=== PATIENT | male | born 1965 | race Caucasian/White ===

== ENCOUNTER 2017-01-08 16:06 | Inpatient (IN) ==
--- NOTE | 2017-01-08 16:51 | Emergency Department Note ---
Disposition Clinical Impression: Community acquired pneumonia Sepsis Qualifiers: Sepsis type: sepsis due to unspecified organism Qualified Code(s): A41.9 - Sepsis, unspecified organism Disposition: Admitted As Inpatient Condition: Good SOB HPI - General Chief Complaint: ED Shortness of Breath/Dyspnea Stated Complaint: MIGUEL Time Seen by Provider: 01/08/17 16:35 Source: patient, family Mode of arrival: private vehicle Limitations: no limitations Nursing Notes Reviewed: Yes Vital Signs Reviewed: Yes - History of Present Illness 51-year-old male history of 40 pack year smoking who presents to the ER with family with a chief complaint of shortness of breath, cough and fever. Patient reports he has not been feeling well since . He felt weak at work but throughout the weekend he has developed a productive cough with yellow sputum. 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 He does not usually require oxygen supplementation or any medications for his smoking. He reports a significant amount of drainage from his sinuses each night but that seems to be more chronic. He denies any recent illnesses or hospitalizations. No history of diabetes, hypertension, UT, CAD or stents. No other complaints. Pt Subjective Complaint: shortness of breath, cough Onset (ago): day(s) (3) Severity: severe Consistency/Duration: constant Improves with: nothing Worsens with: nothing Known history of: other (Smoking) Associated symptoms: Reports: chest pain (With coughing), fever, cough, sputum production Treatment prior to arrival: none Cough present: Yes Cough Description: Involuntary Cough Frequency: Intermittent Sputum production: Yes Sputum Amount: Small Sputum Color: Yellow - Related Data Home oxygen amount: none Home Medications Medication Instructions Recorded Confirmed Flexeril 01/08/17 Motrin 01/08/17 Neurontin 01/08/17 Prozac 01/08/17 Vicodin 01/08/17 Allergies Allergy/AdvReac Type Severity Reaction Status Date / Time No Known Allergies Allergy Verified 01/08/17 15:20 All systems ED: reviewed and negative except as stated. Constitutional: Reports: fever, chills, weakness Cardiovascular: Reports: chest pain (With cough) Respiratory: Reports: cough, dyspnea, sputum production Gastrointestinal: Denies: abdominal pain, nausea, vomiting Past Medical History - Past Medical History Attestation: Yes The following information was validated with the patient. Source: patient Medical history: Reports: no medical history Surgical history: Reports: non-contributory Psychiatric history: Reports: anxiety, depression - Social History Smoking Status: Current every day smoker Smokeless Tobacco Status: No Alcohol use: Reports: none Drug use: Reports: none Physical Exam - General Limitations: no limitations General appearance: alert, in distress - Head Head exam: atraumatic, normocephalic, normal inspection - Eye Eye exam: Present: normal appearance, EOMI - ENT ENT exam: normal exam - Neck Neck exam: Present: normal inspection - Chest Chest inspection: Present: normal inspection, symmetric chest wall rise - Respiratory Respiratory exam: Present: respiratory distress (The patient is tachypneic breathing in the 20s. He has bilateral wheezing with prolonged expiratory phase with diminished breath sounds in the left.), wheezes, accessory muscle use - Cardiovascular Cardiovascular exam: Present: regular rate, normal rhythm, irregular rhythm - Abdominal Exam Abdominal exam: Present: soft, Non-Tender. Absent: tenderness - Extremities Exam Extremities exam: Present: normal inspection, full ROM - Expanded Upper Extremity Exam Shoulder exam: Present: normal inspection, full ROM Arm exam: Present: normal inspection, full ROM Elbow exam: Present: normal inspection, full ROM Forearm/Wrist exam: Present: normal inspection, full ROM Hand exam: Present: normal inspection, full ROM - Expanded Lower Extremity Exam Hip/Pelvis exam: Present: normal inspection, full ROM Upper leg exam: Present: normal inspection, full ROM Knee exam: Present: normal inspection, full ROM Lower leg exam: Present: normal inspection, full ROM Ankle exam: Present: normal inspection, full ROM Foot/toe exam: Present: normal inspection, full ROM - Neurological Exam Neurological exam: Present: alert - Psychiatric Psychiatric exam: Present: normal affect, normal mood - Skin Skin exam: Present: warm, dry, intact, normal color Course Course Narrative: Patient seen and examined. Vital signs reviewed. Febrile here to 102. He is to Make as well and 92% on room air. Supplemental oxygen has been applied respiratory therapy has been paged for DuoNeb treatments. He meets Sirs criteria so we will obtain lactate as well as blood cultures as well as obtain EKG and chest x-ray. Patient will likely require admission given his oxygen requirement and suspected pneumonia. - Reevaluation(s) Reevaluation #1: I discussed results of the x-ray with the patient and family. Reevaluation #2: CT chest showing lower lobe pneumonia. I discussed with the patient and that he will be admitted to the hospital. Patient and family in agreement. Vital Signs Temperature 102.2 F H 01/08/17 16:07 Pulse Rate 91 01/08/17 16:07 Respiratory Rate 22 01/08/17 16:07 Blood Pressure 179/82 01/08/17 16:07 O2 Sat by Pulse Oximetry 92 01/08/17 16:07 Temperature 102.2 F H 01/08/17 16:07 Pulse Rate 91 01/08/17 16:07 Respiratory Rate 22 01/08/17 17:14 Blood Pressure 179/82 01/08/17 16:07 O2 Sat by Pulse Oximetry 96 01/08/17 17:14 Oxygen Delivery Oxygen Delivery Room Air Shortness of Breath/Dyspnea - MDM Narrative Medical decision making narrative: 51-year-old male presents to the ER after feeling unwell for the last 3 days. He has had fevers at home as well as a productive cough with yellow sputum. He does smoke but is not on oxygen. He was 92% on room air here. Febrile at 102. X-ray showing primary congestion. However CT scan of the chest shows lower lobe infiltrates. His white count is normal. Other labs are within normal limits. He was treated with 2 L of normal saline as he is currently hemodynamically stable instead of the typical 30 mL/kg with a normal lactate. Blood cultures have been obtained and we did treat him with Vanc, Zosyn and Levaquin. Patient admitted to the hospitalist service for further management. - Lab Data Lab results reviewed: Yes I reviewed the patient's lab results. Result diagrams: 01/08/17 16:50 01/08/17 16:50 Lab Results 01/08/17 01/08/17 01/08/17 Range/Units 16:50 16:50 16:50 WBC 9.4 (4.3-11.1) K/mcL RBC 6.06 H (4.19-5.50) M/mcL Hgb 17.1 H (12.9-16.9) g/dL Hct 54.2 H (37.5-50.1) % MCV 89.4 (83.0-100.0) fL MCH 28.2 (28.0-33.3) pg MCHC 31.5 L (31.6-35.5) g/dL RDW 14.4 (11.5-14.5) % Plt Count 179 (140-400) K/mcL MPV 10.1 (9.4-12.4) fL Immature Gran % 0.5 (0-4) % Seg Neutrophils % 68.8 % Lymphocytes % 13.5 % Monocytes % 16.3 % Eosinophils % 0.5 % Basophils % 0.4 % Neutrophils # 6.4 (1.6-8.9) K/mcL Lymphocytes # 1.3 (0.6-4.6) K/mcL Monocytes # 1.5 H (0.0-1.3) K/mcL Eosinophils # 0.1 (0.0-0.6) K/mcL Basophils # 0.0 (0.0-0.2) K/mcL Immature Plt Fraction 5.8 (1.1-6.1) % Sodium 139 (136-145) mEq/L Potassium 4.3 (3.5-4.5) mEq/L Chloride 99 (98-109) mEq/L Carbon Dioxide 32 H (19-29) mEq/L BUN 9 (8-26) mg/dL Creatinine 0.88 (0.72-1.25) mg/dL Est GFR ( Amer) > 60 (> 60) Est GFR (Non-Af Amer) > 60 (> 60) BUN/Creatinine Ratio 10 (6-26) Glucose 100 H (70-99) mg/dL Calculated Osmolality 287 (280-300) Lactic Acid (0.5-2.2) mmol/L Calcium 9.0 (8.6-10.8) mg/dL Troponin I 0.02 (0-0.03) ng/mL B-Natriuretic Peptide (0-100) pg/mL 01/08/17 01/08/17 Range/Units 16:50 16:50 WBC (4.3-11.1) K/mcL RBC (4.19-5.50) M/mcL Hgb (12.9-16.9) g/dL Hct (37.5-50.1) % MCV (83.0-100.0) fL MCH (28.0-33.3) pg MCHC (31.6-35.5) g/dL RDW (11.5-14.5) % Plt Count (140-400) K/mcL MPV (9.4-12.4) fL Immature Gran % (0-4) % Seg Neutrophils % % Lymphocytes % % Monocytes % % Eosinophils % % Basophils % % Neutrophils # (1.6-8.9) K/mcL Lymphocytes # (0.6-4.6) K/mcL Monocytes # (0.0-1.3) K/mcL Eosinophils # (0.0-0.6) K/mcL Basophils # (0.0-0.2) K/mcL Immature Plt Fraction (1.1-6.1) % Sodium (136-145) mEq/L Potassium (3.5-4.5) mEq/L Chloride (98-109) mEq/L Carbon Dioxide (19-29) mEq/L BUN (8-26) mg/dL Creatinine (0.72-1.25) mg/dL Est GFR ( Amer) (> 60) Est GFR (Non-Af Amer) (> 60) BUN/Creatinine Ratio (6-26) Glucose (70-99) mg/dL Calculated Osmolality (280-300) Lactic Acid 1.2 (0.5-2.2) mmol/L Calcium (8.6-10.8) mg/dL Troponin I (0-0.03) ng/mL B-Natriuretic Peptide 26 (0-100) pg/mL - Radiology Data Radiology results reviewed: Yes I reviewed the patient's radiology results. Chest X-Ray 01/08/17 16:11 IMPRESSION: 1. Mild pulmonary vascular congestion, increased. D/ / Mark Layne MD / Mark Layne MD Interpreting Provider: Mark Layne MD Chest CT 01/08/17 17:38 IMPRESSION: 1. Lower lobe patchy consolidation with bronchial wall thickening. Given the clinical context, findings compatible with bronchopneumonia. 2. Centrilobular nodules in the left lower lobe, likely bronchiolitis. D/ / 01/08/2017 18:39:56 Spike Sierra MD / elenita Interpreting Provider: Spike Sierra MD - EKG Data EKG attestation: Yes I reviewed and interpreted this EKG. EKG results narrative: EKG demonstrates normal sinus rhythm with a rate of 86 bpm. Normal axis. Normal intervals. No ST elevations or depressions. No acute ischemic findings. S.B.Eliud - Meggan Situation: Demographics, MOA Background: Presenting Complaint, Relevant PMH, Meds, & Allergies Assessment: Vital Signs, Course and respsone to treatment, Exam Concerns, Patient/Family Expectation, Pertinant Lab Results, Outstanding Labs Recommendation: Barrier(s) to disposition, Recommendation based on pending studies, treatments, or consults S.B.A.Krista Report Given to: Dr. Sarthak Broderick Repor Time: 19:30 (attending spoke with hospitalist)
[2017-01-08 17:00] LABS: Basophils % 0.4 %; Eosinophils # 0.1 K/mcL (0.0-0.6); Eosinophils % 0.5 %; Hematocrit 54.2 % (37.5-50.1); Hemoglobin 17.1 g/dL (12.9-16.9); Immature Granulocytes % 0.5 % (0-4); Immature Platelets 5.8 % (1.1-6.1); Lymphocytes # 1.3 K/mcL (0.6-4.6); Lymphocytes % 13.5 %; Mean Corpuscular HGB Conc 31.5 g/dL (31.6-35.5); Mean Corpuscular Hemoglobin 28.2 pg (28.0-33.3); Mean Corpuscular Volume 89.4 fL (83.0-100.0); Mean Platelet Volume 10.1 fL (9.4-12.4); Monocytes # 1.5 K/mcL (0.0-1.3); Monocytes % 16.3 %; Neutrophils # 6.4 K/mcL (1.6-8.9); Platelet Count 179 K/mcL (140-400); Red Blood Count 6.06 M/mcL (4.19-5.50); Red Cell Distribution Width 14.4 % (11.5-14.5); Segmented Neutrophils % 68.8 %
[2017-01-08] MEDS ORDERED: Ipratropium/Albuterol Neb 3 ML IH ONE (17:08)
[2017-01-08] MEDS ORDERED: Ipratropium/Albuterol Neb 3 ML ONE (17:10)
[2017-01-08 17:14] LABS: BUN/Creatinine Ratio 10 (6-26); Blood Urea Nitrogen 9 mg/dL (8-26); Carbon Dioxide 32 mEq/L (19-29); Chloride 99 mEq/L (98-109); Glucose 100 mg/dL (70-99); Osmolality,Calculated 287 (280-300); Potassium 4.3 mEq/L (3.5-4.5); Sodium 139 mEq/L (136-145); eGFR For African Americans > 60 (> 60); eGFR For Non-African Americans > 60 (> 60)
[2017-01-08] MEDS ORDERED: Levofloxacin 750 MG/150 ML 750 MG/150 ML BAG IVPB ONE (17:28)
[2017-01-08] MEDS ORDERED: Piperacillin/Tazobactam 3.375 GM in D5% in Water (Mini-Bag+) 100 ML IVPB ONE (17:28)
[2017-01-08] MEDS ORDERED: Vancomycin 2,000 MG in D5% in Water 250 ML IVPB ONE (17:28)
--- NOTE | 2017-01-08 17:39 | Emergency Department Note ---
Disposition Clinical Impression: Community acquired pneumonia, Sepsis Disposition: Admitted As Inpatient Condition: Good General Adult HPI - General Chief complaint: ED Shortness of Breath/Dyspnea Stated complaint: MIGUEL Time Seen by Provider: 01/08/17 16:35 Source: patient, family Mode of arrival: private vehicle Limitations: no limitations - History of Present Illness Pain Scale: 8 - Related Data Home Medications Medication Instructions Recorded Confirmed Flexeril 01/08/17 Motrin 01/08/17 Neurontin 01/08/17 Prozac 01/08/17 Vicodin 01/08/17 Allergies Allergy/AdvReac Type Severity Reaction Status Date / Time No Known Allergies Allergy Verified 01/08/17 15:20 Constitutional: Reports: fever, chills, weakness Cardiovascular: Reports: chest pain (With cough) Respiratory: Reports: cough, dyspnea, sputum production Gastrointestinal: Denies: abdominal pain, nausea, vomiting Past Medical History - Past Medical History Medical history: Reports: no medical history Surgical history: Reports: non-contributory Psychiatric history: Reports: anxiety, depression - Social History Smoking Status: Current every day smoker Smokeless Tobacco Status: No Alcohol use: Reports: none Drug use: Reports: none Physical Exam - General Limitations: no limitations General appearance: alert, in distress Course - Reevaluation(s) Reevaluation #1: I saw the patient with the resident, Dr. Lee. Patient presents with fever, cough, shortness of breath. He started getting sick on . Cough is productive of thick white sputum. He reports significant shortness of breath that is limiting his activity level at home. On examination he has a temperature greater than 102 despite having taken 800 mg of Motrin an hour prior to arrival. He is tachypneic, O2 sat is low on room air, he has diffuse intense wheezing in all lung campbell. Currently receiving a breathing treatment. Initial chest x-ray was a poor inspiratory effort. Were going to go ahead and proceed with CT of the chest to evaluate the chest better. I think this is a respiratory infection associated with fever. He has multiple surgical criteria with a source of infection in the lungs and therefore will be treated as sepsis although his blood pressure is good and his labs look good. We initiated the initial sepsis antibiotics. Were awaiting the CT scan of the chest. In the end the patient's going need to be admitted for pulmonary infection, bronchospasm and oxygen requirement. Vital Signs Temperature 102.2 F H 01/08/17 16:07 Pulse Rate 91 01/08/17 16:07 Respiratory Rate 22 01/08/17 16:07 Blood Pressure 179/82 01/08/17 16:07 O2 Sat by Pulse Oximetry 92 01/08/17 16:07 Temperature 99.0 F 01/08/17 21:34 Pulse Rate 89 01/08/17 21:34 Respiratory Rate 21 01/08/17 21:34 Blood Pressure 146/79 01/08/17 21:34 O2 Sat by Pulse Oximetry 93 01/08/17 21:34 Oxygen Delivery Oxygen Delivery Room Air Medical Decision Making - Lab Data Result diagrams: 01/08/17 16:50 01/08/17 16:50 Lab Results 01/08/17 01/08/17 01/08/17 Range/Units 16:50 16:50 16:50 WBC 9.4 (4.3-11.1) K/mcL RBC 6.06 H (4.19-5.50) M/mcL Hgb 17.1 H (12.9-16.9) g/dL Hct 54.2 H (37.5-50.1) % MCV 89.4 (83.0-100.0) fL MCH 28.2 (28.0-33.3) pg MCHC 31.5 L (31.6-35.5) g/dL RDW 14.4 (11.5-14.5) % Plt Count 179 (140-400) K/mcL MPV 10.1 (9.4-12.4) fL Immature Gran % 0.5 (0-4) % Seg Neutrophils % 68.8 % Lymphocytes % 13.5 % Monocytes % 16.3 % Eosinophils % 0.5 % Basophils % 0.4 % Neutrophils # 6.4 (1.6-8.9) K/mcL Lymphocytes # 1.3 (0.6-4.6) K/mcL Monocytes # 1.5 H (0.0-1.3) K/mcL Eosinophils # 0.1 (0.0-0.6) K/mcL Basophils # 0.0 (0.0-0.2) K/mcL Immature Plt Fraction 5.8 (1.1-6.1) % Sodium 139 (136-145) mEq/L Potassium 4.3 (3.5-4.5) mEq/L Chloride 99 (98-109) mEq/L Carbon Dioxide 32 H (19-29) mEq/L BUN 9 (8-26) mg/dL Creatinine 0.88 (0.72-1.25) mg/dL Est GFR ( Amer) > 60 (> 60) Est GFR (Non-Af Amer) > 60 (> 60) BUN/Creatinine Ratio 10 (6-26) Glucose 100 H (70-99) mg/dL Calculated Osmolality 287 (280-300) Lactic Acid (0.5-2.2) mmol/L Calcium 9.0 (8.6-10.8) mg/dL Troponin I 0.02 (0-0.03) ng/mL B-Natriuretic Peptide (0-100) pg/mL 01/08/17 01/08/17 Range/Units 16:50 16:50 WBC (4.3-11.1) K/mcL RBC (4.19-5.50) M/mcL Hgb (12.9-16.9) g/dL Hct (37.5-50.1) % MCV (83.0-100.0) fL MCH (28.0-33.3) pg MCHC (31.6-35.5) g/dL RDW (11.5-14.5) % Plt Count (140-400) K/mcL MPV (9.4-12.4) fL Immature Gran % (0-4) % Seg Neutrophils % % Lymphocytes % % Monocytes % % Eosinophils % % Basophils % % Neutrophils # (1.6-8.9) K/mcL Lymphocytes # (0.6-4.6) K/mcL Monocytes # (0.0-1.3) K/mcL Eosinophils # (0.0-0.6) K/mcL Basophils # (0.0-0.2) K/mcL Immature Plt Fraction (1.1-6.1) % Sodium (136-145) mEq/L Potassium (3.5-4.5) mEq/L Chloride (98-109) mEq/L Carbon Dioxide (19-29) mEq/L BUN (8-26) mg/dL Creatinine (0.72-1.25) mg/dL Est GFR ( Amer) (> 60) Est GFR (Non-Af Amer) (> 60) BUN/Creatinine Ratio (6-26) Glucose (70-99) mg/dL Calculated Osmolality (280-300) Lactic Acid 1.2 (0.5-2.2) mmol/L Calcium (8.6-10.8) mg/dL Troponin I (0-0.03) ng/mL B-Natriuretic Peptide 26 (0-100) pg/mL Attestation Statement - Attestation Attestation: I, Dr. Fabian, examined this patient [id number] and my medical decision- making was reviewed with Dr. Lee, Resident Physician. I agree with the documented findings, disposition and treatment plan as described except to the extent set forth below. Please see my progress notes for details.
[2017-01-08] MEDS: 0.9 % Sodium Chloride 1,000 ML IVC SCH ×2 (17:57→18:03)
[2017-01-08] MEDS ORDERED: *HR* OxyCODONE/APAP 5/325 TABLET PO ONE (19:28)
[2017-01-08 19:53] LABS: Bilirubin,Urine Negative (Negative); Blood,Urine Negative (Negative); Clarity,Urine Clear (Clear); Color,Urine Yellow (Yellow); Glucose,Urine (UA) Normal (Normal); Ketones,Urine Negative (Negative); Leukocyte Esterase,Urine Negative (Negative); Nitrite,Urine Negative (Negative); PH,Urine 5.5 pH Units (5.0-8.0); Protein,Urine Negative (Neg-Trace); Specific Gravity,Urine 1.026 (1.010-1.025); Urobilinogen,Urine Normal (Normal)
[2017-01-08] MEDS ORDERED: Naloxone 0.4 MG/ML INJ IVP PRN (21:52)
[2017-01-08] MEDS ORDERED: methylPREDNISolone 125 MG/2 ML VIAL IVP ONE (21:54)
[2017-01-08] MEDS ORDERED: Ipratropium/Albuterol Neb 3 ML IH PRN (21:54)
--- NOTE | 2017-01-08 21:58 | Internal Med History&Physical ---
Date of Encounter: 01/08/17 Time of Encounter: 21:57 Assessment and Plan (1) Pneumonia Current visit: Yes Status: Acute CT scan of the chest reports lower lobe pneumonia. Will treat with levofloxacin. sputum cultures Qualifiers: Pneumonia type: due to unspecified organism Laterality: right Lung location: lower lobe of lung Qualified Code(s): J18.1 - Lobar pneumonia, unspecified organism (2) Bronchiectasis Current visit: Yes Status: Suspected On my personal review of the CT scan, there is evidence of bronchiectasis in the right lower lobe. Emperically treat with levofloxacin. Sputum cultures. Pulmonology consult. Qualifiers: Bronchiectasis type: with acute exacerbation Qualified Code(s): J47.1 - Bronchiectasis with (acute) exacerbation (3) COPD with acute exacerbation Current visit: Yes Status: Suspected Possible undiagnosed COPD with acute exacerbation. Treat with systemic steroids , bronchodilators, levofloxacin. (4) Acute respiratory failure Current visit: Yes Status: Acute Possibly due to to combination of pneumonia, COPD exacerbation and bronchiectasis. supplemental oxygen. Qualifiers: Respiratory failure complication: hypoxia Qualified Code(s): J96.01 - Acute respiratory failure with hypoxia (5) Sepsis Current visit: Yes Status: Acute Likely due to pneumonia> Lactate level is not elevated. Treat with IV antibiotics and IV fluids. Qualifiers: Sepsis type: sepsis due to unspecified organism Qualified Code(s): A41.9 - Sepsis, unspecified organism (6) Morbid obesity with BMI of 50.0-59.9, adult Current visit: Yes Status: Chronic Supportive care (7) DVT prophylaxis Current visit: Yes Status: Acute enoxaparin (8) Nicotine dependence Current visit: Yes Status: Chronic Counseled for smoking cessation Qualifiers: Nicotine product type: cigarettes Substance use status: unspecified nicotine-induced disorder Qualified Code(s): F17.219 - Nicotine dependence, cigarettes, with unspecified nicotine-induced disorders Internal Medicine - H&P: HPI Chief complaint: shortness of breath Admitted From: Emergency Dept Plans for Post Hospital Care: Home History of present illness: Mr. Castellon is a 51 year old male with history of 40 pack year smoking, presents to the ER with 4 day h/o shortness of breath on exertion, cough with white sputum. Reports some chest pain with cough. 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 He reports h/o multiple episodes of what the pt thinks as sinusitis / bronchitis and was treated with antibiotics. He reports feeling tired. He denies subjective fever, abdominal pain, nausea, vomiting, dysuria, hematuria, changes in bowel habits. He was evaluated in the emergency department and was noted to have temperature 100.2F. CT scan of the chest showed Lower lobe patchy consolidation with bronchial wall thickening, compatible with bronchopneumonia. He was given Floxin, vancomycin and Zosyn in the emergency department. He is admitted to the hospitalist service for further workup and management. Past Med Surg Social Fam HX - Past Medical History Medical history: kidney stones Psychiatric history: anxiety, depression - Past Surgical History Surgical History: non-contributory - Social History Smoking Status: Current every day smoker Packs per day: 1 Smokeless Tobacco Status: No Alcohol use: none Drug use: none - Family History Mother Hx Family Cancer: Yes Internal Medicine - H&P: Meds Flexeril 01/08/17 [History] Motrin 01/08/17 [History] Neurontin 01/08/17 [History] Prozac 01/08/17 [History] Vicodin 01/08/17 [History] Allergies No Known Allergies Allergy (Verified 01/08/17 15:20) All Systems PM: A 10-system review of systems was performed and is negative for pertinent findings except as documented above in the HPI. - Constitutional Vitals: Temp Pulse Resp BP Pulse Ox 99.0 F 89 21 146/79 93 01/08/17 21:34 01/08/17 21:34 01/08/17 21:34 01/08/17 21:34 01/08/17 21:34 Exam: General: Not in acute distress at the time of my evaluation HEENT: Oral mucosa is moist. No conjunctival palor or scleral icterus Neck: No obvious neck swellings Lungs: B/L occasional wheeze present. Right basal crackles present Cardiac: Regular rate and rhythm. No significant murmurs Abdomen: Obese, non tender. Bowel sounds present Genitourinary: No young catheter Neurological: Alert and oriented. No gross localizing deficits Psych: Not aggressive or agitated Extremities: B/L leg edema Skin: No generalized rash Internal Med - H&P Results - Labs CBC & Chem 7: 01/09/17 03:41 01/09/17 03:41 Labs: Urine 01/08/17 Range/Units 19:43 Urine Color Yellow (Yellow) Urine Clarity Clear (Clear) Urine pH 5.5 (5.0-8.0) pH Units Ur Specific Thayer 1.026 H (1.010-1.025) Urine Protein Negative (Neg-Trace) mg/dL Urine Glucose (UA) Normal (Normal) mg/dL - EKG Data -: EKG Interpreted by Myself EKG shows normal: sinus rhythm Rate: normal - Impressions ITS Impressions Chest X-Ray 01/08/17 16:11 IMPRESSION: 1. Mild pulmonary vascular congestion, increased. D/ / Mark Layne MD / Mark Layne MD Interpreting Provider: Mark Layne MD Chest CT 01/08/17 17:38 IMPRESSION: 1. Lower lobe patchy consolidation with bronchial wall thickening. Given the clinical context, findings compatible with bronchopneumonia. 2. Centrilobular nodules in the left lower lobe, likely bronchiolitis. D/ / 01/08/2017 18:39:56 Spike Sierra MD / eelnita Interpreting Provider: Spike Sierra MD
[2017-01-08] MEDS ORDERED: Acetaminophen 325 MG TABLET PO PRN (22:24)
[2017-01-08] MEDS: Ipratropium/Albuterol Neb 3 ML IH SCH ×2 (22:24→22:30)
[2017-01-08] MEDS: *HR* HYDROmorphone (PF) 1 MG/ML SYRINGE IVP PRN (22:42)
[2017-01-09] MEDS: *HR* HYDROcodone/Acet 5/325 mg TABLET PO PRN ×3 (02:39→19:00)
[2017-01-09 04:29] LABS: Basophils % 0.2 %; Hematocrit 53.8 % (37.5-50.1); Hemoglobin 16.9 g/dL (12.9-16.9); Immature Granulocytes % 0.4 % (0-4); Lymphocytes # 0.6 K/mcL (0.6-4.6); Lymphocytes % 6.6 %; Mean Corpuscular HGB Conc 31.4 g/dL (31.6-35.5); Mean Corpuscular Hemoglobin 28.2 pg (28.0-33.3); Mean Corpuscular Volume 89.8 fL (83.0-100.0); Mean Platelet Volume 10.7 fL (9.4-12.4); Monocytes # 0.3 K/mcL (0.0-1.3); Neutrophils # 8.6 K/mcL (1.6-8.9); Platelet Count 174 K/mcL (140-400); Red Blood Count 5.99 M/mcL (4.19-5.50); Red Cell Distribution Width 14.2 % (11.5-14.5); Segmented Neutrophils % 89.8 %
[2017-01-09 04:46] LABS: BUN/Creatinine Ratio 11 (6-26); Blood Urea Nitrogen 9 mg/dL (8-26); C-Reactive Protein 31 mg/L (Less than 5); Calcium 8.6 mg/dL (8.6-10.8); Carbon Dioxide 26 mEq/L (19-29); Chloride 100 mEq/L (98-109); Glucose 159 mg/dL (70-99); Magnesium 1.9 mg/dL (1.6-2.6); Osmolality,Calculated 284 (280-300); Potassium 4.5 mEq/L (3.5-4.5); Sodium 136 mEq/L (136-145); eGFR For African Americans > 60 (> 60); eGFR For Non-African Americans > 60 (> 60)
[2017-01-09] MEDS: Ipratropium/Albuterol Neb 3 ML IH SCH ×4 (04:47→23:26)
[2017-01-09] MEDS: *HR* Enoxaparin 40 MG/0.4 ML SYRINGE SQ SCH (05:42)
[2017-01-09] MEDS: methylPREDNISolone 125 MG/2 ML VIAL IVP SCH ×3 (05:42→21:06)
[2017-01-09] MEDS ORDERED: methylPREDNISolone 125 MG/2 ML VIAL IVP SCH (06:00)
--- NOTE | 2017-01-09 08:58 | Internal Med Progress Note ---
<Shlomo Smith - Last Filed: 01/09/17 09:29> Date of Encounter: 01/09/17 Time of Encounter: 08:56 - Assessment and plan (1) Acute respiratory failure Current Visit: Yes Status: Acute Assessment and plan: Likely related to pneumonia as well as underlying lung pathology has been undiagnosed this time, possibly COPD and bronchiectasis. Continue supplemental oxygen to keep saturation above 90%. Qualifiers: Respiratory failure complication: hypoxia Qualified Code(s): J96.01 - Acute respiratory failure with hypoxia (2) Sepsis Current Visit: Yes Status: Resolved Assessment and plan: Patient presented with a heart rate greater than 90 and temperature 102.2 Fahrenheit with evidence of pneumonia. Resolved at this time. Continue antibiotic treatment. Cultures are pending. Qualifiers: Sepsis type: sepsis due to unspecified organism Qualified Code(s): A41.9 - Sepsis, unspecified organism (3) Community acquired pneumonia Current Visit: Yes Status: Acute Assessment and plan: Respiratory status appears improved. Continue Levaquin. (4) Bronchiectasis Current Visit: Yes Status: Suspected Assessment and plan: With evidence on CT scan of the chest. No underlying diagnosed lung history. Pulmonary consult pending. Continue breathing treatments, steroids. Qualifiers: Bronchiectasis type: with acute exacerbation Qualified Code(s): J47.1 - Bronchiectasis with (acute) exacerbation (5) COPD with acute exacerbation Current Visit: Yes Status: Suspected Assessment and plan: Patient has not been formally diagnosed but given his smoking history patient likely has underlying COPD and is in acute exacerbation with shortness of breath , cough, increased sputum production. Continue with antibiotics as discussed above, bronchodilators, IV steroids. Patient should have formal PFTs as an outpatient. (6) Nicotine dependence Current Visit: Yes Status: Chronic Assessment and plan: Patient has [id number] history. Discussed smoking cessation with the patient , he does not appear interested at this time. We will continue to discuss. Qualifiers: Nicotine product type: cigarettes Substance use status: unspecified nicotine-induced disorder Qualified Code(s): F17.219 - Nicotine dependence, cigarettes, with unspecified nicotine-induced disorders (7) DVT prophylaxis Current Visit: Yes Status: Acute Assessment and plan: Lovenox 40 mg subcutaneous daily. - Subjective Interval history: Patient seen and examined at bedside. Patient states he feels mildly better than yesterday. He states he is still coughing but it is minimally productive. He reports pain in his chest and abdomen when coughing. - Constitutional Vitals: Temp Pulse Resp BP Pulse Ox 98.4 F 83 16 166/100 98 01/09/17 06:44 01/09/17 06:44 01/09/17 06:44 01/09/17 06:44 01/09/17 07:54 General appearance: Present: A&O X 3, obese - Respiratory Respiratory exam: Present: rhonchi (L upper and lower lobes), wheezes ( throughout). Absent: respiratory distress, tachypnea - Cardiovascular Cardiovascular exam: Present: RRR. Absent: gallop, rubs, systolic murmur - GI/Abdominal GI/Abdominal exam: Present: normal bowel sounds, soft. Absent: distended, tenderness Internal Medicine: Result - Labs CBC & Chem 7: 01/09/17 03:41 01/09/17 03:41 Labs: Short CBC 01/09/17 Range/Units 03:41 WBC 9.5 (4.3-11.1) K/mcL Hgb 16.9 (12.9-16.9) g/dL Hct 53.8 H (37.5-50.1) % Plt Count 174 (140-400) K/mcL Neutrophils # 8.6 (1.6-8.9) K/mcL BMP 01/09/17 03:41 Sodium 136 Potassium 4.5 Chloride 100 Carbon Dioxide 26 BUN 9 Creatinine 0.79 Glucose 159 H Calcium 8.6 Consult Discharge Plan - Plan Referrals: Sherman Mccall Jr, MD [Primary Care Provider] - <Florinda Tolliver - Last Filed: 01/09/17 13:58> Date of Encounter: 01/09/17 - Constitutional Vitals: Temp Pulse Resp BP Pulse Ox 98.0 F 83 18 167/90 98 01/09/17 10:50 01/09/17 10:50 01/09/17 10:50 01/09/17 10:50 01/09/17 10:50 Internal Medicine: Result - Labs CBC & Chem 7: 01/09/17 03:41 01/09/17 03:41 Labs: Short CBC 01/09/17 Range/Units 03:41 WBC 9.5 (4.3-11.1) K/mcL Hgb 16.9 (12.9-16.9) g/dL Hct 53.8 H (37.5-50.1) % Plt Count 174 (140-400) K/mcL Neutrophils # 8.6 (1.6-8.9) K/mcL BMP 01/09/17 03:41 Sodium 136 Potassium 4.5 Chloride 100 Carbon Dioxide 26 BUN 9 Creatinine 0.79 Glucose 159 H Calcium 8.6 - Attending Attestation I saw and examined pt. I have discussed with Resident Dr Cunningham regarding pt's management plan. I agree with the documentation. Pt still has SOB and cough, improved after treatment. Treat as acute pneumonia and brochitis. Pt is a current smoker, need to r/o COPD. Will cont abx, steroid and bronchodilator and consult pulmonology.
[2017-01-09] MEDS: Lactobacillus 1 EACH CAP.SPRINK PO SCH ×2 (09:55→21:07)
[2017-01-09] MEDS: FLUoxetine 20 MG CAPSULE PO SCH (09:59)
--- NOTE | 2017-01-09 16:57 | Pulmonology Consult Note ---
Date of Encounter: 01/09/17 Time of Encounter: 16:15 Assessment and Plan (1) Dyspnea Current Visit: No Status: Acute 51-year-old male admitted for acute dyspnea with history of several years of intermittent similar symptoms. Described as upper respiratory complaints, frequent diagnoses of bronchitis. Etiology of current presentation is not clear but given his smoking history it is possible that he has undiagnosed underlying COPD. No prior diagnosis of asthma, however he does have significant wheezing on exam. Reviewed CT imaging does show a right lower lobe abnormality, however this finding in this clinical setting is not consistent with pneumonia. Patient has shown clinical response over a relatively short period to systemic corticosteroids and inhaled bronchodilators which would favor airway disease such as asthma or COPD over pneumonia. Reviewed CT images does not reveal the presence of bronchiectasis. The appearance of the distal bronchi in the lower lobe is more consistent with bronchial cuffing in the surrounding parenchymal changes highlighting the lumen of the bronchi Recommendations: 1: Continue systemic corticosteroids. Consider reducing dose to 50 mg oral prednisone daily. 2: Continue inhaled bronchodilators but would discontinue when necessary duo nebs in favor of when necessary albuterol. Continue scheduled duo nebs. 3: Low suspicion for pneumonia, discontinue Levaquin. Begin 5 day course of oral azithromycin to 500 mg on day 1 followed by 250 mg by mouth daily for 4 days. 4: Recommendation patient be referred for outpatient evaluation of allergic rhinitis as well as her pulmonary function testing and consideration of outpatient pulmonary consultation. 5: Recommend discharge with inhaled bronchodilator medications to include as needed albuterol and ICS/LABA Qualifiers: Dyspnea type: shortness of breath Qualified Code(s): R06.02 - Shortness of breath (2) Nicotine dependence Current Visit: Yes Status: Chronic Patient estimates [id number] active smoking history. Discussed benefits of tobacco cessation and the contribution of ongoing tobacco smoke exposure to his current presentation. Recommended patient seriously consider cessation of tobacco use. Qualifiers: Nicotine product type: cigarettes Substance use status: unspecified nicotine-induced disorder Qualified Code(s): F17.219 - Nicotine dependence, cigarettes, with unspecified nicotine-induced disorders History of Present Illness Consult date: 01/09/17 Reason for consult: dyspnea, cough, abnormal CXR/CT Chief complaint: Dyspnea and cough History of present illness: Consulted by internal medicine for evaluation of a 51-year-old male admitted yesterday for several days of dyspnea, cough, wheezing. Patient states the symptoms began several days prior to admission following what he believes to then heat exhaustion after extensive exertion while at work. Patient reports that since of last week, he has felt significant cramping in his abdomen and extremities. Patient also notes persistent nonproductive cough associated with resting and exertional dyspnea. Patient states that he has been having similar symptoms intermittently several times a year for the past 5- 10 years. Reports multiple diagnoses of bronchitis. States that respiratory syndromes typically begin with upper respiratory symptoms which she associates with seasonal or environmental allergies. This is typically followed by lower respiratory symptoms and often diagnoses bronchitis. Patient states his current symptoms are worse than his usual episodes. Since admission, patient been treated with inhaled bronchodilators, systemic corticosteroids, antibiotics. Patient still reports some ongoing dyspnea feels that his symptoms are improving since his admission. Past Med Surg Social Fam HX - Past Medical History Medical history: kidney stones Psychiatric history: anxiety, depression - Past Surgical History Surgical History: non-contributory - Social History Smoking Status: Current every day smoker Packs per day: 1 Smokeless Tobacco Status: No Alcohol use: none Drug use: none Occupational status: employed Recent Out of Country Travel Within the Last 8 Weeks: No Exposure or Possible Exposure to Illness During Travel: No Additional social history: Employed as a arc welder apprentice. Denies using respiratory protection at work. Lives in a mobile home built 1995. Reports presence of old carpets in poor condition. Denies mold and mildew burden. - Family History Mother Hx Family Cancer: Yes Medications and Allergies Cyclobenzaprine [Flexeril] 10 mg PO TID PRN 01/09/17 [History] FLUoxetine HCl [PROzac] 20 mg PO DAILY 01/09/17 [History] Gabapentin [Neurontin] 300 mg PO HS 01/09/17 [History] Ibuprofen [Motrin] 800 mg PO Q6-8H PRN 01/09/17 [History] Multivits,Ca,Min/Iron/FA/Lycop [Men Under 50 Multivitamin Tab] 1 tab PO DAILY [History] Allergies No Known Allergies Allergy (Verified 01/09/17 09:02) All Systems: A 10-system review of systems was performed and is negative for pertinent findings except as documented above in the HPI. - Constitutional Constitutional: chills, excessive sweating, fever(s) - EENT Eyes: no loss of peripheral vision, no loss of vision Ears: no decreased hearing, no tinnitus Nose, mouth and throat: nasal congestion, nasal discharge, nasal obstruction, post-nasal drip, sinus pain, sinus pressure, no dysphagia, no odynophagia, no sore throat, no throat swelling - Cardiovascular Cardiovascular: dyspnea, dyspnea on exertion, no chest pain with activity, no claudication, no edema, no irregular heart rhythm - Respiratory Respiratory: cough, dyspnea, dyspnea on exertion, wheezing, no hemoptysis, no pain on inspirtation, no excessive phlegm production - Gastrointestinal Gastrointestinal: cramping, no abdominal pain, no diarrhea, no heartburn, no nausea, no vomiting - Genitourinary Genitourinary: no dysuria - Musculoskeletal Musculoskeletal: other (Muscle cramping) - Integumentary Integumentary: no rash - Neurological Neurological: no numbness, no paresthesias, no sensory deficit, no syncope - Hematologic/Lymphatic Hematologic/Lymphatic: no lymphadenopathy - Allergic/Immunologic Allergic/Immunologic: wheezing, no lip swelling Physical Examination Vital Signs: Vital Signs, Last 4 Hours Temp Pulse Resp BP Pulse Ox 01/09/17 15:16 97.8 F 74 18 150/86 98 General appearance: appears uncomfortable Eyes: nonicteric ENT: oropharynx moist Neck: supple, no lymphadenopathy Effort: mildly labored Inspection: normal Auscultation: bilateral: wheezes Cardiovascular: regular rate and rhythm Gastrointestinal: normoactive bowel sounds, non-tender, non-distended Integumentary: normal Extremities: no cyanosis, no edema, no clubbing Musculoskeletal: no deformities Gait: normal gait normal mental status, non-focal exam mood appropriate Results - Laboratory Findings CBC and BMP: 01/09/17 03:41 01/09/17 03:41 Abnormal lab findings: Abnormal lab results RBC 5.99 M/mcL (4.19-5.50) H 01/09/17 03:41 Hct 53.8 % (37.5-50.1) H 01/09/17 03:41 MCHC 31.4 g/dL (31.6-35.5) L 01/09/17 03:41 Glucose 159 mg/dL (70-99) H 01/09/17 03:41 POC Glucose 98 (58-89) H 01/08/17 21:18 C-Reactive Protein 31 mg/L (Less than 5) H 01/09/17 03:41 Ur Specific [place] 1.026 (1.010-1.025) H 01/08/17 19:43 - Diagnostic Findings CT scan - chest: image reviewed - Clinical Findings Intake & Output: Intake & Output 01/09/17 01/09/17 01/09/17 07:59 15:59 23:59 Intake Total 1160 / 1160 Balance 1160 / 1160 Weight 169.814 kg Consult Discharge Plan - Plan Referrals: Sherman Mccall Jr, MD [Primary Care Provider] -
--- NOTE | 2017-01-09 17:55 | Electrocardiograph Report ---
[place] [id number] Test Date: 2017-01-08 Pat Name: Dimitris Castellon Department: 103 Room: 2NE23 Gender: M Destination Coordinator: KE : 1965 Requested By: Abbe Harvey Order Number: [id number] Reading MD: Efe Espinal MD Measurements Intervals [place] Rate: 86 P: 0 IN: 183 QRS: 42 QRSD: 92 T: 60 QT: 358 QTc: 402 Interpretive Statements SINUS RHYTHM BASELINE ARTIFACT Poor R wave progression Electronically Signed On 01-09-2017 17:53:29 EDT by Efe Espinal MD
[2017-01-09] MEDS: Benzonatate 100 MG CAPSULE PO PRN (19:00)
[2017-01-09] MEDS ORDERED: Levofloxacin 750 MG/150 ML 750 MG/150 ML BAG IVPB SCH (20:00)
[2017-01-09] MEDS: Gabapentin 300 MG CAPSULE PO SCH (21:07)
[2017-01-09] MEDS: *HR* HYDROmorphone (PF) 1 MG/ML SYRINGE IVP PRN (21:09)
[2017-01-10] MEDS: *HR* HYDROmorphone (PF) 1 MG/ML SYRINGE IVP PRN ×4 (01:10→17:16)
[2017-01-10] MEDS: Ipratropium/Albuterol Neb 3 ML IH SCH ×4 (04:26→21:18)
[2017-01-10] MEDS: Benzonatate 100 MG CAPSULE PO PRN ×3 (06:15→17:16)
[2017-01-10] MEDS: methylPREDNISolone 125 MG/2 ML VIAL IVP SCH (06:17)
[2017-01-10] MEDS: *HR* Enoxaparin 40 MG/0.4 ML SYRINGE SQ SCH (06:21)
[2017-01-10] MEDS ORDERED: predniSONE 20 MG TABLET PO ONE (08:14)
[2017-01-10] MEDS ORDERED: Azithromycin 500 MG in D5% in Water 250 ML IVPB ONE (08:15)
[2017-01-10] MEDS ORDERED: Albuterol 2.5 MG/3 ML NEBULIZER IH PRN (08:15)
[2017-01-10 08:27] LABS: Basophils % 0.2 %; Hematocrit 54.6 % (37.5-50.1); Hemoglobin 16.9 g/dL (12.9-16.9); Immature Granulocytes % 0.6 % (0-4); Lymphocytes # 0.8 K/mcL (0.6-4.6); Lymphocytes % 5.1 %; Mean Corpuscular Hemoglobin 28.5 pg (28.0-33.3); Mean Corpuscular Volume 91.9 fL (83.0-100.0); Mean Platelet Volume 10.6 fL (9.4-12.4); Monocytes # 0.9 K/mcL (0.0-1.3); Monocytes % 5.6 %; Neutrophils # 14.6 K/mcL (1.6-8.9); Platelet Count 203 K/mcL (140-400); Red Blood Count 5.94 M/mcL (4.19-5.50); Red Cell Distribution Width 13.8 % (11.5-14.5); Segmented Neutrophils % 88.5 %
[2017-01-10 08:37] LABS: BUN/Creatinine Ratio 14 (6-26); Blood Urea Nitrogen 11 mg/dL (8-26); Carbon Dioxide 32 mEq/L (19-29); Chloride 101 mEq/L (98-109); Sodium 141 mEq/L (136-145); eGFR For African Americans > 60 (> 60)
[2017-01-10 08:38] LABS: Glucose 194 mg/dL (70-99); Osmolality,Calculated 297 (280-300); eGFR For Non-African Americans > 60 (> 60)
[2017-01-10 08:40] LABS: Potassium 4.7 mEq/L (3.5-4.5)
--- NOTE | 2017-01-10 10:05 | Internal Med Progress Note ---
<HawaShlomo matos - Last Filed: 01/10/17 10:02> Date of Encounter: 01/10/17 Time of Encounter: 10:02 - Assessment and plan (1) Acute respiratory failure Current Visit: Yes Status: Acute Assessment and plan: Likely related to undiagnosed underlying COPD with acute exacerbation. Oxygenation improved from yesterday. Continue supplemental oxygen to keep saturation above 90%. Given the patient's risk factors cardiac causes and also be concerned, we will check an echocardiogram and possibly stress test. Qualifiers: Respiratory failure complication: hypoxia Qualified Code(s): J96.01 - Acute respiratory failure with hypoxia (2) Sepsis Current Visit: Yes Status: Resolved Assessment and plan: Patient presented with a heart rate greater than 90 and temperature 102.2 Fahrenheit with evidence of pneumonia. Resolved at this time. Continue antibiotic treatment. Cultures are pending. Qualifiers: Sepsis type: sepsis due to unspecified organism Qualified Code(s): A41.9 - Sepsis, unspecified organism (3) Community acquired pneumonia Current Visit: Yes Status: Acute Assessment and plan: Respiratory status appears improved. Transition from Levaquin to azithromycin. (4) Bronchiectasis Current Visit: Yes Status: Suspected Assessment and plan: Appears unlikely per CT scan reviewed with the associate engineer. Patient would likely benefit from a outpatient pulmonology follow-up as well as formal PFTs.. Qualifiers: Bronchiectasis type: with acute exacerbation Qualified Code(s): J47.1 - Bronchiectasis with (acute) exacerbation (5) COPD with acute exacerbation Current Visit: Yes Status: Suspected Assessment and plan: Patient has not been formally diagnosed but given his smoking history patient likely has underlying COPD and is in acute exacerbation with shortness of breath , cough, increased sputum production. Continue with antibiotics as discussed above, bronchodilators, transitioned to by mouth steroids. Patient should have formal PFTs as an outpatient. Appreciate pulmonology recommendations. (6) Nicotine dependence Current Visit: Yes Status: Chronic Assessment and plan: Patient has [id number] history. Discussed smoking cessation with the patient , he does not appear interested at this time. We will continue to discuss. Qualifiers: Nicotine product type: cigarettes Substance use status: unspecified nicotine-induced disorder Qualified Code(s): F17.219 - Nicotine dependence, cigarettes, with unspecified nicotine-induced disorders (7) DVT prophylaxis Current Visit: Yes Status: Acute Assessment and plan: Lovenox 40 mg subcutaneous daily. - Subjective Interval history: Patient seen and examined at bedside. Patient states he feels better than yesterday. He states he is still coughing but it is minimally productive. He reports pain in his chest and abdomen when coughing. He denies any fever, chills. - Constitutional Vitals: Temp Pulse Resp BP Pulse Ox 97.7 F 83 18 152/85 92 01/10/17 07:10 01/10/17 07:10 01/10/17 07:10 01/10/17 07:10 01/10/17 07:10 General appearance: Present: A&O X 3, no acute distress, obese - Respiratory Respiratory exam: Present: wheezes (Scattered). Absent: respiratory distress, rhonchi, tachypnea - Cardiovascular Cardiovascular exam: Present: RRR. Absent: gallop, rubs, systolic murmur - GI/Abdominal GI/Abdominal exam: Present: normal bowel sounds, soft. Absent: distended, tenderness - Extremities Exam Extremities exam: Present: pedal edema (Trace) - Neurological Exam Neurological exam: Present: alert, CN II-XII intact, oriented X3, no focal deficits Internal Medicine: Result - Labs CBC & Chem 7: 01/10/17 08:18 01/10/17 08:18 Labs: Short CBC 01/10/17 Range/Units 08:18 WBC 16.5 H D (4.3-11.1) K/mcL Hgb 16.9 (12.9-16.9) g/dL Hct 54.6 H (37.5-50.1) % Plt Count 203 (140-400) K/mcL Neutrophils # 14.6 H (1.6-8.9) K/mcL BMP 01/10/17 08:18 Sodium 141 Potassium 4.7 H Chloride 101 Carbon Dioxide 32 H BUN 11 Creatinine 0.81 Glucose 194 H Calcium 9.0 Consult Discharge Plan - Plan Referrals: Sherman Mccall Jr, MD [Primary Care Provider] - <Guille Gee - Last Filed: 01/10/17 16:36> Date of Encounter: 01/10/17 - Constitutional Vitals: Temp Pulse Resp BP Pulse Ox 98.1 F 96 18 163/90 94 01/10/17 15:37 01/10/17 15:37 01/10/17 15:37 01/10/17 15:37 01/10/17 15:37 Internal Medicine: Result - Labs CBC & Chem 7: 01/10/17 08:18 01/10/17 08:18 Labs: Short CBC 01/10/17 Range/Units 08:18 WBC 16.5 H D (4.3-11.1) K/mcL Hgb 16.9 (12.9-16.9) g/dL Hct 54.6 H (37.5-50.1) % Plt Count 203 (140-400) K/mcL Neutrophils # 14.6 H (1.6-8.9) K/mcL BMP 01/10/17 08:18 Sodium 141 Potassium 4.7 H Chloride 101 Carbon Dioxide 32 H BUN 11 Creatinine 0.81 Glucose 194 H Calcium 9.0 - Attending Attestation I examined this patient and my medical decision-making was reviewed with the [employer]ER/PA/Advanced Practice Nurse/Resident Physician. I agree with the documented findings, disposition and treatment plan as described except to the extent set forth below. ECHO and NST pulmonary input appreciated.
[2017-01-10] MEDS: FLUoxetine 20 MG CAPSULE PO SCH (10:19)
[2017-01-10] MEDS: Lactobacillus 1 EACH CAP.SPRINK PO SCH ×2 (10:19→20:50)
[2017-01-10] MEDS: Sennosides/Docusate Sodium TABLET PO SCH ×2 (12:53→20:49)
[2017-01-10] MEDS: *HR* HYDROcodone/Acet 5/325 mg TABLET PO PRN ×2 (12:57→21:09)
--- NOTE | 2017-01-10 13:49 | Pulmonology Progress Note ---
Date of Encounter: 01/10/17 Time of Encounter: 11:20 Assessment and Plan (1) Dyspnea Current Visit: No Status: Acute Etiology remains unclear. Given his history of prolonged tobacco abuse, suspect undiagnosed COPD with possible overlap syndrome. Occupational exposure is possible given his work history, but no radiographic findings to support this. Patient is showing clinical improvement with bronchodilators, systemic corticosteroids, and azithromycin. Minimal oxygen requirement while at rest. Patient will need ambulatory desaturation study prior to discharge. The patient displays any with her hypoxemia, he will require outpatient supplemental oxygen pending follow-up with pulmonary. Otherwise, no new recommendations today. Qualifiers: Dyspnea type: shortness of breath Qualified Code(s): R06.02 - Shortness of breath (2) Nicotine dependence Current Visit: Yes Status: Chronic Readdressed benefits of tobacco cessation the patient today. Continue to encourage cessation. Qualifiers: Nicotine product type: cigarettes Substance use status: unspecified nicotine-induced disorder Qualified Code(s): F17.219 - Nicotine dependence, cigarettes, with unspecified nicotine-induced disorders Subjective Principal diagnosis: Dyspnea Interval history: Consult to defer a 51-year-old male admitted for shortness of breath most likely due to undiagnosed COPD versus asthma versus occupational exposure. Initially treated with broad-spectrum antibiotics for presumed pneumonia. Antibiotics have been tailored to azithromycin monotherapy for coverage for possible COPD exacerbation. Steroids have been decreased from Solu-Medrol every 6 hours prednisone 50 mg daily. Patient is tolerated well. Today patient reports some improvement in his air movement per notes slight increase in cough and persistent audible wheezing. Patient has been able to ambulate has required continuous supplemental oxygen during ambulation. Otherwise, patient has no new complaints this morning. No acute events overnight. Objective PUL Vital signs: Last Vital Signs Temp 97.8 F 01/10/17 12:37 Pulse 96 01/10/17 12:37 Resp 18 01/10/17 12:37 BP 164/79 01/10/17 12:37 Pulse Ox 95 01/10/17 12:37 General appearance: no acute distress Eyes: nonicteric ENT: oropharynx dry Neck: supple Effort: normal Auscultation: bilateral: wheezes Cardiovascular: regular rate and rhythm Gastrointestinal: normoactive bowel sounds, non-tender, non-distended Integumentary: normal Extremities: no cyanosis, no clubbing Musculoskeletal: no deformities normal mental status mood appropriate Results - Laboratory Findings CBC and BMP: 06/20/17 08:18 01/10/17 08:18 Abnormal lab findings: Abnormal lab results WBC 16.5 K/mcL (4.3-11.1) H D 01/10/17 08:18 RBC 5.94 M/mcL (4.19-5.50) H 01/10/17 08:18 Hct 54.6 % (37.5-50.1) H 01/10/17 08:18 MCHC 31.0 g/dL (31.6-35.5) L 01/10/17 08:18 Neutrophils # 14.6 K/mcL (1.6-8.9) H 01/10/17 08:18 Potassium 4.7 mEq/L (3.5-4.5) H 01/10/17 08:18 Carbon Dioxide 32 mEq/L (19-29) H 01/10/17 08:18 Glucose 194 mg/dL (70-99) H 01/10/17 08:18 POC Glucose 98 (58-89) H 01/08/17 21:18 C-Reactive Protein 31 mg/L (Less than 5) H 01/09/17 03:41 Ur Specific [place] 1.026 (1.010-1.025) H 01/08/17 19:43 - Clinical Findings Intake & Output: Intake & Output 01/09/17 01/10/17 01/10/17 23:59 07:59 15:59 Intake Total 630 / 630 490 / 490 Balance 630 / 630 490 / 490 Weight 169.6 kg Consult Discharge Plan - Plan Referrals: Sherman Mccall Jr, MD [Primary Care Provider] -
[2017-01-10] MEDS: Gabapentin 300 MG CAPSULE PO SCH (20:50)
[2017-01-11] MEDS: Ipratropium/Albuterol Neb 3 ML IH SCH ×4 (04:04→22:56)
[2017-01-11] MEDS: *HR* Enoxaparin 40 MG/0.4 ML SYRINGE SQ SCH (04:48)
[2017-01-11] MEDS: Benzonatate 100 MG CAPSULE PO PRN (04:48)
[2017-01-11] MEDS: *HR* HYDROmorphone (PF) 1 MG/ML SYRINGE IVP PRN ×2 (04:49→11:47)
[2017-01-11] MEDS ORDERED: Regadenoson 0.4 MG/5 ML SYRINGE IVP ONE (06:27)
[2017-01-11 07:49] LABS: BUN/Creatinine Ratio 13 (6-26); Blood Urea Nitrogen 11 mg/dL (8-26); Calcium 8.9 mg/dL (8.6-10.8); Carbon Dioxide 34 mEq/L (19-29); Chloride 100 mEq/L (98-109); Glucose 96 mg/dL (70-99); Osmolality,Calculated 291 (280-300); Potassium 4.2 mEq/L (3.5-4.5); Sodium 141 mEq/L (136-145); eGFR For African Americans > 60 (> 60); eGFR For Non-African Americans > 60 (> 60)
[2017-01-11 08:19] LABS: Basophils % 0.2 %; Eosinophils % 0.1 %; Hematocrit 53.4 % (37.5-50.1); Hemoglobin 16.6 g/dL (12.9-16.9); Immature Granulocytes % 0.6 % (0-4); Lymphocytes # 1.9 K/mcL (0.6-4.6); Lymphocytes % 10.9 %; Mean Corpuscular HGB Conc 31.1 g/dL (31.6-35.5); Mean Corpuscular Hemoglobin 28.6 pg (28.0-33.3); Mean Corpuscular Volume 91.9 fL (83.0-100.0); Mean Platelet Volume 10.8 fL (9.4-12.4); Monocytes # 1.7 K/mcL (0.0-1.3); Monocytes % 9.6 %; Neutrophils # 13.8 K/mcL (1.6-8.9); Platelet Count 219 K/mcL (140-400); Red Blood Count 5.81 M/mcL (4.19-5.50); Segmented Neutrophils % 78.6 %
[2017-01-11] MEDS ORDERED: Azithromycin 250 MG in D5% in Water 250 ML IVPB SCH (09:00)
[2017-01-11] MEDS: Sennosides/Docusate Sodium TABLET PO SCH (09:26)
[2017-01-11] MEDS: Lactobacillus 1 EACH CAP.SPRINK PO SCH ×2 (09:26→22:03)
[2017-01-11] MEDS: FLUoxetine 20 MG CAPSULE PO SCH (09:26)
[2017-01-11] MEDS ORDERED: Furosemide 40 MG/4 ML VIAL IVP ONE (09:30)
[2017-01-11] MEDS ORDERED: Sennosides/Docusate Sodium TABLET PO PRN (09:30)
--- NOTE | 2017-01-11 09:50 | Internal Med Progress Note ---
<HawaShlomo matos - Last Filed: 01/11/17 09:47> Date of Encounter: 01/11/17 Time of Encounter: 09:47 - Assessment and plan (1) Acute respiratory failure Current Visit: Yes Status: Acute Assessment and plan: Likely multifactorial with undiagnosed underlying COPD with acute exacerbation as well as diastolic HF contributing. Oxygenation stable. Continue supplemental oxygen to keep saturation above 90%. Qualifiers: Respiratory failure complication: hypoxia Qualified Code(s): J96.01 - Acute respiratory failure with hypoxia (2) Sepsis Current Visit: Yes Status: Resolved Assessment and plan: Patient presented with a heart rate greater than 90 and temperature 102.2 Fahrenheit with evidence of pneumonia. Resolved at this time. Continue antibiotic treatment. Cultures are negative. Qualifiers: Sepsis type: sepsis due to unspecified organism Qualified Code(s): A41.9 - Sepsis, unspecified organism (3) (HFpEF) heart failure with preserved ejection fraction Current Visit: Yes Status: Acute Assessment and plan: Echo shows normal EF with mild diastolic dysfunction. CXR shows pulm vacsular congestion. Will try trial of diureses. Monitor kidney function and respiratory status. (4) Community acquired pneumonia Current Visit: Yes Status: Acute Assessment and plan: Respiratory status appears improved. Transition from Levaquin to azithromycin. (5) Bronchiectasis Current Visit: Yes Status: Suspected Assessment and plan: Appears unlikely per CT scan reviewed with the tissue packer. Patient would likely benefit from a outpatient pulmonology follow-up as well as formal PFTs.. Qualifiers: Bronchiectasis type: with acute exacerbation Qualified Code(s): J47.1 - Bronchiectasis with (acute) exacerbation (6) COPD with acute exacerbation Current Visit: Yes Status: Suspected Assessment and plan: Patient has not been formally diagnosed but given his smoking history patient likely has underlying COPD and is in acute exacerbation with shortness of breath , cough, increased sputum production. Continue with antibiotics as discussed above, bronchodilators, transitioned to by mouth steroids. Patient should have formal PFTs as an outpatient. Appreciate pulmonology recommendations. (7) Nicotine dependence Current Visit: Yes Status: Chronic Assessment and plan: Patient has 65-[id number]-uter history. Discussed smoking cessation with the patient , he does not appear interested at this time. We will continue to discuss. Qualifiers: Nicotine product type: cigarettes Substance use status: unspecified nicotine-induced disorder Qualified Code(s): F17.219 - Nicotine dependence, cigarettes, with unspecified nicotine-induced disorders (8) DVT prophylaxis Current Visit: Yes Status: Acute Assessment and plan: Lovenox 40 mg subcutaneous daily. - Subjective Interval history: Patient seen and examined at bedside. Patient states his breathing feels worse than yesterday. He states he is still coughing but it is minimally productive. He is unable to lie flat. He denies any fever, chills. - Constitutional Vitals: Temp Pulse Resp BP Pulse Ox 98.4 F 96 19 149/80 97 01/11/17 03:04 01/11/17 07:00 01/11/17 07:00 01/11/17 07:00 01/11/17 07:49 General appearance: Present: A&O X 3, no acute distress, obese - Respiratory Respiratory exam: Present: rales (bibasilar), wheezes (scatterred), tachypnea. Absent: rhonchi - Cardiovascular Cardiovascular exam: Present: RRR. Absent: gallop, rubs, systolic murmur - GI/Abdominal GI/Abdominal exam: Present: normal bowel sounds, soft. Absent: distended, tenderness - Extremities Exam Extremities exam: Present: warm. Absent: pedal edema, tenderness - Neurological Exam Neurological exam: Present: alert, CN II-XII intact, oriented X3, no focal deficits Internal Medicine: Result - Labs CBC & Chem 7: 01/11/17 07:13 01/11/17 07:13 Labs: Short CBC 01/11/17 Range/Units 07:13 WBC 17.5 H (4.3-11.1) K/mcL Hgb 16.6 (12.9-16.9) g/dL Hct 53.4 H (37.5-50.1) % Plt Count 219 (140-400) K/mcL Neutrophils # 13.8 H (1.6-8.9) K/mcL BMP 01/11/17 07:13 Sodium 141 Potassium 4.2 Chloride 100 Carbon Dioxide 34 H BUN 11 Creatinine 0.83 Glucose 96 Calcium 8.9 - Impressions Impressions Chest X-Ray 01/11/17 09:05 IMPRESSION: Unchanged cardiomegaly and pulmonary vascular congestion. D/ / Donnie Burris MD / Donnie Burris MD Interpreting Provider: Donnie Burris MD Consult Discharge Plan - Plan Referrals: Sherman Mccall Jr, MD [Primary Care Provider] - <MarlenGuille ferro P - Last Filed: 01/11/17 18:07> Date of Encounter: 01/11/17 - Constitutional Vitals: Temp Pulse Resp BP Pulse Ox 98.4 F 84 20 145/86 94 01/11/17 03:04 01/11/17 15:00 01/11/17 16:33 01/11/17 15:00 01/11/17 16:33 Internal Medicine: Result - Labs CBC & Chem 7: 01/11/17 07:13 01/11/17 07:13 Labs: Short CBC 01/11/17 Range/Units 07:13 WBC 17.5 H (4.3-11.1) K/mcL Hgb 16.6 (12.9-16.9) g/dL Hct 53.4 H (37.5-50.1) % Plt Count 219 (140-400) K/mcL Neutrophils # 13.8 H (1.6-8.9) K/mcL BMP 01/11/17 07:13 Sodium 141 Potassium 4.2 Chloride 100 Carbon Dioxide 34 H BUN 11 Creatinine 0.83 Glucose 96 Calcium 8.9 - Impressions Impressions Chest X-Ray 01/11/17 09:05 IMPRESSION: Unchanged cardiomegaly and pulmonary vascular congestion. D/ / Donnie Burris MD / Donnie Burris MD Interpreting Provider: Donnie Burris MD - Attending Attestation I examined this patient and my medical decision-making was reviewed with the CHIEF WELLNESS OFFICER/PA/Advanced Practice Nurse/Resident Physician. I agree with the documented findings, disposition and treatment plan as described except to the extent set forth below. pulmonary input appreciated. abx steroids Lasix and will try to get NST in couple of days
[2017-01-11] MEDS: levoFLOXacin 750 MG TABLET PO SCH (11:39)
[2017-01-11] MEDS: Budesonide/Formoterol 160/4.5 MDI IH SCH ×2 (11:39→22:56)
[2017-01-11] MEDS: predniSONE 20 MG TABLET PO SCH (11:49)
--- NOTE | 2017-01-11 13:26 | Pulmonology Progress Note ---
Date of Encounter: 01/11/17 Time of Encounter: 11:10 Assessment and Plan (1) Dyspnea Current Visit: No Status: Acute Patient's lack of clinical improvement is concerning. If his presentation would do to asthma or COPD exacerbation, with expected more improvement by this point. In light of his significant elevation leukocytosis, reasonable to consider broadening antibiotic coverage again given his initial diagnosis of pneumonia. Additionally, as he initially improved with high-dose IV corticosteroids a trial of a higher dose of prednisone, up to 1 mg/kg, for a short course could possibly help. At this point must also consider alternative diagnoses. 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 I would also be reasonable, despite current corticosteroid therapy, to obtain serologic screening markers for inflammatory diseases. Follow these are likely to be suppressed in the presence of systemic corticosteroids elevation in ESR or CRP or abnormalities in MARIA ELENA, ANCA, or rheumatoid factor could be suggestive of undiagnosed underlying disease. Qualifiers: Dyspnea type: shortness of breath Qualified Code(s): R06.02 - Shortness of breath (2) Nicotine dependence Current Visit: Yes Status: Chronic Readdressed benefits of tobacco cessation the patient today. Continue to encourage cessation. Qualifiers: Nicotine product type: cigarettes Substance use status: unspecified nicotine-induced disorder Qualified Code(s): F17.219 - Nicotine dependence, cigarettes, with unspecified nicotine-induced disorders Subjective Principal diagnosis: Dyspnea Interval history: Consult to defer a 51-year-old male admitted for shortness of breath which was suspected to be due to undiagnosed COPD versus asthma. Patient had previously been treated with antibiotics for community-acquired pneumonia. Initially showed improvement with bronchodilators, systemic steroids, and antibiotics. Corticosteroids were reduced in dose and transitioned to oral administration and antibiotics were tailored to azithromycin monotherapy to focus more on COPD exacerbation infectious pneumonia. This morning patient reports no improvement in symptoms and continued, persistent, nonproductive cough. Patient expresses some for frustration with his lack of improvement but denies progression of symptoms. Objective PUL Vital signs: Last Vital Signs Temp 98.4 F 01/11/17 03:04 Pulse 96 01/11/17 07:00 Resp 18 01/11/17 11:39 BP 149/80 01/11/17 07:00 Pulse Ox 95 01/11/17 11:39 General appearance: appears uncomfortable Eyes: nonicteric Neck: supple Auscultation: bilateral: wheezes Cardiovascular: regular rate and rhythm Gastrointestinal: normoactive bowel sounds, soft, non-tender Extremities: no cyanosis, no clubbing normal mental status mood appropriate, affect normal Results - Laboratory Findings CBC and BMP: 01/11/17 07:13 01/11/17 07:13 Abnormal lab findings: Abnormal lab results WBC 17.5 K/mcL (4.3-11.1) H 01/11/17 07:13 RBC 5.81 M/mcL (4.19-5.50) H 01/11/17 07:13 Hct 53.4 % (37.5-50.1) H 01/11/17 07:13 MCHC 31.1 g/dL (31.6-35.5) L 01/11/17 07:13 Neutrophils # 13.8 K/mcL (1.6-8.9) H 01/11/17 07:13 Monocytes # 1.7 K/mcL (0.0-1.3) H 01/11/17 07:13 Carbon Dioxide 34 mEq/L (19-29) H 01/11/17 07:13 POC Glucose 98 (58-89) H 01/08/17 21:18 C-Reactive Protein 31 mg/L (Less than 5) H 01/09/17 03:41 Ur Specific [place] 1.026 (1.010-1.025) H 01/08/17 19:43 - Clinical Findings Intake & Output: Intake & Output 01/10/17 01/11/17 01/11/17 23:59 07:59 15:59 Intake Total 1779 0 / 0 Output Total 0 / 0 450 / 450 Balance 178 / 1780 -450 / -450 Weight 167.45 kg Consult Discharge Plan - Plan Referrals: Sherman Mccall Jr, MD [Primary Care Provider] -
[2017-01-11] MEDS: *HR* HYDROcodone/Acet 5/325 mg TABLET PO PRN (13:36)
[2017-01-11] MEDS ORDERED: Furosemide 20 MG/2 ML VIAL IVP SCH (17:00)
[2017-01-11] MEDS: Gabapentin 300 MG CAPSULE PO SCH (22:03)
[2017-01-12] MEDS: Ipratropium/Albuterol Neb 3 ML IH SCH ×4 (04:21→22:56)
[2017-01-12 05:30] LABS: Basophils % 0.3 %; Eosinophils % 0.1 %; Hemoglobin 16.1 g/dL (12.9-16.9); Immature Granulocytes % 0.8 % (0-4); Lymphocytes # 1.7 K/mcL (0.6-4.6); Lymphocytes % 18.9 %; Mean Corpuscular HGB Conc 31.6 g/dL (31.6-35.5); Mean Corpuscular Hemoglobin 28.2 pg (28.0-33.3); Mean Corpuscular Volume 89.3 fL (83.0-100.0); Mean Platelet Volume 10.4 fL (9.4-12.4); Monocytes # 1.2 K/mcL (0.0-1.3); Monocytes % 13.6 %; Neutrophils # 6.1 K/mcL (1.6-8.9); Platelet Count 195 K/mcL (140-400); Red Blood Count 5.71 M/mcL (4.19-5.50); Red Cell Distribution Width 13.8 % (11.5-14.5); Segmented Neutrophils % 66.3 %
[2017-01-12 05:45] LABS: BUN/Creatinine Ratio 15 (6-26); Blood Urea Nitrogen 11 mg/dL (8-26); Carbon Dioxide 36 mEq/L (19-29); Chloride 98 mEq/L (98-109); Glucose 115 mg/dL (70-99); Magnesium 2.1 mg/dL (1.6-2.6); Osmolality,Calculated 292 (280-300); Sodium 141 mEq/L (136-145); eGFR For African Americans > 60 (> 60); eGFR For Non-African Americans > 60 (> 60)
[2017-01-12] MEDS: *HR* Enoxaparin 40 MG/0.4 ML SYRINGE SQ SCH (06:00)
[2017-01-12] MEDS ORDERED: Regadenoson 0.4 MG/5 ML SYRINGE IVP ONE (06:03)
[2017-01-12] MEDS: FLUoxetine 20 MG CAPSULE PO SCH (09:43)
[2017-01-12] MEDS: levoFLOXacin 750 MG TABLET PO SCH (09:43)
[2017-01-12] MEDS: Lactobacillus 1 EACH CAP.SPRINK PO SCH ×2 (09:43→21:06)
[2017-01-12] MEDS: predniSONE 20 MG TABLET PO SCH (09:44)
[2017-01-12] MEDS ORDERED: Furosemide 40 MG/4 ML VIAL IVP ONE (10:49)
[2017-01-12] MEDS: Budesonide/Formoterol 160/4.5 MDI IH SCH ×2 (11:18→22:57)
--- NOTE | 2017-01-12 13:55 | Internal Med Progress Note ---
<Shlomo Smith - Last Filed: 01/12/17 13:53> Date of Encounter: 01/12/17 Time of Encounter: 13:53 - Assessment and plan (1) Acute respiratory failure Current Visit: Yes Status: Acute Assessment and plan: Likely multifactorial with undiagnosed underlying COPD with acute exacerbation as well as diastolic HF contributing. Oxygenation improved. Continue supplemental oxygen to keep saturation above 90%. Qualifiers: Respiratory failure complication: hypoxia Qualified Code(s): J96.01 - Acute respiratory failure with hypoxia (2) Sepsis Current Visit: Yes Status: Resolved Assessment and plan: Patient presented with a heart rate greater than 90 and temperature 102.2 Fahrenheit with evidence of pneumonia. Resolved at this time. Continue antibiotic treatment. Cultures are negative. Qualifiers: Sepsis type: sepsis due to unspecified organism Qualified Code(s): A41.9 - Sepsis, unspecified organism (3) (HFpEF) heart failure with preserved ejection fraction Current Visit: Yes Status: Acute Assessment and plan: Echo shows normal EF with mild diastolic dysfunction. CXR shows pulm vacsular congestion. Patient appears improved with diuresis, will increase diuresis. Monitor kidney function and respiratory status. (4) Community acquired pneumonia Current Visit: Yes Status: Acute Assessment and plan: Respiratory status appears improved. Continue Levaquin. (5) COPD with acute exacerbation Current Visit: Yes Status: Suspected Assessment and plan: Patient has not been formally diagnosed but given his smoking history patient likely has underlying COPD and is in acute exacerbation with shortness of breath , cough, increased sputum production. 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 Continue with antibiotics as discussed above, bronchodilators, transitioned to by mouth steroids. Patient will likely require a taper of steroids at discharge. Patient should have formal PFTs as an outpatient. Appreciate pulmonology recommendations. (6) Nicotine dependence Current Visit: Yes Status: Chronic Assessment and plan: Patient has [id number] history. Discussed smoking cessation with the patient , he does not appear interested at this time. We will continue to discuss. Qualifiers: Nicotine product type: cigarettes Substance use status: unspecified nicotine-induced disorder Qualified Code(s): F17.219 - Nicotine dependence, cigarettes, with unspecified nicotine-induced disorders (7) DVT prophylaxis Current Visit: Yes Status: Acute Assessment and plan: Lovenox 40 mg subcutaneous daily. - Subjective Interval history: Patient seen and examined at bedside. Patient states his breathing feels slightly better than yesterday. He states he is still coughing but it is minimally productive. He is still unable to lie flat. He denies any fever, chills, chest pain. - Constitutional Vitals: Temp Pulse Resp BP Pulse Ox 97.8 F 96 18 138/81 96 01/12/17 11:19 01/12/17 11:19 01/12/17 11:19 01/12/17 11:19 01/12/17 11:19 General appearance: Present: A&O X 3, no acute distress, obese - Respiratory Respiratory exam: Present: rales (Mild bibasilar), wheezes (Scattered, improved) . Absent: respiratory distress, rhonchi, tachypnea - Cardiovascular Cardiovascular exam: Present: RRR. Absent: gallop, rubs, systolic murmur - GI/Abdominal GI/Abdominal exam: Present: normal bowel sounds, soft. Absent: distended, tenderness - Extremities Exam Extremities exam: Present: warm. Absent: pedal edema, tenderness Internal Medicine: Result - Labs CBC & Chem 7: 01/12/17 04:45 01/12/17 04:45 Labs: Short CBC 01/12/17 Range/Units 04:45 WBC 9.1 (4.3-11.1) K/mcL Hgb 16.1 (12.9-16.9) g/dL Hct 51.0 H (37.5-50.1) % Plt Count 195 (140-400) K/mcL Neutrophils # 6.1 (1.6-8.9) K/mcL BMP 01/12/17 04:45 Sodium 141 Potassium 4.0 Chloride 98 Carbon Dioxide 36 H BUN 11 Creatinine 0.73 Glucose 115 H Calcium 9.0 Consult Discharge Plan - Plan Referrals: Sherman Mccall Jr, MD [Primary Care Provider] - <Guille Gee - Last Filed: 01/12/17 14:56> Date of Encounter: 01/12/17 - Constitutional Vitals: Temp Pulse Resp BP Pulse Ox 97.8 F 96 18 138/81 96 01/12/17 11:19 01/12/17 11:19 01/12/17 11:19 01/12/17 11:19 01/12/17 11:19 Internal Medicine: Result - Labs CBC & Chem 7: 01/12/17 04:45 01/12/17 04:45 Labs: Short CBC 01/12/17 Range/Units 04:45 WBC 9.1 (4.3-11.1) K/mcL Hgb 16.1 (12.9-16.9) g/dL Hct 51.0 H (37.5-50.1) % Plt Count 195 (140-400) K/mcL Neutrophils # 6.1 (1.6-8.9) K/mcL BMP 01/12/17 04:45 Sodium 141 Potassium 4.0 Chloride 98 Carbon Dioxide 36 H BUN 11 Creatinine 0.73 Glucose 115 H Calcium 9.0 - Attending Attestation I examined this patient and my medical decision-making was reviewed with the AIRCRAFT LAYOUT WORKER/PA/Advanced Practice Nurse/Resident Physician. I agree with the documented findings, disposition and treatment plan as described except to the extent set forth below. cont diuresis NST as outpatient cardio/Pulm follow up as outpatient home soon
--- NOTE | 2017-01-12 15:08 | Pulmonology Progress Note ---
Date of Encounter: 01/12/17 Time of Encounter: 11:00 Assessment and Plan (1) Dyspnea Current Visit: No Status: Acute Patient is showing some clinical improvement since yesterday. Degree of wheezing is decreased on serial exams. Leukocytosis reduced significantly since yesterday. Seems unlikely this is due to change antibiotic regimen yesterday. Would not expect this degree of change from a bacteriostatic antibiotic less than 24 hours. It is noteworthy that patient's nonspecific inflammatory markers are elevated, particularly given his ongoing chronic steroid use. This could be related to pneumonia but at this point those be expected to be trending toward normal. Given his reported history of frequent sinusitis, would consider sinopulmonary disease which could be technical sales representative of vasculitic disease. Lack of eosinophils would argue against this but again these could be suppressed by ongoing corticosteroid use. Rheumatoid factor is negative but ANCA and MARIA ELENA screening are still pending. Recommend continued prednisone with plan for prolonged taper following discharge, completion of protocol course of empiric antibiotics, and continued inhaled bronchodilator treatments with provision of ICS/LABA and when necessary albuterol inhalers for outpatient use. Recommend consultation to pulmonary services for continued evaluation after discharge. Qualifiers: Dyspnea type: shortness of breath Qualified Code(s): R06.02 - Shortness of breath (2) Nicotine dependence Current Visit: Yes Status: Chronic Readdressed benefits of tobacco cessation the patient today. Continue to encourage cessation. Qualifiers: Nicotine product type: cigarettes Substance use status: unspecified nicotine-induced disorder Qualified Code(s): F17.219 - Nicotine dependence, cigarettes, with unspecified nicotine-induced disorders Subjective Principal diagnosis: Dyspnea Interval history: Consult to defer a 51-year-old male admitted for shortness of breath which was suspected to be due to undiagnosed COPD versus asthma. Patient had previously been treated with antibiotics for community-acquired pneumonia. Initially showed improvement with bronchodilators, systemic steroids, and antibiotics. Corticosteroids were reduced in dose and transitioned to oral administration and antibiotics were tailored to azithromycin monotherapy to focus more on COPD exacerbation infectious pneumonia. On the subsequent day, due to some worsening in patient's presentation Levaquin was reinitiated in favor of azithromycin. This morning patient sitting upright in his bed receiving nebulizer treatment. Reports modest improvement in symptoms since yesterday. Objective PUL Vital signs: Last Vital Signs Temp 97.8 F 01/12/17 11:19 Pulse 96 01/12/17 11:19 Resp 18 01/12/17 11:19 BP 138/81 01/12/17 11:19 Pulse Ox 96 01/12/17 11:19 General appearance: no acute distress Effort: mildly labored Auscultation: bilateral: wheezes Cardiovascular: regular rate and rhythm Gastrointestinal: soft, non-tender Extremities: no cyanosis, no clubbing Musculoskeletal: no deformities normal mental status, non-focal exam mood appropriate Results - Laboratory Findings CBC and BMP: 01/12/17 04:45 01/12/17 04:45 Abnormal lab findings: Abnormal lab results RBC 5.71 M/mcL (4.19-5.50) H 01/12/17 04:45 Hct 51.0 % (37.5-50.1) H 01/12/17 04:45 ESR 27 mm/hr (0-10) H 01/11/17 13:58 Carbon Dioxide 36 mEq/L (19-29) H 01/12/17 04:45 Glucose 115 mg/dL (70-99) H 01/12/17 04:45 POC Glucose 98 (58-89) H 01/08/17 21:18 C-Reactive Protein 11 mg/L (Less than 5) H 01/11/17 13:58 Ur Specific [place] 1.026 (1.010-1.025) H 01/08/17 19:43 - Clinical Findings Intake & Output: Intake & Output 01/11/17 01/12/17 01/12/17 23:59 07:59 15:59 Intake Total 200 / 200 0 / 0 480 / 480 Balance 200 / 200 0 / 0 480 / 480 Weight 166.5 kg Consult Discharge Plan - Plan Referrals: Sherman Mccall Jr, MD [Primary Care Provider] -
[2017-01-12] MEDS: Furosemide 40 MG/4 ML VIAL IVP SCH (16:23)
[2017-01-12] MEDS: Gabapentin 300 MG CAPSULE PO SCH (21:06)
[2017-01-12] MEDS: *HR* HYDROmorphone (PF) 1 MG/ML SYRINGE IVP PRN (21:06)
[2017-01-12] MEDS: *HR* HYDROcodone/Acet 5/325 mg TABLET PO PRN (22:36)
[2017-01-13] MEDS: Ipratropium/Albuterol Neb 3 ML IH SCH ×4 (04:23→22:23)
[2017-01-13 06:41] LABS: Basophils # 0.1 K/mcL (0.0-0.2); Basophils % 0.6 %; Eosinophils # 0.1 K/mcL (0.0-0.6); Eosinophils % 0.7 %; Hematocrit 54.7 % (37.5-50.1); Hemoglobin 17.3 g/dL (12.9-16.9); Immature Granulocytes % 1.3 % (0-4); Lymphocytes # 2.3 K/mcL (0.6-4.6); Lymphocytes % 22.4 %; Mean Corpuscular HGB Conc 31.6 g/dL (31.6-35.5); Mean Corpuscular Hemoglobin 28.2 pg (28.0-33.3); Mean Corpuscular Volume 89.1 fL (83.0-100.0); Mean Platelet Volume 10.2 fL (9.4-12.4); Monocytes # 1.4 K/mcL (0.0-1.3); Monocytes % 14.1 %; Neutrophils # 6.2 K/mcL (1.6-8.9); Platelet Count 225 K/mcL (140-400); Red Blood Count 6.14 M/mcL (4.19-5.50); Red Cell Distribution Width 13.8 % (11.5-14.5); Segmented Neutrophils % 60.9 %
[2017-01-13 06:56] LABS: BUN/Creatinine Ratio 18 (6-26); Blood Urea Nitrogen 15 mg/dL (8-26); Calcium 9.4 mg/dL (8.6-10.8); Carbon Dioxide 34 mEq/L (19-29); Chloride 95 mEq/L (98-109); Glucose 114 mg/dL (70-99); Osmolality,Calculated 292 (280-300); Sodium 140 mEq/L (136-145); eGFR For African Americans > 60 (> 60); eGFR For Non-African Americans > 60 (> 60)
[2017-01-13 07:04] LABS: Platelet Estimate Normal (Normal); Reactive Lymphocytes Present (Not Present)
[2017-01-13] MEDS: *HR* Enoxaparin 40 MG/0.4 ML SYRINGE SQ SCH (08:45)
[2017-01-13] MEDS: Furosemide 40 MG/4 ML VIAL IVP SCH ×2 (08:45→15:57)
[2017-01-13] MEDS: levoFLOXacin 750 MG TABLET PO SCH (08:46)
[2017-01-13] MEDS: Lactobacillus 1 EACH CAP.SPRINK PO SCH ×2 (08:46→22:08)
[2017-01-13] MEDS: FLUoxetine 20 MG CAPSULE PO SCH (08:46)
[2017-01-13] MEDS: predniSONE 20 MG TABLET PO SCH (08:46)
--- NOTE | 2017-01-13 11:06 | Internal Med Progress Note ---
Addendum entered and electronically signed by Shlomo Smith, 01/13/17 11:13: Of note, given the patient's most recent symptoms are likely benefit from a nebulizer at home. Original Note: <Shlmoo Smith - Last Filed: 01/13/17 11:04> Date of Encounter: 01/13/17 Time of Encounter: 11:04 - Assessment and plan (1) Acute respiratory failure Current Visit: Yes Status: Acute Assessment and plan: Likely multifactorial with undiagnosed underlying COPD with acute exacerbation as well as diastolic HF contributing. Oxygenation improved, no longer requiring supplemental oxygen. We will performed 6 minute walk test prior to discharge to evaluate for home O2. Qualifiers: Respiratory failure complication: hypoxia Qualified Code(s): J96.01 - Acute respiratory failure with hypoxia (2) Sepsis Current Visit: Yes Status: Resolved Assessment and plan: Patient presented with a heart rate greater than 90 and temperature 102.2 Fahrenheit with evidence of pneumonia. Resolved at this time. Continue antibiotic treatment. Cultures are negative. Qualifiers: Sepsis type: sepsis due to unspecified organism Qualified Code(s): A41.9 - Sepsis, unspecified organism (3) (HFpEF) heart failure with preserved ejection fraction Current Visit: Yes Status: Acute Assessment and plan: Echo shows normal EF with mild diastolic dysfunction. CXR shows pulm vacsular congestion. Patient appears improved with diuresis, will increase diuresis. Monitor kidney function and respiratory status. (4) Community acquired pneumonia Current Visit: Yes Status: Acute Assessment and plan: Respiratory status appears improved. Continue Levaquin, day 5 of 10. (5) COPD with acute exacerbation Current Visit: Yes Status: Suspected Assessment and plan: Patient has not been formally diagnosed but given his smoking history patient likely has underlying COPD and is in acute exacerbation with shortness of breath , cough, increased sputum production. 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 Continue with antibiotics as discussed above, bronchodilators, transitioned to by mouth steroids. Patient will require a taper of steroids at discharge. Patient should have formal PFTs as an outpatient and will have the patient follow up with pulmonology as an outpatient. Appreciate pulmonology recommendations. (6) Nicotine dependence Current Visit: Yes Status: Chronic Assessment and plan: Patient has [id number] history. Discussed smoking cessation with the patient , he does not appear interested at this time. We will continue to discuss. Qualifiers: Nicotine product type: cigarettes Substance use status: unspecified nicotine-induced disorder Qualified Code(s): F17.219 - Nicotine dependence, cigarettes, with unspecified nicotine-induced disorders (7) DVT prophylaxis Current Visit: Yes Status: Acute Assessment and plan: Lovenox 40 mg subcutaneous daily. - Subjective Interval history: Patient seen and examined at bedside. Patient states his breathing feels slightly better than yesterday. He states he is still coughing but it is minimally productive. He denies any fever, chills, chest pain. - Constitutional Vitals: Temp Pulse Resp BP Pulse Ox 97.6 F 75 20 131/91 92 01/13/17 05:14 01/13/17 05:14 01/13/17 05:14 01/13/17 05:14 01/13/17 05:14 General appearance: Present: A&O X 3, no acute distress, obese - Respiratory Respiratory exam: Present: rales (Mild, bibasilar, improved from yesterday). Absent: respiratory distress, rhonchi, wheezes, tachypnea - Cardiovascular Cardiovascular exam: Present: RRR. Absent: gallop, rubs, systolic murmur - GI/Abdominal GI/Abdominal exam: Present: normal bowel sounds, soft. Absent: distended, tenderness - Extremities Exam Extremities exam: Present: warm. Absent: pedal edema, tenderness - Neurological Exam Neurological exam: Present: alert, CN II-XII intact, oriented X3, no focal deficits Internal Medicine: Result - Labs CBC & Chem 7: 01/13/17 04:58 01/13/17 04:58 Labs: Short CBC 01/13/17 Range/Units 04:58 WBC 10.1 (4.3-11.1) K/mcL Hgb 17.3 H (12.9-16.9) g/dL Hct 54.7 H (37.5-50.1) % Plt Count 225 (140-400) K/mcL Neutrophils # 6.2 (1.6-8.9) K/mcL BMP 01/13/17 04:58 Sodium 140 Potassium 4.0 Chloride 95 L Carbon Dioxide 34 H BUN 15 Creatinine 0.85 Glucose 114 H Calcium 9.4 Consult Discharge Plan - Plan Referrals: Sherman Mccall Jr, MD [Primary Care Provider] - 01/16/17 11:00 am Prescriptions: Albuterol Neb [Proventil Neb] 2.5 mg IH Q4HR PRN #1 b PRN Reason: difficulty breathing <Guille Gee P - Last Filed: 01/13/17 16:06> Date of Encounter: 01/13/17 - Constitutional Vitals: Temp Pulse Resp BP Pulse Ox 97.6 F 87 20 136/67 92 01/13/17 05:14 01/13/17 15:00 01/13/17 15:31 01/13/17 15:00 01/13/17 15:31 Internal Medicine: Result - Labs CBC & Chem 7: 01/13/17 04:58 01/13/17 04:58 Labs: Short CBC 01/13/17 Range/Units 04:58 WBC 10.1 (4.3-11.1) K/mcL Hgb 17.3 H (12.9-16.9) g/dL Hct 54.7 H (37.5-50.1) % Plt Count 225 (140-400) K/mcL Neutrophils # 6.2 (1.6-8.9) K/mcL BMP 01/13/17 04:58 Sodium 140 Potassium 4.0 Chloride 95 L Carbon Dioxide 34 H BUN 15 Creatinine 0.85 Glucose 114 H Calcium 9.4 - Attending Attestation I examined this patient and my medical decision-making was reviewed with the BRICK AND TILE MAKING MACHINE OPERATOR/PA/Advanced Practice Nurse/Resident Physician. I agree with the documented findings, disposition and treatment plan as described except to the extent set forth below. Likely home in 1-2 days
[2017-01-13] MEDS: Budesonide/Formoterol 160/4.5 MDI IH SCH ×2 (11:17→22:23)
--- NOTE | 2017-01-13 14:35 | Pulmonology Progress Note ---
Date of Encounter: 01/13/17 Time of Encounter: 09:50 Assessment and Plan (1) Dyspnea Current Visit: No Status: Acute Continued improvement per past 48 hours. Persistent but decreased wheezing on exam and patient is now maintaining adequate SPO2 on ambient air. Slightly elevated nonspecific inflammatory markers but no serology findings at this point indicated the presence of connective tissue or vasculitic underlying disorder. It now appears more likely the patient has undiagnosed COPD with or without asthma component initiating event was a viral infection. In either case , recommend patient be placed on prolonged steroid taper continuing for another week and 50 mg daily with weekly reduction by 10 mg daily. After 10 mg, should be reduced to 5 mg daily for 1 week before complete discontinuation. Also recommend outpatient pulmonary follow-up for completion of evaluation. While occupational exposure is unknown component in his disease, recommend he keep himself out of work for at least one more week as exposure to industrial fumes and holding things and equipment have potential to worsen his exacerbation. Qualifiers: Dyspnea type: shortness of breath Qualified Code(s): R06.02 - Shortness of breath (2) Nicotine dependence Current Visit: Yes Status: Chronic Readdressed benefits of tobacco cessation the patient today. Continue to encourage cessation. Qualifiers: Nicotine product type: cigarettes Substance use status: unspecified nicotine-induced disorder Qualified Code(s): F17.219 - Nicotine dependence, cigarettes, with unspecified nicotine-induced disorders Subjective Principal diagnosis: Dyspnea Interval history: Consult to defer a 51-year-old male admitted for shortness of breath which was suspected to be due to undiagnosed COPD versus asthma. Patient's been treated with empiric antibiotics which were tailored and then re-broadened in addition to inhaled bronchodilators and systemic corticosteroids. The past 2 days patient reporting slight improvement in his symptoms. Chief complaint today is persistent and possibly worsening cough. Has noted a slight increase in sputum production but otherwise has no new complaints today Objective PUL Vital signs: Last Vital Signs Temp 97.6 F 01/13/17 05:14 Pulse 75 01/13/17 05:14 Resp 20 01/13/17 11:19 BP 131/91 01/13/17 05:14 Pulse Ox 92 01/13/17 11:19 General appearance: no acute distress Effort: normal Auscultation: bilateral: wheezes (Decreased from prior exam) Cardiovascular: regular rate and rhythm Gastrointestinal: soft, non-tender Extremities: no cyanosis, no clubbing Musculoskeletal: no deformities normal mental status mood appropriate Results - Laboratory Findings CBC and BMP: 01/13/17 04:58 01/13/17 04:58 Abnormal lab findings: Abnormal lab results RBC 6.14 M/mcL (4.19-5.50) H 01/13/17 04:58 Hgb 17.3 g/dL (12.9-16.9) H 01/13/17 04:58 Hct 54.7 % (37.5-50.1) H 01/13/17 04:58 Monocytes # 1.4 K/mcL (0.0-1.3) H 01/13/17 04:58 Reactive Lymphocytes Present (Not Present) A 01/13/17 04:58 ESR 27 mm/hr (0-10) H 01/11/17 13:58 Chloride 95 mEq/L (98-109) L 01/13/17 04:58 Carbon Dioxide 34 mEq/L (19-29) H 01/13/17 04:58 Glucose 114 mg/dL (70-99) H 01/13/17 04:58 POC Glucose 98 (58-89) H 01/08/17 21:18 C-Reactive Protein 11 mg/L (Less than 5) H 01/11/17 13:58 Ur Specific [place] 1.026 (1.010-1.025) H 01/08/17 19:43 - Microbiology Findings Microbiology Findings: Microbiology, Last 48 Hours 01/12/17 22:50 Sputum Culture - Final Sputum - Clinical Findings Intake & Output: Intake & Output 01/12/17 01/13/17 01/13/17 23:59 07:59 15:59 Intake Total 0 / 0 480 / 480 360 / 360 Balance 0 / 0 480 / 480 360 / 360 Weight 160.5 kg Consult Discharge Plan - Plan Referrals: Sherman Mccall Jr, MD [Primary Care Provider] - 01/16/17 11:00 am
[2017-01-13] MEDS: Gabapentin 300 MG CAPSULE PO SCH (22:08)
[2017-01-13] MEDS: *HR* HYDROmorphone (PF) 1 MG/ML SYRINGE IVP PRN (22:08)
[2017-01-13] MEDS: *HR* HYDROcodone/Acet 5/325 mg TABLET PO PRN (23:20)
[2017-01-14] MEDS: Ipratropium/Albuterol Neb 3 ML IH SCH ×4 (04:24→22:48)
[2017-01-14] MEDS: *HR* Enoxaparin 40 MG/0.4 ML SYRINGE SQ SCH (05:49)
[2017-01-14 07:39] LABS: BUN/Creatinine Ratio 23 (6-26); Blood Urea Nitrogen 18 mg/dL (8-26); Calcium 9.3 mg/dL (8.6-10.8); Carbon Dioxide 35 mEq/L (19-29); Chloride 95 mEq/L (98-109); Glucose 130 mg/dL (70-99); Osmolality,Calculated 292 (280-300); Potassium 3.3 mEq/L (3.5-4.5); Sodium 139 mEq/L (136-145); eGFR For African Americans > 60 (> 60); eGFR For Non-African Americans > 60 (> 60)
[2017-01-14 08:17] LABS: Basophils # 0.1 K/mcL (0.0-0.2); Basophils % 0.6 %; Eosinophils # 0.2 K/mcL (0.0-0.6); Eosinophils % 1.7 %; Hematocrit 53.8 % (37.5-50.1); Hemoglobin 17.6 g/dL (12.9-16.9); Immature Granulocytes % 1.9 % (0-4); Lymphocytes # 2.9 K/mcL (0.6-4.6); Lymphocytes % 21.9 %; Mean Corpuscular HGB Conc 32.7 g/dL (31.6-35.5); Mean Corpuscular Hemoglobin 28.9 pg (28.0-33.3); Mean Corpuscular Volume 88.2 fL (83.0-100.0); Mean Platelet Volume 10.5 fL (9.4-12.4); Monocytes # 1.5 K/mcL (0.0-1.3); Monocytes % 11.3 %; Neutrophils # 8.2 K/mcL (1.6-8.9); Platelet Count 246 K/mcL (140-400); Segmented Neutrophils % 62.6 %
--- NOTE | 2017-01-14 08:32 | Internal Med Progress Note ---
<Shlomo Smith - Last Filed: 01/14/17 08:29> Date of Encounter: 01/14/17 Time of Encounter: 08:29 - Assessment and plan (1) Acute respiratory failure Current Visit: Yes Status: Acute Assessment and plan: Likely multifactorial with undiagnosed underlying COPD with acute exacerbation as well as diastolic HF contributing. Oxygenation improved, no longer requiring supplemental oxygen. We will performed 6 minute walk test prior to discharge to evaluate for home O2. Qualifiers: Respiratory failure complication: hypoxia Qualified Code(s): J96.01 - Acute respiratory failure with hypoxia (2) Sepsis Current Visit: Yes Status: Resolved Assessment and plan: Patient presented with a heart rate greater than 90 and temperature 102.2 Fahrenheit with evidence of pneumonia. Resolved at this time. Continue antibiotic treatment. Cultures are negative. Qualifiers: Sepsis type: sepsis due to unspecified organism Qualified Code(s): A41.9 - Sepsis, unspecified organism (3) (HFpEF) heart failure with preserved ejection fraction Current Visit: Yes Status: Acute Assessment and plan: Echo shows normal EF with mild diastolic dysfunction. CXR shows pulm vacsular congestion. Patient appears improved with diuresis, will decrease Lasix to 20 mg IV twice a day. Monitor kidney function and respiratory status. (4) Community acquired pneumonia Current Visit: Yes Status: Acute Assessment and plan: Respiratory status appears improved. Continue Levaquin, day 6 of 10. (5) COPD with acute exacerbation Current Visit: Yes Status: Suspected Assessment and plan: Patient has not been formally diagnosed but given his smoking history patient likely has underlying COPD and is in acute exacerbation with shortness of breath , cough, increased sputum production. 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 Continue with antibiotics as discussed above, bronchodilators, transitioned to by mouth steroids. Patient will require an extended taper of steroids at discharge. Patient should have formal PFTs as an outpatient and will have the patient follow up with pulmonology as an outpatient. Appreciate pulmonology recommendations. (6) Hypokalemia Current Visit: Yes Status: Acute Assessment and plan: Mild with potassium of 3.3 today. Likely due to aggressive diuresis. No changes on telemetry. Lasix has been decreased as discussed above. We will supplement. Continue to monitor. (7) Nicotine dependence Current Visit: Yes Status: Chronic Assessment and plan: Patient has [id number] history. Discussed smoking cessation with the patient , he does not appear interested at this time. We will continue to discuss. Qualifiers: Nicotine product type: cigarettes Substance use status: unspecified nicotine-induced disorder Qualified Code(s): F17.219 - Nicotine dependence, cigarettes, with unspecified nicotine-induced disorders (8) DVT prophylaxis Current Visit: Yes Status: Acute Assessment and plan: Lovenox 40 mg subcutaneous daily. - Subjective Interval history: Patient seen and examined at bedside. Patient states his breathing feels slightly better than yesterday. He states he is still coughing but it is no longer productive and the frequency has greatly decreased. He denies any fever , chills, chest pain. - Constitutional Vitals: Temp Pulse Resp BP Pulse Ox 98.0 F 76 16 121/75 91 01/14/17 07:58 01/14/17 07:58 01/14/17 07:58 01/14/17 07:58 01/14/17 07:58 General appearance: Present: A&O X 3, no acute distress, obese - Respiratory Respiratory exam: Present: decreased breath sounds. Absent: rales, rhonchi, wheezes - Cardiovascular Cardiovascular exam: Present: RRR. Absent: gallop, rubs, systolic murmur - GI/Abdominal GI/Abdominal exam: Present: normal bowel sounds, soft. Absent: distended, tenderness - Extremities Exam Extremities exam: Present: warm. Absent: pedal edema, tenderness - Neurological Exam Neurological exam: Present: alert, CN II-XII intact, oriented X3, no focal deficits Internal Medicine: Result - Labs CBC & Chem 7: 01/14/17 07:18 01/14/17 07:18 Labs: Short CBC 01/14/17 Range/Units 07:18 WBC 13.2 H (4.3-11.1) K/mcL Hgb 17.6 H (12.9-16.9) g/dL Hct 53.8 H (37.5-50.1) % Plt Count 246 (140-400) K/mcL Neutrophils # 8.2 (1.6-8.9) K/mcL BMP 01/14/17 07:18 Sodium 139 Potassium 3.3 L Chloride 95 L Carbon Dioxide 35 H BUN 18 Creatinine 0.79 Glucose 130 H Calcium 9.3 Consult Discharge Plan - Plan Referrals: Sherman Mccall Jr, MD [Primary Care Provider] - 01/16/17 11:00 am Prescriptions: Albuterol Neb [Proventil Neb] 2.5 mg IH Q4HR PRN #1 b PRN Reason: difficulty breathing <Guille Gee P - Last Filed: 01/14/17 11:24> Date of Encounter: 01/14/17 - Constitutional Vitals: Temp Pulse Resp BP Pulse Ox 98.1 F 85 16 121/78 91 01/14/17 11:11 01/14/17 11:11 01/14/17 11:11 01/14/17 11:11 01/14/17 07:58 Internal Medicine: Result - Labs CBC & Chem 7: 01/14/17 07:18 01/14/17 07:18 Labs: Short CBC 01/14/17 Range/Units 07:18 WBC 13.2 H (4.3-11.1) K/mcL Hgb 17.6 H (12.9-16.9) g/dL Hct 53.8 H (37.5-50.1) % Plt Count 246 (140-400) K/mcL Neutrophils # 8.2 (1.6-8.9) K/mcL BMP 01/14/17 07:18 Sodium 139 Potassium 3.3 L Chloride 95 L Carbon Dioxide 35 H BUN 18 Creatinine 0.79 Glucose 130 H Calcium 9.3 - Attending Attestation I examined this patient and my medical decision-making was reviewed with the REFRIGERATOR REPAIR TECHNICIAN/PA/Advanced Practice Nurse/Resident Physician. I agree with the documented findings, disposition and treatment plan as described except to the extent set forth below. Likely home tomorrow
[2017-01-14] MEDS: levoFLOXacin 750 MG TABLET PO SCH (09:18)
[2017-01-14] MEDS: Lactobacillus 1 EACH CAP.SPRINK PO SCH ×2 (09:18→19:53)
[2017-01-14] MEDS: predniSONE 20 MG TABLET PO SCH (09:19)
[2017-01-14] MEDS: FLUoxetine 20 MG CAPSULE PO SCH (09:20)
[2017-01-14] MEDS: Furosemide 40 MG/4 ML VIAL IVP SCH ×2 (09:20→18:12)
[2017-01-14] MEDS: Budesonide/Formoterol 160/4.5 MDI IH SCH ×2 (10:48→22:48)
--- NOTE | 2017-01-14 11:06 | Pulmonology Progress Note ---
Date of Encounter: 01/14/17 Time of Encounter: 09:30 Assessment and Plan (1) Dyspnea Current Visit: No Status: Acute Patient showing further improvement today with near complete resolution of wheezing on lung exam. Still suspect multifactorial etiology to include undiagnosed COPD with possible features of asthma, acute viral infection, and possible occupational exposure. Recommend prolonged steroid taper as outlined in yesterday's note. Continued inhaled bronchodilator therapy as outpatient. The patient is prescribed HFA devices, please include spacer device for use and ensure that patient is coached on technique. 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 Recommend outpatient pulmonary follow-up. Qualifiers: Dyspnea type: shortness of breath Qualified Code(s): R06.02 - Shortness of breath (2) Nicotine dependence Current Visit: Yes Status: Chronic Readdressed benefits of tobacco cessation the patient today. Continue to encourage cessation. Qualifiers: Nicotine product type: cigarettes Substance use status: unspecified nicotine-induced disorder Qualified Code(s): F17.219 - Nicotine dependence, cigarettes, with unspecified nicotine-induced disorders Subjective Principal diagnosis: Dyspnea Interval history: Consult to defer a 51-year-old male admitted for shortness of breath which was suspected to be due to undiagnosed COPD versus asthma. Patient's been treated with empiric antibiotics which were tailored and then re-broadened in addition to inhaled bronchodilators and systemic corticosteroids. Patient has shown slow progress over the past 48-72 hours. This morning reports continued improvement in breathing with no further supplemental oxygen requirement. Notes decrease in cough Objective PUL Vital signs: Last Vital Signs Temp 98.0 F 01/14/17 07:58 Pulse 76 01/14/17 07:58 Resp 16 01/14/17 07:58 BP 121/75 01/14/17 07:58 Pulse Ox 91 01/14/17 07:58 General appearance: no acute distress Eyes: nonicteric Effort: normal Auscultation: left: wheezes (Slight expiratory wheeze over the left middle and upper [place]. Otherwise clear to auscultation) Tactile fremitus: left: diminished Cardiovascular: regular rate and rhythm Gastrointestinal: soft, non-tender Extremities: no cyanosis, no clubbing Musculoskeletal: no deformities normal mental status mood appropriate Results - Laboratory Findings CBC and BMP: 01/14/17 07:18 01/14/17 07:18 Abnormal lab findings: Abnormal lab results WBC 13.2 K/mcL (4.3-11.1) H 01/14/17 07:18 RBC 6.10 M/mcL (4.19-5.50) H 01/14/17 07:18 Hgb 17.6 g/dL (12.9-16.9) H 01/14/17 07:18 Hct 53.8 % (37.5-50.1) H 01/14/17 07:18 Monocytes # 1.5 K/mcL (0.0-1.3) H 01/14/17 07:18 Reactive Lymphocytes Present (Not Present) A 01/13/17 04:58 ESR 27 mm/hr (0-10) H 01/11/17 13:58 Potassium 3.3 mEq/L (3.5-4.5) L 01/14/17 07:18 Chloride 95 mEq/L (98-109) L 01/14/17 07:18 Carbon Dioxide 35 mEq/L (19-29) H 01/14/17 07:18 Glucose 130 mg/dL (70-99) H 01/14/17 07:18 POC Glucose 98 (58-89) H 01/08/17 21:18 C-Reactive Protein 11 mg/L (Less than 5) H 01/11/17 13:58 Ur Specific [place] 1.026 (1.010-1.025) H 01/08/17 19:43 - Microbiology Findings Microbiology Findings: Microbiology, Last 48 Hours 01/12/17 22:50 Sputum Culture - Final Sputum - Clinical Findings Intake & Output: Intake & Output 01/13/17 01/14/17 01/14/17 23:59 07:59 15:59 Intake Total 0 / 0 950 / 950 Output Total 0 / 0 Balance 0 / 0 950 / 950 0 / 0 Weight 160.8 kg Consult Discharge Plan - Plan Referrals: Sherman Mccall Jr, MD [Primary Care Provider] - 01/16/17 11:00 am Prescriptions: Albuterol Neb [Proventil Neb] 2.5 mg IH Q4HR PRN #1 b PRN Reason: difficulty breathing
[2017-01-14] MEDS: Gabapentin 300 MG CAPSULE PO SCH (19:53)
[2017-01-15] MEDS: Ipratropium/Albuterol Neb 3 ML IH SCH ×2 (04:09→10:48)
[2017-01-15] MEDS: *HR* Enoxaparin 40 MG/0.4 ML SYRINGE SQ SCH (04:59)
[2017-01-15 06:16] LABS: Basophils # 0.1 K/mcL (0.0-0.2); Basophils % 0.5 %; Eosinophils # 0.2 K/mcL (0.0-0.6); Hematocrit 52.2 % (37.5-50.1); Hemoglobin 17.1 g/dL (12.9-16.9); Immature Granulocytes % 1.7 % (0-4); Lymphocytes % 18.2 %; Mean Corpuscular HGB Conc 32.8 g/dL (31.6-35.5); Mean Corpuscular Volume 88.5 fL (83.0-100.0); Mean Platelet Volume 10.1 fL (9.4-12.4); Monocytes # 1.6 K/mcL (0.0-1.3); Monocytes % 9.6 %; Neutrophils # 11.3 K/mcL (1.6-8.9); Platelet Count 266 K/mcL (140-400); Red Cell Distribution Width 13.6 % (11.5-14.5)
[2017-01-15 06:24] LABS: BUN/Creatinine Ratio 19 (6-26); Blood Urea Nitrogen 15 mg/dL (8-26); Calcium 9.1 mg/dL (8.6-10.8); Carbon Dioxide 33 mEq/L (19-29); Chloride 98 mEq/L (98-109); Glucose 118 mg/dL (70-99); Osmolality,Calculated 292 (280-300); Potassium 4.1 mEq/L (3.5-4.5); Sodium 140 mEq/L (136-145); eGFR For African Americans > 60 (> 60); eGFR For Non-African Americans > 60 (> 60)
--- NOTE | 2017-01-15 08:16 | Discharge Summary ---
<Shlomo Smith - Last Filed: 01/15/17 09:03> Date of Encounter: 01/15/17 Time of Encounter: 08:06 - Discharge Diagnosis (1) Acute respiratory failure Priority: Primary Status: Resolved Qualifiers: Respiratory failure complication: hypoxia Qualified Code(s): J96.01 - Acute respiratory failure with hypoxia (2) Sepsis Priority: Primary Status: Resolved Qualifiers: Sepsis type: sepsis due to unspecified organism Qualified Code(s): A41.9 - Sepsis, unspecified organism (3) (HFpEF) heart failure with preserved ejection fraction Priority: Primary Status: Acute (4) Community acquired pneumonia Priority: Primary Status: Acute (5) COPD with acute exacerbation Priority: Primary Status: Suspected (6) Hypokalemia Priority: Secondary Status: Acute (7) Nicotine dependence Priority: Secondary Status: Chronic Qualifiers: Nicotine product type: cigarettes Substance use status: unspecified nicotine-induced disorder Qualified Code(s): F17.219 - Nicotine dependence, cigarettes, with unspecified nicotine-induced disorders (8) DVT prophylaxis Priority: Secondary Status: Inactive - Discharge Medications Prescriptions: Albuterol Neb [Proventil Neb] 2.5 mg IH Q4HR PRN #1 b PRN Reason: difficulty breathing Albuterol Sulfate [Albuterol Inhaler] 1 puff IH Q4HR PRN #1 hfa.aer.ad PRN Reason: Shortness Of Breath/Wheezing Budesonide/Formoterol 160/4.5 [Symbicort 160/4.5] 2 puff IH BIDR #1 inhaler Furosemide [Lasix] 20 mg PO BID #60 tablet levoFLOXacin [Levaquin] 750 mg PO DAILY #3 tablet Nebulizer [Aeroeclipse] 1 each MC Q4H PRN #1 each PRN Reason: Shortness Of Breath/Wheezing Nebulizer Accessories [A.i.r.s. Nebulizer] 1 each MC Q4H PRN #1 kit PRN Reason: Shortness Of Breath/Wheezing Potassium Chloride 20 meq PO DAILY #30 tab.er.prt predniSONE [PredniSONE] See Taper PO DAILY #74 tablet Home Medications: Cyclobenzaprine [Flexeril] 10 mg PO TID PRN 01/09/17 [History] FLUoxetine HCl [Prozac] 20 mg PO DAILY 01/09/17 [History] Gabapentin [Neurontin] 300 mg PO HS 01/09/17 [History] Ibuprofen [Motrin] 800 mg PO Q6-8H PRN 01/09/17 [History] Multivits,Ca,Min/Iron/FA/Lycop [Men Under 50 Multivitamin Tab] 1 tab PO DAILY [History] Albuterol Neb [Proventil Neb] 2.5 mg IH Q4HR PRN #1 b 01/13/17 [Rx] Albuterol Sulfate [Albuterol Inhaler] 1 puff IH Q4HR PRN #1 hfa.aer.ad 01/15/17 [Rx] Budesonide/Formoterol 160/4.5 [Symbicort 160/4.5] 2 puff IH BIDR #1 inhaler [Rx] Furosemide [Lasix] 20 mg PO BID #60 tablet 01/15/17 [Rx] Nebulizer Accessories [A.i.r.s. Nebulizer] 1 each MC Q4H PRN #1 kit 01/15/17 [Rx ] Nebulizer [Aeroeclipse] 1 each MC Q4H PRN #1 each 01/15/17 [Rx] Potassium Chloride 20 meq PO DAILY #30 tab.er.prt 01/15/17 [Rx] levoFLOXacin [Levaquin] 750 mg PO DAILY #3 tablet 01/15/17 [Rx] predniSONE [PredniSONE] See Taper PO DAILY #74 tablet 01/15/17 [Rx] Allergies/Adverse Reactions: Allergies No Known Allergies Allergy (Verified 01/09/17 09:02) - Notes to Outpatient Provider We would recommend cardiac stress testing as an outpatient once the patient's respiratory status has improved to the point that he can lie flat for testing. Would also recommend PFTs as an outpatient. Date of admission: 01/08/17 21:52 Primary care physician: Sherman Mccall Jr, MD Consults: 01/09/17 15:52 Consult to Pulmonology [CONS] Routine Consulting Provider: Pulm Crit Care & Sleep Vickie Reason for Consult: Abnormal CT Call Completed: Yes 01/13/17 11:13 Consult to Cylinder Steamer [CONS] Routine Reason for SW Consult: Home nebulizer, possible home O2 Discharging clinician: Shlomo Smith Anticipated date of discharge: 01/15/17 - Patient Status Disposition: Home, Self-Care Condition: Good Overall status at discharge: patient is progressing back to baseline - Discharge Instructions Instructions: Furosemide (By mouth), Albuterol (By breathing), Albuterol (By mouth), Prednisone (By mouth), Potassium Chloride (By mouth), Levofloxacin (By mouth), Budesonide/Formoterol (By breathing), How to Use a Nebulizer (DC), Pneumonia (DC) Follow Up With: Sherman Mccall Jr, MD [Primary Care Provider] - 01/16/17 11:00 am Wayne Pham MD [Partnered Physician] - (appointment requested) Additional Instructions: Please follow up with your primary care physician as scheduled. Please follow up with the stenotype machine operator as scheduled. Please resume your home medications. Please start your new medications including Symbicort twice a day, albuterol inhaler and nebulizers as needed, first my 20 mg twice a day with potassium supplementation daily. Please complete your steroids as directed. We would strongly recommend that he discontinue smoking. Please return for any new or worsening symptoms. - Diet and Activity Activity: increase activity as tolerated Diet: low fat, low cholesterol, low salt diet Interval History: Patient seen and examined at bedside. Patient states that he feels pretty good. Feels his breathing is gradually improving. He denies cough, chest pain , fever, chills. Hospital course: Mr. Castellon is a 51 year old male with history of tobacco abuse presented with shortness of breath. Patient had a CAT scan that revealed a right lower lobe opacity concerning for pneumonia. The patient was placed on antibiotics and given his smoking history there is concern for undiagnosed COPD therefore the patient was treated as a COPD exacerbation with steroids, antibiotics, bronchodilators. Patient had an extremely slow recovery that included an initial de-escalation then re-escalation and antibiotic therapy. There is also concern that underlying diastolic heart failure could also be contributing to the patient's respiratory symptoms. An echo showed mild diastolic dysfunction and a stress test was attempted on 2 separate occasions however the patient's shortness of breath did not allow him to lie flat for the stress test so this was ultimately abandoned as an inpatient. Patient was evaluated by pulmonology who felt this could be undiagnosed COPD as well as lung disease related to occupational exposures. Patient will be discharged home on short acting beta agonist and a long-acting beta agonist/inhaled corticosteroid combination as well as an extended steroid taper. Patient will also be discharged on Lasix with potassium supplementation. The patient will be scheduled for an outpatient follow-up with pulmonology. Patient has been discharged home in stable condition. - Time Spent with Patient Total time spent providing and/or coordinating discharge services: - Constitutional Vitals: Temp Pulse Resp BP Pulse Ox 98.5 F 75 18 138/72 94 01/15/17 07:14 01/15/17 07:14 01/15/17 07:14 01/15/17 07:14 01/15/17 07:14 General appearance: Present: A&O X 3, no acute distress, obese - Respiratory Respiratory exam: Present: decreased breath sounds. Absent: rales, rhonchi, wheezes - Cardiovascular Cardiovascular exam: Present: RRR. Absent: gallop, rubs, systolic murmur - GI/Abdominal GI/Abdominal exam: Present: normal bowel sounds, soft. Absent: distended, tenderness - Extremities Exam Extremities exam: Present: warm. Absent: pedal edema, tenderness <Marlen,Guille P - Last Filed: 01/15/17 13:34> Date of Encounter: 01/15/17 Date of admission: 01/08/17 21:52 Primary care physician: Sherman Mccall Jr, MD Consults: 01/09/17 15:52 Consult to Pulmonology [CONS] Routine Consulting Provider: Pulm Crit Care & Sleep Vickie Reason for Consult: Abnormal CT Call Completed: Yes 01/13/17 11:13 Consult to Cylinder Steamer [CONS] Routine Reason for SW Consult: Home nebulizer, possible home O2 Hospital course: Mr. Castellon is a 51 year old male - Time Spent with Patient Total time spent providing and/or coordinating discharge services: - Constitutional Vitals: Temp Pulse Resp BP Pulse Ox 97.9 F 95 18 144/72 95 01/15/17 11:04 01/15/17 11:04 01/15/17 11:04 01/15/17 11:04 01/15/17 11:04 - Attending Attestation I examined this patient and my medical decision-making was reviewed with the PROJECT ADMINISTRATIVE ASSISTANT/PA/Advanced Practice Nurse/Resident Physician. I agree with the documented findings, disposition and treatment plan as described except to the extent set forth below.
[2017-01-15] MEDS: levoFLOXacin 750 MG TABLET PO SCH (08:40)
[2017-01-15] MEDS: FLUoxetine 20 MG CAPSULE PO SCH (08:40)
[2017-01-15] MEDS: Lactobacillus 1 EACH CAP.SPRINK PO SCH (08:40)
[2017-01-15] MEDS: Furosemide 40 MG/4 ML VIAL IVP SCH (08:40)
[2017-01-15] MEDS: predniSONE 20 MG TABLET PO SCH (08:41)
--- NOTE | 2017-01-15 09:03 | Physician Discharge Referral ---
<Shlomo Smith - Last Filed: 01/15/17 09:02> Home Health/Hosp Referral Info Transfer to: Home Health Attending Provider: Guille Gee Provider in Charge Post Discharge: PCP - Diagnosis (1) Acute respiratory failure Priority: Primary Status: Resolved (2) Sepsis Priority: Primary Status: Resolved (3) (HFpEF) heart failure with preserved ejection fraction Priority: Primary Status: Acute (4) Community acquired pneumonia Priority: Primary Status: Acute (5) COPD with acute exacerbation Priority: Primary Status: Suspected (6) Hypokalemia Priority: Secondary Status: Acute (7) Nicotine dependence Priority: Secondary Status: Chronic - Respiratory Orders Other (Nebulizer machine) Smoking Cessation: Smoking cessation has been advised. For more information, call the [employer] Quit Line at 7-781-PEALNOW. - Services Needed Home Care Orders: Patient does not need home health services just needs in home health for nebulizer machine. - Transfer Medications Prescriptions: Albuterol Neb [Proventil Neb] 2.5 mg IH Q4HR PRN #1 b PRN Reason: difficulty breathing Albuterol Sulfate [Albuterol Inhaler] 1 puff IH Q4HR PRN #1 hfa.aer.ad PRN Reason: Shortness Of Breath/Wheezing Budesonide/Formoterol 160/4.5 [Symbicort 160/4.5] 2 puff IH BIDR #1 inhaler Furosemide [Lasix] 20 mg PO BID #60 tablet levoFLOXacin [Levaquin] 750 mg PO DAILY #3 tablet Nebulizer [Aeroeclipse] 1 each MC Q4H PRN #1 each PRN Reason: Shortness Of Breath/Wheezing Nebulizer Accessories [A.i.r.s. Nebulizer] 1 each MC Q4H PRN #1 kit PRN Reason: Shortness Of Breath/Wheezing Potassium Chloride 20 meq PO DAILY #30 tab.er.prt predniSONE [PredniSONE] See Taper PO DAILY #74 tablet Home Medications: Cyclobenzaprine [Flexeril] 10 mg PO TID PRN 01/09/17 [History] FLUoxetine HCl [Prozac] 20 mg PO DAILY 01/09/17 [History] Gabapentin [Neurontin] 300 mg PO HS 01/09/17 [History] Ibuprofen [Motrin] 800 mg PO Q6-8H PRN 01/09/17 [History] Multivits,Ca,Min/Iron/FA/Lycop [Men Under 50 Multivitamin Tab] 1 tab PO DAILY [History] Albuterol Neb [Proventil Neb] 2.5 mg IH Q4HR PRN #1 b 01/13/17 [Rx] Albuterol Sulfate [Albuterol Inhaler] 1 puff IH Q4HR PRN #1 hfa.aer.ad 01/15/17 [Rx] Budesonide/Formoterol 160/4.5 [Symbicort 160/4.5] 2 puff IH BIDR #1 inhaler [Rx] Furosemide [Lasix] 20 mg PO BID #60 tablet 01/15/17 [Rx] Nebulizer Accessories [A.i.r.s. Nebulizer] 1 each MC Q4H PRN #1 kit 01/15/17 [Rx ] Nebulizer [Aeroeclipse] 1 each MC Q4H PRN #1 each 01/15/17 [Rx] Potassium Chloride 20 meq PO DAILY #30 tab.er.prt 01/15/17 [Rx] levoFLOXacin [Levaquin] 750 mg PO DAILY #3 tablet 01/15/17 [Rx] predniSONE [PredniSONE] See Taper PO DAILY #74 tablet 01/15/17 [Rx] Allergies/Adverse Reactions: Allergies No Known Allergies Allergy (Verified 01/09/17 09:02) Certification: Further, I certify that my clinical findings support that this patient is homebound (i.e. absences from home require considerable and taxing effort and are for medical reasons or evangelical services or infrequently or short duration when for other reasons) because: Homebound Reason: Patient requires assistance of a person or device to safely leave home (Patient needs nebulizer machine) Attestation: My signature below is to certify that this patient is under my care and that I, or nurse practitioner, or a physician's enrichment assistant working with me, has a face-to -face encounter with this patient. <Guille Gee P - Last Filed: 01/15/17 13:34> - Respiratory Orders Smoking Cessation: Smoking cessation has been advised. For more information, call the [employer] Quit Line at 8-120-MGPP-NOW. Certification: Further, I certify that my clinical findings support that this patient is homebound (i.e. absences from home require considerable and taxing effort and are for medical reasons or evangelical services or infrequently or short duration when for other reasons) because: Attestation: My signature below is to certify that this patient is under my care and that I, or nurse practitioner, or a physician's enrichment assistant working with me, has a face-to -face encounter with this patient.
[2017-01-15] MEDS: Budesonide/Formoterol 160/4.5 MDI IH SCH (10:48)
[2017-01-15 11:07] VITALS: BP 144/72
--- NOTE | 2017-01-15 14:58 | Pulmonology Progress Note ---
Date of Encounter: 01/15/17 Time of Encounter: 10:30 Assessment and Plan (1) Dyspnea Status: Resolved Patient showing further improvement today with near complete resolution of wheezing on lung exam. Still suspect multifactorial etiology to include undiagnosed COPD with possible features of asthma, acute viral infection, and possible occupational exposure. Recommend prolonged steroid taper as outlined in previous note. Continued inhaled bronchodilator therapy as outpatient. The patient is prescribed HFA devices, please include spacer device for use and ensure that patient is coached on technique. 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 Recommend outpatient pulmonary follow-up. Recommend follow-up CT chest in 6-12 weeks to confirm resolution of right lower lobe findings. Qualifiers: Dyspnea type: shortness of breath Qualified Code(s): R06.02 - Shortness of breath (2) Nicotine dependence Status: Chronic Readdressed benefits of tobacco cessation the patient today. Continue to encourage cessation. Qualifiers: Nicotine product type: cigarettes Substance use status: unspecified nicotine-induced disorder Qualified Code(s): F17.219 - Nicotine dependence, cigarettes, with unspecified nicotine-induced disorders Subjective Principal diagnosis: Dyspnea Interval history: Consult to defer a 51-year-old male admitted for shortness of breath which was suspected to be due to undiagnosed COPD versus asthma. After approximately one week of treatment with systemic steroids, inhaled bronchodilators, antibiotics, patient shows significant improvement. Patient sent for discharge today. No new complaints this morning. Objective PUL Vital signs: Last Vital Signs Temp 97.9 F 01/15/17 11:04 Pulse 95 01/15/17 11:04 Resp 18 01/15/17 11:04 BP 144/72 01/15/17 11:04 Pulse Ox 95 01/15/17 11:04 General appearance: no acute distress Auscultation: bilateral: clear, wheezes (Scant wheezing) Cardiovascular: regular rate and rhythm Gastrointestinal: soft, non-tender Integumentary: normal Extremities: no cyanosis, no clubbing Musculoskeletal: no deformities normal mental status mood appropriate Results - Laboratory Findings CBC and BMP: 01/15/17 06:01 01/15/17 06:01 Abnormal lab findings: Abnormal lab results WBC 16.3 K/mcL (4.3-11.1) H 01/15/17 06:01 RBC 5.90 M/mcL (4.19-5.50) H 01/15/17 06:01 Hgb 17.1 g/dL (12.9-16.9) H 01/15/17 06:01 Hct 52.2 % (37.5-50.1) H 01/15/17 06:01 Neutrophils # 11.3 K/mcL (1.6-8.9) H 01/15/17 06:01 Monocytes # 1.6 K/mcL (0.0-1.3) H 01/15/17 06:01 Reactive Lymphocytes Present (Not Present) A 01/13/17 04:58 ESR 27 mm/hr (0-10) H 01/11/17 13:58 Carbon Dioxide 33 mEq/L (19-29) H 01/15/17 06:01 Glucose 118 mg/dL (70-99) H 01/15/17 06:01 POC Glucose 98 (58-89) H 01/08/17 21:18 C-Reactive Protein 11 mg/L (Less than 5) H 01/11/17 13:58 Ur Specific [place] 1.026 (1.010-1.025) H 01/08/17 19:43 - Clinical Findings Intake & Output: Intake & Output 01/14/17 01/15/17 01/15/17 23:59 07:59 15:59 Intake Total 360 / 360 Balance 360 / 360 Consult Discharge Plan - Plan Instructions: Furosemide (By mouth), Albuterol (By breathing), Albuterol (By mouth), Prednisone (By mouth), Potassium Chloride (By mouth), Levofloxacin (By mouth), Budesonide/Formoterol (By breathing), How to Use a Nebulizer (DC), Pneumonia (DC) Additional Instructions: Please follow up with your primary care physician as scheduled. Please follow up with the network manager as scheduled. Please resume your home medications. Please start your new medications including Symbicort twice a day, albuterol inhaler and nebulizers as needed, first my 20 mg twice a day with potassium supplementation daily. Please complete your steroids as directed. We would strongly recommend that he discontinue smoking. Please return for any new or worsening symptoms. Referrals: Sherman Mccall Jr, MD [Primary Care Provider] - 01/16/17 11:00 am Wayne Pham MD [Partnered Physician] - (appointment requested) Prescriptions: Albuterol Neb [Proventil Neb] 2.5 mg IH Q4HR PRN #1 b PRN Reason: difficulty breathing Albuterol Sulfate [Albuterol Inhaler] 1 puff IH Q4HR PRN #1 hfa.aer.ad PRN Reason: Shortness Of Breath/Wheezing Budesonide/Formoterol 160/4.5 [Symbicort 160/4.5] 2 puff IH BIDR #1 inhaler Furosemide [Lasix] 20 mg PO BID #60 tablet levoFLOXacin [Levaquin] 750 mg PO DAILY #3 tablet Nebulizer [Aeroeclipse] 1 each MC Q4H PRN #1 each PRN Reason: Shortness Of Breath/Wheezing Nebulizer Accessories [A.i.r.s. Nebulizer] 1 each MC Q4H PRN #1 kit PRN Reason: Shortness Of Breath/Wheezing Potassium Chloride 20 meq PO DAILY #30 tab.er.prt predniSONE [PredniSONE] See Taper PO DAILY #74 tablet
[2017-01-16 07:13] LABS: Myeloperoxidase Ab 5 AU/mL (0-19); Serine Protease-3 Antibody 0 AU/mL (0-19)
== END 2017-01-15 11:53 | disposition home or self-care (01) | DRG 871 ==
LOC: EMEROO 16:06 → 2NENU 16:06 → SUATTDRO 21:52
PROVIDERS: ADMIT Hospitalist; ATTEND Internal Medicine

== ENCOUNTER 2017-02-03 19:37 | Inpatient (IN) ==
[2017-02-03] MEDS ORDERED: Ondansetron 4 MG/2 ML VIAL IVP ONE (20:19)
[2017-02-03] MEDS ORDERED: 0.9 % Sodium Chloride 1,000 ML IVC ONE (20:19)
[2017-02-03] MEDS ORDERED: methylPREDNISolone 125 MG/2 ML VIAL IVP ONE (20:20)
[2017-02-03] MEDS ORDERED: Ipratropium/Albuterol Neb 3 ML IH ONE (20:20)
[2017-02-03 20:29] LABS: Basophils # 0.1 K/mcL (0.0-0.2); Basophils % 0.7 %; Eosinophils # 0.3 K/mcL (0.0-0.6); Eosinophils % 2.5 %; Hematocrit 53.4 % (37.5-50.1); Hemoglobin 16.6 g/dL (12.9-16.9); Immature Granulocytes % 0.6 % (0-4); Lymphocytes # 2.9 K/mcL (0.6-4.6); Lymphocytes % 23.5 %; Mean Corpuscular HGB Conc 31.1 g/dL (31.6-35.5); Mean Corpuscular Hemoglobin 27.9 pg (28.0-33.3); Mean Corpuscular Volume 89.6 fL (83.0-100.0); Mean Platelet Volume 10.2 fL (9.4-12.4); Monocytes # 1.2 K/mcL (0.0-1.3); Neutrophils # 7.7 K/mcL (1.6-8.9); Platelet Count 246 K/mcL (140-400); Red Blood Count 5.96 M/mcL (4.19-5.50); Segmented Neutrophils % 62.7 %
--- NOTE | 2017-02-03 20:29 | Emergency Department Note ---
Disposition Clinical Impression: Dysarthria, Ischemic stroke, Hypoxia Disposition: Admitted As Inpatient Condition: Good Forms: ED Satisfaction Letter Time of Disposition: 22:09 Altered Mental Status HPI - General Chief Complaint: ED Altered Mental Status Stated Complaint: disoriented Time Seen by Provider: 02/03/17 19:52 Source: patient, family Mode of arrival: ambulatory Limitations: no limitations Nursing Notes Reviewed: Yes Vital Signs Reviewed: Yes - History of Present Illness HPI Narrative: Patient presents to emergency room with complaint of intermittent confusion. Patient approximately 2 PM this afternoon was told by one of his coworkers and is asking questions and answering moving strangely. He did not notice it at that time. Patient was just discharged from the hospital with pneumonia and hypoxia secondary to COPD. Patient doing well at home until today. Denied any other symptoms or complaints. 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 Timing confirmed by: spouse Pain Severity: mild Consistency of Symptoms: waxing and waning Context: COPD Associated symptoms: Reports: cough, shortness of breath - Related Data Home Medications Medication Instructions Recorded Confirmed FLUoxetine HCl [Prozac] 20 mg PO DAILY 01/09/17 01/09/17 Gabapentin [Neurontin] 300 mg PO HS 01/09/17 01/09/17 Ibuprofen [Motrin] 800 mg PO Q6-8H PRN 01/09/17 01/09/17 Albuterol Sulfate [Albuterol 2 puff IH Q4HR PRN 02/03/17 02/03/17 Inhaler] Ipratropium/Albuterol Neb [Duoneb] 3 ml IH Q6HR 02/03/17 02/03/17 Multivitamin [Multi-Day Vitamins] 1 each PO DAILY 02/03/17 02/03/17 Previous Rx's Medication Instructions Recorded Budesonide/Formoterol 160/4.5 2 puff IH BIDR #1 inhaler 01/15/17 [Symbicort 160/4.5] Furosemide [Lasix] 20 mg PO BID #60 tablet 01/15/17 Potassium Chloride 20 meq PO DAILY #30 tab.er.prt 01/15/17 predniSONE [PredniSONE] See Taper PO DAILY #74 tablet 01/15/17 Allergies Allergy/AdvReac Type Severity Reaction Status Date / Time No Known Allergies Allergy Verified 01/09/17 09:02 All systems ED: reviewed and negative except as stated. Constitutional: Denies: fever, chills, weakness ENT ED: Denies: ear pain, throat pain Cardiovascular: Reports: dyspnea on exertion, orthopnea. Denies: chest pain, palpitations Respiratory: Reports: cough, dyspnea. Denies: wheezes Gastrointestinal: Denies: abdominal pain, nausea, vomiting, diarrhea Genitourinary: Denies: dysuria, frequency Musculoskeletal: Denies: back pain, neck pain Neurological: Reports: confusion. Denies: headache, weakness, numbness Endocrine: Denies: fatigue Past Medical History - Past Medical History Attestation: Yes The following information was validated with the patient. Source: patient Medical history: Reports: COPD, kidney stones Surgical history: Reports: non-contributory Psychiatric history: Reports: anxiety, depression - Social History Smoking Status: Current every day smoker Smokeless Tobacco Status: No Alcohol use: Reports: none Drug use: Reports: none Physical Exam - General Limitations: no limitations General appearance: alert, in no apparent distress - Head Head exam: atraumatic, normocephalic, normal inspection - Eye Eye exam: Present: normal appearance, PERRL, EOMI. Absent: scleral icterus, conjunctival injection, nystagmus, miosis, mydriasis - ENT ENT exam: normal exam, normal oropharynx, mucous membranes moist - Neck Neck exam: Present: normal inspection, full ROM, trachea midline. Absent: tenderness - Chest Chest inspection: Present: normal inspection, symmetric chest wall rise - Respiratory Respiratory exam: Present: normal lung sounds bilaterally. Absent: respiratory distress, wheezes - Cardiovascular Cardiovascular exam: Present: regular rate, normal rhythm, normal heart sounds - Abdominal Exam Abdominal exam: Present: soft, Non-Tender, normal bowel sounds. Absent: tenderness, distention, guarding, rebound, rigidity, Cyr's sign, Rovsing's sign - Extremities Exam Extremities exam: Present: normal inspection, full ROM, normal capillary refill. Absent: tenderness, pedal edema - Back Exam Back exam: Present: normal inspection, full ROM, tenderness - Neurological Exam Neurological exam: Present: alert, oriented X3, CN II-XII intact, normal gait. Absent: motor sensory deficit - Psychiatric Psychiatric exam: Present: normal affect, normal mood - Skin Skin exam: Present: warm, dry, intact, normal color Course Course Narrative: Patient seen and examined at the time of arrival. 51-year-old male presents to the emergency room with intermittent dysarthria. Symptoms came on several times throughout the day. On presentation to triage process. His pulse ox was 89% on room air and patient was short of breath. He was just discharged from the hospital several days ago after being admitted for a week for pneumonia. 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 Approximately 2 PM this afternoon is when he first noticed the symptoms today. He has no history of stroke and has no other symptoms at this time. On my initial evaluation the at the bedside and we both evaluated discussed presentation with the symptoms at this time with the patient. On my initial evaluation patient is alert and oriented 3 speaking in full sentences with no slurring of speech no facial asymmetry. Cranial nerves II through XII are grossly intact pupils equal round reactive to light. Oropharynx is patent. Trachea is midline. Lungs are clear heart is regular. Patient has normal neuromotor function the upper and lower extremities. Cerebellar function is intact with normal finger-nose and heel to jain. Patient was able to the emergency room and no signs of ataxia. Otherwise a negative evaluation at this point. Initially the symptoms were concerning for strokelike issue but because of the hypoxia he did not immediately call stroke. Thinking was that the patient was hypoxic and had confusion secondary to intermittent brain ischemia. Patient is now mentating appropriately with a pulse ox of 96% on 3 L at the bedside. Patient otherwise has no other acute findings on this workup or evaluation. 15 minutes after arrival the patient was getting an EKG and asked his birthday. The patient then went on to give Social Security number and was confused as to why they were not understanding him giving this number. At that point I called the stroke alert. Immediate CT imaging was ordered as well as a full evaluation. NIH stroke scale completed. Patient has a score of 1 based on the symptoms at this time. CT imaging pending. Disposition pending this workup and treatment goals. Low clinical suspicion for massive stroke or hemorrhage at this time. Patient is not currently a TPA candidate based on symptoms and history. Disposition pending treatment course. - Reevaluation(s) Reevaluation #1: CT imaging results were called to me by a doctor Teodoro. I reviewed the results with them directly. They said that there is what appears to be a focal hypodense area in the left parietal region of the brain consistent with acute or subacute stroke. No signs of acute hemorrhage. This is consistent with patient's usual presentation. Patient otherwise has no other acute neurologic symptoms. She will consultation assisted this time [facility] neurologist Dr. Peters. We reviewed the presentation and evaluation. Clinically elicited based on timeframe as well as symptoms and progression that the patient is on TPA candidate or a needed microvascular procedure. Recommend a stroke evaluation as an inpatient at this time. Consultation is placed at this time for our hospitalist and neurologist. Detailed review the presentations and symptoms were discussed with both the hospitalist and neurologist dr. lozano.detailed review of these symptoms with the neurologist were discussed. Recommendation is for MRI and carotid evaluation with aspirin. Hospitalist and I reviewed the presentation symptoms and consultation. No other request at this time. I discussed in detail the hypoxia and presentation of mouth along with a strokelike symptoms. That happened to evaluate and continue the course of care the hospital. Labs were reviewed showing a mildly elevated episode secondary to the infection as well as a steroid use. Patient otherwise says aspirin given her the emergency room. Disposition will be admission this time. Chest x-ray reviewed showing bilateral pulmonary congestion but no signs of infiltrate or infection. Patient stable on a good medical condition the time of admission. Family was informed of the findings in the comfortable with this plan at this time Time: 22:07 Vital Signs Temperature 98.9 F 02/03/17 19:43 Pulse Rate 113 02/03/17 19:43 Respiratory Rate 18 02/03/17 19:43 Blood Pressure 175/92 02/03/17 19:43 O2 Sat by Pulse Oximetry 89 02/03/17 19:43 Temperature 98.9 F 02/03/17 19:43 Pulse Rate 113 02/03/17 19:43 Respiratory Rate 18 02/03/17 19:43 Blood Pressure 175/92 02/03/17 19:43 O2 Sat by Pulse Oximetry 96 02/03/17 19:57 Oxygen Delivery Oxygen Delivery Room Air Altered Mental Status - MDM Narrative Medical decision making narrative: Acute left parietal ischemic stroke, dysarthria, hypoxia - Medical Records Medical records reviewed: Yes I reviewed the patient's medical records. - Lab Data Lab results reviewed: Yes I reviewed the patient's lab results. - Radiology Data Radiology results reviewed: Yes I reviewed the patient's radiology results. CT imaging of the head concerning for acute on chronic ischemic stroke in the left parietal area. No signs of bleed. Chest x-ray shows bilateral mild pulmonary congestion with no signs of infiltrate - EKG Data EKG attestation: Yes I reviewed and interpreted this EKG. EKG shows normal: sinus rhythm, axis, intervals, QRS complexes, ST-T waves Rate: normal Rhythm: NSR Hiko/QRS: normal When compared to previous EKG there are: no significant changes Interpretation: no acute changes, unchanged when compared to prior tracing (date ) () TPA Checklist - Source Information Source: Patient - Eligibilty for IV tPA 1. LKW equal to or less than 4.5 hours be before treatment: No 2. Clinical diagnosis of ischemic stroke causing deficit: Yes 3. Age 18 years or older: Yes - Contraindications 4. Evidence of intracranial hemorrhage on pretreatment CT: No 5. Presentation suggests subarachnoid hem, even if CT normal: No 6. CT shows multilobar infarction: No 7. Known neoplasm, arteriovenous malformation, or aneurysm: No 8. Significant head trauma (w/ LOC) or CVA in last 3 months: No 9. BP elevated (systolic > 185 or diastolic > 110): No 10. Abnormal Blood Glucose (<50 or >400mg/dl): No 11. Active internal bleeding [PM.TPA15]: No 12. Known bleeding risk (including; not limited to 13-15): No 13. Heparin/argatroban/bivalirudin w/in 48hrs & PTT > normal: No 14. Platelet count less than 100,000/MM3: No 15. Current or recent use of anticoagualants (see protocol): No - Warnings/Precautions Considerations 16. Prior ischemic stroke within last 3 months: No 17. Recent history of intracranial hemorrhage: No 18. : No 19. Current/recent use Effient (7 days) or Brilinta (5 days): No 20. Arterial puncture at non compressible site or LP >7days: No 21. Major surgery or serious trauma in last 14 days: No 22. GI or urinary tract hemorrhage in last 21 days: No 23. PA involving left anterior myocardium in last 3 months: No 24. Suspected or known infective endocarditis/pericarditis: No - LKW: 3-4.5 hrs Add. Warnings/Precautions 25. oral anticoag other than warfarin regardles of last dose: No Patient/family understanding: The patient/family members have been counseled and understood the risk, benefit , and alternatives of treatment. Critical Care Time Critical Care Time: Yes Total Critical Care Time: 60 Attestation: Critical care performed: Time is exclusive of separately billable procedures. Time includes: direct patient care, patient reassessment, coordination of patient care, interpretation of data (laboratory data, radiology data, and respiratory data), review of patient's medical records, medical consultation and documentation of patient care. Procedures included in critical care time: Procedures excluded from critical care time:
[2017-02-03 20:34] LABS: INR 1.1; Prothrombin Time 11.5 Seconds (9.4-12.1)
[2017-02-03 20:36] LABS: Activated Partial Thrombo Time 29.2 Seconds (26.0-36.0); BUN/Creatinine Ratio 14 (6-26); Blood Urea Nitrogen 13 mg/dL (8-26); Calcium 9.4 mg/dL (8.6-10.8); Carbon Dioxide 32 mEq/L (19-29); Chloride 102 mEq/L (98-109); Glucose 120 mg/dL (70-99); Osmolality,Calculated 295 (280-300); Potassium 3.8 mEq/L (3.5-4.5); Sodium 142 mEq/L (136-145); eGFR For African Americans > 60 (> 60); eGFR For Non-African Americans > 60 (> 60)
[2017-02-03 21:01] LABS: VBG HCO3 38.4 mEq/L (21-27); VBG PH 7.4 pH Units (7.32-7.42)
[2017-02-03] MEDS ORDERED: Aspirin 81 MG TAB.CHEW PO STA (21:18)
[2017-02-04] MEDS ORDERED: Ondansetron 4 MG/2 ML VIAL IVP PRN (00:55)
[2017-02-04] MEDS ORDERED: Acetaminophen 325 MG TABLET PO PRN (00:55)
[2017-02-04] MEDS ORDERED: Naloxone 0.4 MG/ML INJ IVP PRN (00:55)
--- NOTE | 2017-02-04 01:09 | Internal Med History&Physical ---
Date of Encounter: 02/04/17 Time of Encounter: 00:40 Assessment and Plan (1) Broca's dysphasia Current visit: Yes Status: Acute 1. On exam and by history, it appears to have mostly resolved now. 2. Proceed with stroke work-up including MR brain, ECHO, Carotid Dopplers. 3. Consult Speech and Neurology. 4. Check lipid profile. 5. Start ASA, STATIN. 6. Smoking cessation well advised. Patient interested in quitting smoking. (2) COPD (chronic obstructive pulmonary disease) Current visit: Yes Status: Chronic 1. No acute process. 2. Continue maintenance inhalers. Pt completed prednisone taper. Qualifiers: COPD type: unspecified COPD Qualified Code(s): J44.9 - Chronic obstructive pulmonary disease, unspecified (3) Tobacco use Current visit: Yes Status: Chronic 1. Pt to seek smoking cessation upon discharge. (4) DVT prophylaxis Current visit: Yes Status: Acute 1. Heparin SQ. Internal Medicine - H&P: HPI Chief complaint: abnormal speech Admitted From: Emergency Dept Plans for Post Hospital Care: Home History of present illness: Mr. Castellon is a 51 year old male who presented to the ER today several hours after onset of abnormal speech while at work. He experienced some expressive aphasia/dysphasia while at work. He also had some numbness and paresthesias in the right arm at the same time, but that quickly resolved. However, the expressive aphasia persisted and he eventually came to the ER. He underwent evaluation for possible TPA candidacy, but he was deemed not a candidate for TPA by the ER. Much of his symptoms were already resolving at that time, and he was admitted to the hospitalist service for stroke workup. Upon my assessment of the patient, his speech is intelligible roughly 95-99% of the time. He still has some subtle periods of expressive aphasia/dysphasia. Otherwise, he has no other focal neurologic deficits that he notes and/or that I notice. He confirms the above history. Other than recent hospitalization for pneumonia and respiratory distress a few weeks ago, he states he has been healthy. He is obese, but he denies any other chronic medical health problems otherwise. He remains on his breathing treatments from his last discharge and he has been off of his prednisone taper for several days now. Otherwise, he takes no chronic medications. He is a smoker, and he readily admits that he needs to quit smoking and is interested in smoking cessation. He denies any other health problems. He does not know his family history as his grandparents raised him. He never met his father. Furthermore, he never saw his mother as he was raised by his grandparents from 2 days of age. Therefore, his family history is relatively unknown. Past Med Surg Social Fam HX - Past Medical History Attestation: Yes The following information was validated with the patient. Source: patient, old records reviewed Medical history: COPD, kidney stones Psychiatric history: anxiety, depression - Past Surgical History Surgical History: orthopedic, other (shoulder surgery bilaterally) - Social History Smoking Status: Current every day smoker Packs per day: 1 Smokeless Tobacco Status: No Alcohol use: none Drug use: none Occupational status: employed Current living situation: Home, With Family Activity Level: Independent ambulation Recent Out of Country Travel Within the Last 8 Weeks: No - Family History Mother History Unknown: Yes Father History Unknown: Yes Internal Medicine - H&P: Meds FLUoxetine HCl [Prozac] 20 mg PO DAILY 01/09/17 [History] Gabapentin [Neurontin] 300 mg PO HS 01/09/17 [History] Ibuprofen [Motrin] 800 mg PO Q6-8H PRN 01/09/17 [History] Budesonide/Formoterol 160/4.5 [Symbicort 160/4.5] 2 puff IH BIDR #1 inhaler [Rx] Furosemide [Lasix] 20 mg PO BID #60 tablet 01/15/17 [Rx] Potassium Chloride 20 meq PO DAILY #30 tab.er.prt 01/15/17 [Rx] predniSONE [PredniSONE] See Taper PO DAILY #74 tablet 01/15/17 [Rx] Albuterol Sulfate [Albuterol Inhaler] 2 puff IH Q4HR PRN 02/03/17 [History] Ipratropium/Albuterol Neb [Duoneb] 3 ml IH Q6HR 02/03/17 [History] Multivitamin [Multi-Day Vitamins] 1 each PO DAILY 02/03/17 [History] Allergies No Known Allergies Allergy (Verified 01/09/17 09:02) - Constitutional Constitutional: no chills, no fever(s), no night sweats - EENT Eyes: no blurry vision, no change in vision, no diplopia Ears: no ear pain, no tinnitus Nose, mouth and throat: no nasal congestion, no nasal discharge, no sinus pressure, no sore throat - Cardiovascular Cardiovascular ROS IM: no chest pain, no diaphoresis, no dyspnea, no dyspnea on exertion, no edema, no palpitations - Respiratory Respiratory: no cough, no dyspnea, no hemoptysis, no wheezing - Gastrointestinal Gastrointestinal: no abdominal pain, no diarrhea, no hematemesis, no hematochezia, no melena, no vomiting - Genitourinary Genitourinary ROS male: no dysuria, no flank pain, no hematuria - Musculoskeletal Musculoskeletal ROS IM: no arthralgias, no back pain - Integumentary Integumentary IM: no rash - Neurological Neurological ROS: abnormal speech, no dizziness, no focal weakness, no frequent falls, no headache(s) - Psychiatric Psychiatric: no anxiety, no depression - Endocrine Endocrine IM: no polydipsia, no polyuria - Hematologic/Lymphatic Hematologic/Lymphatic: no easy bruising, no lymphadenopathy - Allergic/Immunologic Allergic/Immunologic: wheezing, no GI upset with certain foods - Constitutional Vitals: Temp Pulse Resp BP Pulse Ox 98.9 F 93 20 168/94 99 02/03/17 19:43 02/03/17 21:29 02/03/17 22:22 02/03/17 22:22 02/03/17 21:29 General appearance: Present: cooperative, A&O X 3, pleasant, no acute distress, obese - Head Head exam: Present: atraumatic, normal inspection - Eye Eye exam: Present: EOMI, normal appearance, PERRL. Absent: scleral icterus Pupils: Present: normal accommodation - ENT ENT exam: Present: mucous membranes dry, normal exam - Neck Neck exam general surgery: Present: full ROM, supple. Absent: lymphadenopathy, tenderness - Expanded Neck Exam Neck exam: Absent: carotid bruit - Respiratory Respiratory exam: Present: CTAB. Absent: chest wall tenderness, rales, rhonchi , wheezes - Cardiovascular Cardiovascular exam: Present: RRR, +S1, +S2. Absent: diastolic murmur, systolic murmur - GI/Abdominal GI/Abdominal exam: Present: normal bowel sounds, soft. Absent: hepatomegaly, mass, splenomegaly, tenderness - Extremities Exam Extremities exam: Present: full ROM, warm, radial pulses palpable and symetrical. Absent: calf tenderness, joint swelling - Back Exam Back exam: Absent: CVA tenderness (L), CVA tenderness (R) - Neurological Exam Neurological exam: Present: alert, CN II-XII intact, oriented X3, no focal deficits, strengths equal and symetr throughout, speech deficit (very subtle expressive aphasia at times; 95-99% intellible speech now). Absent: pronater drift, facial droop - Psychiatric Psychiatric exam: Present: normal affect, normal mood - Skin Skin exam: Present: dry, warm. Absent: rash Internal Med - H&P Results - Labs CBC & Chem 7: 02/03/17 20:07 02/03/17 20:07 - EKG Data -: EKG Interpreted by Myself EKG shows normal: sinus rhythm - EKG Data Prior EKG available for review: no EKG comments: 02/04/17 01:29 NSR; no acute changes - Diagnostic Studies Chest x-ray Status: image reviewed by me (negative) CT scan - head Additional comments: Report reviewed: small, old hypodense are in left parietal lobe
[2017-02-04 04:52] LABS: Basophils % 0.3 %; Eosinophils % 0.1 %; Hematocrit 51.3 % (37.5-50.1); Hemoglobin 16.1 g/dL (12.9-16.9); Immature Granulocytes % 1.3 % (0-4); Lymphocytes # 0.9 K/mcL (0.6-4.6); Lymphocytes % 10.6 %; Mean Corpuscular HGB Conc 31.4 g/dL (31.6-35.5); Mean Corpuscular Hemoglobin 28.1 pg (28.0-33.3); Mean Corpuscular Volume 89.7 fL (83.0-100.0); Mean Platelet Volume 10.4 fL (9.4-12.4); Monocytes # 0.1 K/mcL (0.0-1.3); Monocytes % 1.2 %; Neutrophils # 7.5 K/mcL (1.6-8.9); Platelet Count 225 K/mcL (140-400); Red Blood Count 5.72 M/mcL (4.19-5.50); Red Cell Distribution Width 13.8 % (11.5-14.5); Segmented Neutrophils % 86.5 %
[2017-02-04 05:10] LABS: Alanine Aminotransferase 71 Units/L (0-55); Albumin 3.6 g/dL (3.5-5.0); Alkaline Phosphatase 63 Units/L (38-126); Aspartate Amino Transferase 36 Units/L (5-34); BUN/Creatinine Ratio 12 (6-26); Bilirubin,Total 0.9 mg/dL (0.2-1.2); Blood Urea Nitrogen 11 mg/dL (8-26); Calcium 9.3 mg/dL (8.6-10.8); Carbon Dioxide 28 mEq/L (19-29); Chloride 103 mEq/L (98-109); Chol/HDL Ratio 2.8 (0-4.9); Cholesterol 145 mg/dL (< 200); Globulin 3.7 g/dL (2.4-3.5); Glucose 237 mg/dL (70-99); HDL Cholesterol 51 mg/dL (40-59); LDL Cholesterol,Calculated 81 mg/dL (0-99); Magnesium 2.1 mg/dL (1.6-2.6); Osmolality,Calculated 293 (280-300); Potassium 4.7 mEq/L (3.5-4.5); Sodium 138 mEq/L (136-145); Total Protein 7.3 g/dL (6.0-8.3); Triglycerides 65 mg/dL (< 150); eGFR For African Americans > 60 (> 60); eGFR For Non-African Americans > 60 (> 60)
[2017-02-04] MEDS: *HR* Heparin 5,000 UNIT/ML VIAL SQ SCH ×2 (05:13→17:53)
[2017-02-04] MEDS: Multivit/Ca/Min/Fe/FA 1 TAB TABLET PO SCH (08:22)
[2017-02-04] MEDS: Aspirin 81 MG TAB.CHEW PO SCH (08:22)
[2017-02-04] MEDS ORDERED: predniSONE 10 MG TABLET PO SCH (09:00)
[2017-02-04] MEDS: Budesonide/Formoterol 160/4.5 MDI IH SCH ×2 (12:23→20:44)
--- NOTE | 2017-02-04 13:19 | Neurology - Consult Note ---
Date of Encounter: 02/04/17 Time of Encounter: 13:15 Assessment and Plan (1) CVA (cerebral vascular accident) Current Visit: Yes Status: Acute Acute onset of speech difficulty with rapid improvement. MRI of brain showed acute cerebral infarct involving the left frontal, parietal and medical left frontoparietal regions in the vascular distribution of the left MCA and FAUSTO territory. Could be thromboembolic or embolic in etiology. Will obtain CTA angio of neck and brain as suggested by radiologist. also would obtain carotid artery doppler study. Since this is a rather young patient and does have multiple risk for cardiovascular comorbidity i would recommend LYN via cardiology, if CTA of neck and brain showed no significant pathology to explain the source of emboli. If CTA of brain and neck returns negative then LYN will be considered and the patient should start heparin drip, stroke protocol while stroke work up is being completed. Please continue medical and supportive care Qualifiers: CVA mechanism: embolism Precerebral and cerebral artery: carotid artery Laterality of affected vessel: left Qualified Code(s): I63.132 - Cerebral infarction due to embolism of left carotid artery History of Present Illness Chief complaint: speech difficulty HPI: Mr. Castellon is a 51 year old male with PMH significant for morbid obesity, RASHAWN, HTN, COPD who developed acute onset of speech difficulty and right arm shaking. This occurred yesterday. He suddenly experienced right arm/hand involuntary shaking for few seconds and right after the hand shaking he developed difficulty speaking. No significant weakness or paresthesia just difficulty with his words. He was evaluated in the ER about 6 hours after the onset of symptoms and also his speech were improving so he was not considered tPA candidate. MR/MR head/brain wo con IMPRESSION: 1. There are acute infarcts noted in the left frontal, left parietal, and medial left frontoparietal regions in the vascular distributions of the left middle and left anterior cerebral arteries. This is concerning for a proximal embolic source, potentially in the left internal or left common carotid artery. Dedicated CTA of the head and neck may be of benefit forfurther evaluation. Patient currently denies significant discomforts. No significant focal weakness. Speech improved and language content appears intact. He mentions that he was admitted to hospital for pneumonia about two weeks ago. Was treated with antibiotics and had some breathing treatment. Does have RASHAWN but not compliant with CPAP therapy. Past Med Surg Social Fam HX - Past Medical History Medical history: COPD, kidney stones Psychiatric history: anxiety, depression - Past Surgical History Surgical History: orthopedic, other (shoulder surgery bilaterally) - Social History Smoking Status: Current every day smoker Packs per day: 1 Smokeless Tobacco Status: No Alcohol use: none Drug use: none - Family History Father History Unknown: Yes Mother History Unknown: Yes Hx Family Cancer: Yes Medications and Allergies FLUoxetine HCl [Prozac] 20 mg PO DAILY 01/09/17 [History] Gabapentin [Neurontin] 300 mg PO HS 01/09/17 [History] Ibuprofen [Motrin] 800 mg PO Q6-8H PRN 01/09/17 [History] Budesonide/Formoterol 160/4.5 [Symbicort 160/4.5] 2 puff IH BIDR #1 inhaler [Rx] Furosemide [Lasix] 20 mg PO BID #60 tablet 01/15/17 [Rx] Potassium Chloride 20 meq PO DAILY #30 tab.er.prt 01/15/17 [Rx] predniSONE [PredniSONE] See Taper PO DAILY #74 tablet 01/15/17 [Rx] Albuterol Sulfate [Albuterol Inhaler] 2 puff IH Q4HR PRN 02/03/17 [History] Ipratropium/Albuterol Neb [Duoneb] 3 ml IH Q6HR 02/03/17 [History] Multivitamin [Multi-Day Vitamins] 1 each PO DAILY 02/03/17 [History] Allergies No Known Allergies Allergy (Verified 01/09/17 09:02) All Systems: A 10-system review of systems was performed and is negative for pertinent findings except as documented above in the HPI. Physical Examination - Vital Signs Vital Signs: Initial Vital Signs Temp Pulse Resp BP Pulse Ox 98.9 F 113 18 175/92 89 02/03/17 19:43 02/03/17 19:43 02/03/17 19:43 02/03/17 19:43 02/03/17 19:43 - Constitutional General appearance: comfortable - Neurologic Sensorimotor examination: intact Detailed motor examination: grossly full strength in all extremities Motor examination - right side: 5/5: deltoids, biceps, triceps, wrist flexion, wrist extension, armhole baster jumpbasting, hip flexors, tibialis Anterior, quadriceps, toe extension (EHL), plantarflexion Motor examination - left side: 5/5: deltoids, biceps, triceps, wrist flexion, wrist extension, hip flexors, armhole baster jumpbasting, quadriceps, tibialis Anterior, toe extension (EHL), plantarflexion Detailed sensory examination: intact Reflex and gait examination: intact Reflexes: Biceps: 1+, Triceps: 1+, Brachioradialis: 1+, Patella: 1+, Achilles: 1 + Mental Status Examination: awake, alert, oriented to person, oriented to place, oriented to time, follows commands appropriately, answers questions appropriately, no agnosia, no aphasia, no aproxia Cranial nerve examination: PERRL, EOMI, visual campbell intact, corneal reflexes brisk symmetrically, sensory to face intact, mastication intact, no facial asymmetry is present, no dysarthria, hearing is intact symmetrically, soft palate elevates bilaterally upon phonation, gag reflex intact, flexes SCM and trapezius muscles symmetrically with full power, tongue protrudes midline, no atrophy or facial fasiculations present Cerebellar examination: no dysmetria Results - Laboratory Findings CBC and BMP: 02/04/17 04:17 02/04/17 04:17 Abnormal lab findings: Abnormal lab results RBC 5.72 M/mcL (4.19-5.50) H 02/04/17 04:17 Hct 51.3 % (37.5-50.1) H 02/04/17 04:17 MCHC 31.4 g/dL (31.6-35.5) L 02/04/17 04:17 VBG pCO2 62 mmHg (41-51) H 02/03/17 20:28 VBG HCO3 38.4 mEq/L (21-27) H 02/03/17 20:28 Potassium 4.7 mEq/L (3.5-4.5) H 02/04/17 04:17 Glucose 237 mg/dL (70-99) H 02/04/17 04:17 POC Glucose 122 (58-89) H 02/03/17 20:21 AST 36 Units/L (5-34) H 02/04/17 04:17 ALT 71 Units/L (0-55) H 02/04/17 04:17 Globulin 3.7 g/dL (2.4-3.5) H 02/04/17 04:17 Albumin/Globulin Ratio 1.0 (1.1-2.2) L 02/04/17 04:17 Consult Discharge Plan - Plan Referrals: NO,PCP [Non-Partnered Physician] -
--- NOTE | 2017-02-04 16:59 | Event Note ---
Date of Encounter: 02/04/17 Time of Encounter: 13:30 Patient seen and examined. On examination, patient resting supine in bed currently undergoing his echocardiogram. Patient denies chest pain or shortness of breath at this time. Patient stating he is very upset and would like to go home. He states that he is exhausted from all of the testing. He complains of his chronic back pain and chronic sciatica pain. His is at the bedside and she has multiple questions on his his results so far and on the plan of care. Chest x-ray unremarkable for acute processes. Head CT negative. MRI revealing several acute infarcts to the left frontal, left parietal, left medial frontoparietal regions with vascular distributions of left middle and left anterior cerebral arteries. Suspect embolic source that is undiscovered at this time. CTA of head and neck was obtained which was unremarkable for acute processes. Carotid ultrasound unremarkable. Echocardiogram is still pending. Per neurology recommendations, if echocardiogram is normal, we will start the patient on a heparin drip and will await for a transesophageal echocardiogram on Monday. Patient and his have been updated on the plan of care and the patient is very upset stating that he may leave AMA. Importance of finding the source and preventing further strokes stressed with the patient and his . Patient has no focal neurological weaknesses. His speech is intelligible. At times, he says incorrect words but he is aware of it and is able to correct himself when he finds the correct word. He has obstructive sleep apnea but has not been wearing his CPAP. His states that she makes him sleep on his side and states that he does relatively well. Mild leukocytosis resolved, no source of an infection, suspect stress related. Patient strongly encouraged to stay for the remainder of testing and remainder of the workup. We will continue to address his chronic pain and they continue to encourage him to stay. Awaiting echocardiogram results. ITS Impressions Chest X-Ray 02/03/17 20:19 IMPRESSION: Unchanged chest radiograph, with persistent low lung volumes, stable mild cardiomegaly and mild vascular congestion. Otherwise no acute consolidation. D/ / 02/03/2017 21:14:38 Naveed Younger MD / wade Interpreting Provider: Naveed Younger MD Head CT 07/14/17 20:19 IMPRESSION: Small hypodense area in the left parietal lobe, which is nonspecific, but could represent sequela of old trauma or infarct. Otherwise no acute findings. D/ / 02/03/2017 20:55:00 Naveed Younger MD / wade Interpreting Provider: Naveed Younger MD Brain MRI 02/04/17 01:01 IMPRESSION: 1. There are acute infarcts noted in the left frontal, left parietal, and medial left frontoparietal regions in the vascular distributions of the left middle and left anterior cerebral arteries. This is concerning for a proximal embolic source, potentially in the left internal or left common carotid artery. Dedicated CTA of the head and neck may be of benefit for further evaluation. D/ / 02/04/2017 08:43:06 Mark Layne MD / betsy Interpreting Provider: Mark Layne MD Head CTA 02/04/17 10:00 IMPRESSION: 1. The study is somewhat limited by the patient's large body habitus and beam attenuation artifact, as well as motion artifact in the CTA of the neck portion. There is no gross stenosis or dissection identified in the neck. 2. Unremarkable CTA of the brain. D/ : / 02/04/2017 11:04:52 Mark Layne MD / betsy Interpreting Provider: Mark Layne MD Neck CTA 02/04/17 10:00 IMPRESSION: 1. The study is somewhat limited by the patient's large body habitus and beam attenuation artifact, as well as motion artifact in the CTA of the neck portion. There is no gross stenosis or dissection identified in the neck. 2. Unremarkable CTA of the brain. D/ /04/2017 11:04:52 Mark Layne MD / betsy Interpreting Provider: Mark Layne MD 02/04/17 13:59 - Vascular Preliminary by Yovanny Ray Acct Num: [id number] : 1965 Patient Age: 51 carotid doppler - mild Nonstenotic plaque bilateral bifurcations
[2017-02-04] MEDS: FLUoxetine 20 MG CAPSULE PO SCH (17:52)
[2017-02-04] MEDS: Furosemide 20 MG TABLET PO SCH (17:53)
[2017-02-04] MEDS: Gabapentin 300 MG CAPSULE PO SCH ×2 (17:58→21:23)
[2017-02-04 20:38] LABS: Bilirubin,Urine Negative (Negative); Blood,Urine Negative (Negative); Clarity,Urine Clear (Clear); Color,Urine Yellow (Yellow); Glucose,Urine (UA) Normal (Normal); Ketones,Urine Negative (Negative); Leukocyte Esterase,Urine Negative (Negative); Nitrite,Urine Negative (Negative); PH,Urine 5.5 pH Units (5.0-8.0); Protein,Urine Negative (Neg-Trace); Specific Gravity,Urine 1.021 (1.010-1.025); Urobilinogen,Urine Normal (Normal)
[2017-02-04] MEDS: Ibuprofen 800 MG TABLET PO PRN (21:22)
[2017-02-05] MEDS: *HR* Heparin 5,000 UNIT/ML VIAL SQ SCH (06:13)
[2017-02-05] MEDS: Budesonide/Formoterol 160/4.5 MDI IH SCH ×2 (08:13→22:39)
[2017-02-05] MEDS: FLUoxetine 20 MG CAPSULE PO SCH (08:30)
[2017-02-05] MEDS: Aspirin 81 MG TAB.CHEW PO SCH (08:30)
[2017-02-05] MEDS: Multivit/Ca/Min/Fe/FA 1 TAB TABLET PO SCH (08:30)
[2017-02-05] MEDS: Gabapentin 300 MG CAPSULE PO SCH ×3 (08:30→21:09)
[2017-02-05] MEDS: Furosemide 20 MG TABLET PO SCH ×2 (08:30→17:26)
--- NOTE | 2017-02-05 12:02 | Neurology Progress Note ---
Date of Encounter: 02/05/17 Time of Encounter: 12:00 Assessment and Plan (1) CVA (cerebral vascular accident) Current Visit: Yes Status: Acute Patient has another right hand shaking episodes lasting few seconds, since it was concerned that he may developed embolic events we will start him on Heparin drip, via stroke protocol, no initial bolus, with PTT goal 60-90. Will obtain LYN. As the same time, treat medical conditions such as RASHAWN and underlying hypoxemia. DVT prophylaxis. if new neurological symptoms occur, will consider repeat MRI of brain without contrast. Please continue medical and supportive care. If LYN returns negative for source of emboli then will discontinue heparin drip and continue on antiplatelet therapy Qualifiers: CVA mechanism: embolism Precerebral and cerebral artery: carotid artery Laterality of affected vessel: left Qualified Code(s): I63.132 - Cerebral infarction due to embolism of left carotid artery Subjective Principal diagnosis: CVA Interval history: Patient seen and examined. reports that last night the patient had few right hand shaking, just like when it occurred prior to hospital admission when at home. No other new neurological complaints. Feels really tired. tries to have him sleep on the side to reduce sleep apnea. mentions incidences in the past that his pulse oximtry would drop, this was attributed to him having pneumonia. Patient today reports that he feels really tired. Patient completed TTE, no significant pathology identified. quality of TTE poor due to body habitus Objective - Constitutional Vitals: Temp Pulse Resp BP Pulse Ox 98.1 F 81 16 131/74 96 02/05/17 11:00 02/05/17 11:00 02/05/17 11:00 02/05/17 11:00 02/05/17 11:00 - Neurological Exam Sensorimotor examination: Present: intact Motor Examination: Present: grossly full strength in all extremities Motor examination - right side: 5/5: deltoids, biceps, triceps, wrist flexion, wrist extension, soa integration architect, hip flexors, tibialis Anterior, quadriceps, toe extension (EHL), plantarflexion Motor examination - left side: 5/5: deltoids, biceps, triceps, wrist flexion, wrist extension, hip flexors, soa integration architect, quadriceps, tibialis Anterior, toe extension (EHL), plantarflexion Sensation intact: Present: intact Reflex and gait examination: intact Mental Status Examination: Present: oriented to person, oriented to place, oriented to time, follows commands appropriately, answers questions appropriately, no agnosia, no aphasia, no aproxia, drowsy (Drowsy but easilty arousable. ) Cranial nerve examination: Present: PERRL, EOMI, visual campbell intact, corneal reflexes brisk symmetrically, sensory to face intact, mastication intact, no facial asymmetry is present, no dysarthria, hearing is intact symmetrically, soft palate elevates bilaterally upon phonation, gag reflex intact, flexes SCM and trapezius muscles symmetrically with full power, tongue protrudes midline, no atrophy or facial fasiculations present Cerebellar examination: Present: no dysmetria Results - Laboratory Findings CBC and BMP: 02/04/17 04:17 02/04/17 04:17 Abnormal lab findings: Abnormal lab results RBC 5.72 M/mcL (4.19-5.50) H 02/04/17 04:17 Hct 51.3 % (37.5-50.1) H 02/04/17 04:17 MCHC 31.4 g/dL (31.6-35.5) L 02/04/17 04:17 VBG pCO2 62 mmHg (41-51) H 02/03/17 20:28 VBG HCO3 38.4 mEq/L (21-27) H 02/03/17 20:28 Potassium 4.7 mEq/L (3.5-4.5) H 02/04/17 04:17 Glucose 237 mg/dL (70-99) H 02/04/17 04:17 POC Glucose 122 (58-89) H 02/03/17 20:21 AST 36 Units/L (5-34) H 02/04/17 04:17 ALT 71 Units/L (0-55) H 02/04/17 04:17 Globulin 3.7 g/dL (2.4-3.5) H 02/04/17 04:17 Albumin/Globulin Ratio 1.0 (1.1-2.2) L 02/04/17 04:17 Consult Discharge Plan - Plan Referrals: NO,PCP [Non-Partnered Physician] -
[2017-02-05] MEDS: Heparin 25,000 UNIT/500 ML D5W 25,000 UNIT/500 ML MLS IVC SCH ×2 (13:18→23:53)
[2017-02-05 14:22] LABS: Hematocrit 49.2 % (37.5-50.1); Hemoglobin 15.1 g/dL (12.9-16.9); Mean Corpuscular HGB Conc 30.7 g/dL (31.6-35.5); Mean Corpuscular Hemoglobin 28.2 pg (28.0-33.3); Mean Platelet Volume 10.3 fL (9.4-12.4); Platelet Count 190 K/mcL (140-400); Red Blood Count 5.35 M/mcL (4.19-5.50)
[2017-02-05 14:29] LABS: INR 1.1; Prothrombin Time 11.6 Seconds (9.4-12.1)
[2017-02-05] MEDS: *HR* OxyCODONE Immed Rel 5 MG TABLET PO PRN ×2 (14:53→21:09)
--- NOTE | 2017-02-05 16:30 | Internal Med Progress Note ---
Date of Encounter: 02/05/17 Time of Encounter: 11:00 - Assessment and plan (1) CVA (cerebral vascular accident) Current Visit: Yes Status: Acute Assessment and plan: Prior to the hospital, patient's right hand was shaking and he had expressive aphasia. His symptoms have improved greatly since admission. He continues to have mild expressive aphasia but it is minimal and he remains alert and oriented 3 and his speech is intelligible. Head CT with area of concern in the left parietal lobe. Brain MRI revealing 3 acute infarcts to the left frontal, left parietal, and medial left frontoparietal regions with vascular distribution of the left middle and the left anterior cerebral arteries. Concern is for possible embolic source. Head and neck CTA were limited by artifact but were unremarkable for acute processes. Echocardiogram unremarkable with preserved ejection fraction. Patient started to have symptoms again overnight with hand shaking and difficulty finding his words while he was speaking with his . He was started on a heparin drip per stroke protocol. Plan is for LYN tomorrow, will bring cardiology on board for procedure. Of note, patient and his son at the bedside state that they have a family history of "never bleeding." They state that even with severe injuries, that neither the patient nor his son would bleed. Concern for possible hypercoagulable issue-will initiate the workup when he is here in the hospital and have him follow up outpatient with neurologist Dr. Cutler for further evaluation. Carotid ultrasound unremarkable. Urinalysis negative. Mild leukocytosis resolved-likely stress related, no signs of active infections. Lower extremity Dopplers are pending. Neurology and speech therapy are also on board. No consultation to OT or PT at this time given that the patient has no focal neurological weaknesses. ITS Impressions Head CT 02/03/17 20:19 IMPRESSION: Small hypodense area in the left parietal lobe, which is nonspecific, but could represent sequela of subacute to chronic infarct. Otherwise no acute findings. D/ / 02/03/2017 20:55:00 Naveed Younger MD / wade Interpreting Provider: Naveed Younger MD Brain MRI 02/04/17 01:01 IMPRESSION: 1. There are acute infarcts noted in the left frontal, left parietal, and medial left frontoparietal regions in the vascular distributions of the left middle and left anterior cerebral arteries. This is concerning for a proximal embolic source, potentially in the left internal or left common carotid artery. Dedicated CTA of the head and neck may be of benefit for further evaluation. D/ / 02/04/2017 08:43:06 Mark Layne MD / betsy Interpreting Provider: Mark Layne MD Head CTA 02/04/17 10:00 IMPRESSION: 1. The study is somewhat limited by the patient's large body habitus and beam attenuation artifact, as well as motion artifact in the CTA of the neck portion. There is no gross stenosis or dissection identified in the neck. 2. Unremarkable CTA of the brain. D/ / 02/04/2017 11:04:52 Mark Layne MD / betsy Interpreting Provider: Mark Layne MD Neck CTA 02/04/17 10:00 IMPRESSION: 1. The study is somewhat limited by the patient's large body habitus and beam attenuation artifact, as well as motion artifact in the CTA of the neck portion. There is no gross stenosis or dissection identified in the neck. 2. Unremarkable CTA of the brain. D/ / 02/04/2017 11:04:52 Mark Layne MD / betsy Interpreting Provider: Mark Layne MD Echo with saline contrast impressions: Interatrial septum not well evaluated, no obvious PFO seen with agitated saline but poor quality study due to habitus. Recommended elective outpatient LYN if cryptogenic stroke continues to be a concern. LVEF is grossly normal. Mild concentric left ventricular hypertrophy. Qualifiers: CVA mechanism: embolism Precerebral and cerebral artery: carotid artery Laterality of affected vessel: left Qualified Code(s): I63.132 - Cerebral infarction due to embolism of left carotid artery (2) Hypercoagulable state Current Visit: Yes Status: Suspected Assessment and plan: Will initiate part of the workup while he is admitted now for follow-up outpatient with neurologist Dr. Cutler for further evaluation. (3) Broca's dysphasia Current Visit: Yes Status: Acute Assessment and plan: Improving (4) COPD (chronic obstructive pulmonary disease) Current Visit: Yes Status: Chronic Assessment and plan: No acute exacerbation. Patient denies shortness of breath above his norm. Chest x-ray with persistent low lung volumes and mild vascular congestion suspect obesity hypoventilation syndrome. We will add incentive spirometry. CT negative. Of note, patient's states that he has not been officially diagnosed with COPD and states that he has an appointment this coming Monday for outpatient PFTs. ITS Impressions Chest X-Ray 02/03/17 20:19 IMPRESSION: Unchanged chest radiograph, with persistent low lung volumes, stable mild cardiomegaly and mild vascular congestion. Otherwise no acute consolidation. D/ / 02/03/2017 21:14:38 Naveed Younger MD / wade Interpreting Provider: Naveed Younger MD Chest CT 02/05/17 11:51 IMPRESSION: No acute process D/ / Mamadou Hendricks MD / Mamadou Hendricks MD Interpreting Provider: Mamadou Hendricks MD Qualifiers: COPD type: unspecified COPD Qualified Code(s): J44.9 - Chronic obstructive pulmonary disease, unspecified (5) Acute respiratory failure Current Visit: No Status: Acute Assessment and plan: Currently on supplemental oxygenation but more for his comfort. Patient denies shortness of breath above his norm. Qualifiers: Respiratory failure complication: hypoxia Qualified Code(s): J96.01 - Acute respiratory failure with hypoxia (6) RASHAWN (obstructive sleep apnea) Current Visit: Yes Status: Chronic Assessment and plan: Chronic. Patient has a CPAP at home but does not wear it. He states that he will wear the second he falls asleep he will repeat the mask off. His states that she makes him sleep on his side. We will order while he is admitted and encourage him to use it. (7) Anxiety Current Visit: No Status: Chronic Assessment and plan: Home Prozac continued. (8) (HFpEF) heart failure with preserved ejection fraction Current Visit: No Status: Chronic Assessment and plan: Acute on chronic and does not appear to be an acute exacerbation. Trace, nonpitting pedal edema noted. Patient denies shortness of breath above his norm. Continue fluid restricted diet and home dosing of his furosemide. (9) Tobacco use Current Visit: Yes Status: Chronic Assessment and plan: Patient declines smoking cessation counseling at this time, declines nicotine patch. (10) DVT prophylaxis Current Visit: No Status: Acute Assessment and plan: Was on subcutaneous heparin, now on heparin drip (11) Morbid obesity with BMI of 50.0-59.9, adult Current Visit: No Status: Chronic - Subjective Interval history: Patient seen and examined. On examination, patient resting in high Gallegos's. Patient currently denies pain or shortness of breath above his norm. His is at the bedside and is concerned because last night, the patient's right hand started to shake again which was the same symptom he had that brought him to the hospital. She was also concerned that earlier in the morning, he started to have trouble finding his words. Patient stating he is eating well and again states that he wants to go home. - Constitutional Vitals: Temp Pulse Resp BP Pulse Ox 98.2 F 85 16 155/83 96 02/05/17 12:01 02/05/17 12:01 02/05/17 11:00 02/05/17 12:01 02/05/17 12:01 General appearance: Present: cooperative, A&O X 3, morbidly obese, pleasant, no acute distress, answers questions appropriately - Head Head exam: Present: atraumatic, normocephalic - Eye Eye exam: Present: PERRL, conjuntiva pink, sclera anicteric Pupils: Present: PERRL - Neck Neck exam general surgery: Present: supple, trachea midline. Absent: lymphadenopathy - Respiratory Respiratory exam: Present: accessory muscle use, decreased breath sounds. Absent: rales, respiratory distress, rhonchi, wheezes - Cardiovascular Cardiovascular exam: Present: RRR, +S1, +S2. Absent: diastolic murmur, gallop, rubs, systolic murmur - GI/Abdominal GI/Abdominal exam: Present: distended, normal bowel sounds, soft, no peritoneal signs. Absent: tenderness - Extremities Exam Extremities exam: Present: warm, radial pulses palpable and symetrical. Absent : calf tenderness, cyanotic, pedal edema - Neurological Exam Neurological exam: Present: alert, CN II-XII intact, oriented X3, no focal deficits, strengths equal and symetr throughout. Absent: pronater drift, facial droop, speech deficit - Expanded Neurological Exam Neurological exam expanded: Present: protecting the airway Patient oriented to: Present: person, place, time Speech: Present: expressive aphasia (mild and infrequent), fluid speech Cranial Nerves: EOM's intact PM: Normal Neuro motor strength exam: LUE: 5, RUE: 5, LLE: 5, RLE: 5 Coma Scale Eye Opening: Spontaneous Coma Scale Motor Response: Obeys Commands Coma Scale Verbal Response: Oriented Coma Scale Total: 15 - Skin Skin exam: Present: dry, intact, pallor, warm Internal Medicine: Result - Labs CBC & Chem 7: 02/05/17 14:08 02/04/17 04:17 Labs: Short CBC 02/05/17 Range/Units 14:08 WBC 9.2 (4.3-11.1) K/mcL Hgb 15.1 (12.9-16.9) g/dL Hct 49.2 (37.5-50.1) % Plt Count 190 (140-400) K/mcL Urine 02/04/17 Range/Units 20:30 Urine Color Yellow (Yellow) Urine Clarity Clear (Clear) Urine pH 5.5 (5.0-8.0) pH Units Ur Specific [place] 1.021 (1.010-1.025) Urine Protein Negative (Neg-Trace) mg/dL Urine Glucose (UA) Normal (Normal) mg/dL - ABG Interpretation ABG results: PT/INR, D-dimer PT 11.6 Seconds (9.4-12.1) 02/05/17 14:08 - Impressions Impressions Chest CT 02/05/17 11:51 IMPRESSION: No acute process D/ / Mamadou Hendricks MD / Mamadou Hendricks MD Interpreting Provider: Mamadou Hendricks MD Consult Discharge Plan - Plan Referrals: NO,PCP [Non-Partnered Physician] -
[2017-02-05] MEDS: Ibuprofen 800 MG TABLET PO PRN (19:41)
--- NOTE | 2017-02-06 06:25 | Carotid Imaging Report ---
Carotid Duplex Patient Name:Dimitris Castellon Order Number:[id number] Procedure Date:02/04/2017 Date:1965Age:51 yrs Gender:Male Rt.BP:152 / 80 mmHgHeart Rate: Location:[facility] Room #: 31 Operator Helper:Dayana Ray RVT Referring MD:Pascual Magana MD fender mechanic apprentice:Sherman Mccall MD Reading MD:Piyush Silveira MD Primary Indications:Stroke Risk Factors Yes/No Smoking Current Yes Hx of CVA Yes Impressions: The bilateral carotid arteries have minimal plaque throughout. Findings Carotid Duplex: Right: There is nonstenotic plaque in the right bifurcation. There is smooth heterogeneous plaque. There is nonstenotic plaque in the right eca. There is smooth heterogeneous plaque. Left: There is nonstenotic plaque in the left bifurcation. There is smooth homogeneous plaque. Prior Study: No prior study available for comparison. Carotid Results Right PSV EDV Assessment Proximal CCA 115 13 Normal Mid CCA 110 26 Normal Distal CCA 100 25 Normal Bifurcation 74 12 Non Stenotic Plaque Proximal ICA 67 21 Normal Mid ICA 73 19 Normal Distal ICA 96 35 Normal ECA 82 13 Non Stenotic Plaque Vertebral Artery 49 15 Antegrade Flow Left PSV EDV Assessment Proximal CCA 92 13 Normal Mid CCA 101 24 Normal Distal CCA 90 27 Normal Bifurcation 86 23 Non Stenotic Plaque Proximal ICA 91 28 Normal Mid ICA 64 25 Normal Distal ICA 98 44 Normal ECA 113 14 Normal Vertebral Artery 57 21 Antegrade Flow Ratio's Right ICA/CCA Ratio: 0.87 ICA/CCA Values: 96/110 Left ICA/CCA Ratio: 0.97 ICA/CCA Values: 98/101 Updated by Piyush Silveira MD on 02/06/2017 6:21:04 AM electronically signed on 02/06/2017 6:21:20 AM with status of Final
--- NOTE | 2017-02-06 09:32 | Cardiology Consult Note ---
Date of Encounter: 02/06/17 Time of Encounter: 09:00 Assessment and Plan (1) CVA (cerebral vascular accident) Current Visit: Yes Status: Acute Acute infarcts per brain MRI concerning for proximal embolic source, potentially in the left internal or left common carotid artery. No arrhythmia noted per telemetry review. Avg HR=[address] Shah; recommend obtaining MRA head/neck to further evaluate left carotids given brain MRI findings. If source not confirmed on MRA head/neck, will then proceed with LYN on . LYN will need to be scheduled with anesthesia given body habitus and RASHAWN. Plan communicated with primary team. Will await MRA head/neck results prior to scheduling LYN. Qualifiers: CVA mechanism: embolism Precerebral and cerebral artery: carotid artery Laterality of affected vessel: left Qualified Code(s): I63.132 - Cerebral infarction due to embolism of left carotid artery Discussion w patient/family: The assessment and plan as outlined above was discussed with the patient and/or family members who expressed understanding and agreement. All questions were answered. Thank you for involving us in the care of your patient. Please call with any questions. The patient will be discussed and reviewed with Dr. Shah; changes to be made accordingly. History of Present Illness Consult date: 02/06/17 Requesting physician: Sadia Chicas Consult reason: CVA, possible cardioembolic source Chief complaint: abnormal speech History of present illness: Mr. Castellon is a 51 year old male with PMHx significant for COPD, RASHAWN, and tobacco use who presented to the ED on Monday after acute onset of confusion/ abnormal speech associated with right arm paresthesias and tremor of right hand at work. He states that symptoms improved initially, however recurred since admission which prompted initiation of heparin gtt per Neurology. Of note, patient states he was hospitalized at [facility] 2 weeks ago with double pneumonia. He was deemed not a candidate to received TPA per ED. Brain MRI showed multiple acute infarcts with potential source in the left carotid system. Head/neck CTA inconclusive due to body size and habits. Cardiology consulted for LYN. Recent CV testing: TTE 02/04/17: LVEF grossly normal, poor echo windows d/t body habitus BCU 02/04/17: bilateral carotid system has minimal plaque. Past Med Surg Social Fam HX - Past Medical History Attestation: Yes The following information was validated with the patient. Source: patient, old records reviewed Medical history: COPD, kidney stones, other (RASHAWN) Psychiatric history: anxiety, depression - Past Surgical History Surgical History: orthopedic, other (shoulder surgery bilaterally) - Social History Smoking Status: Current every day smoker Packs per day: 1 Smokeless Tobacco Status: No Alcohol use: none Drug use: none - Family History Father History Unknown: Yes Mother History Unknown: Yes Hx Family Cancer: Yes Medications and Allergies FLUoxetine HCl [Prozac] 20 mg PO DAILY 01/09/17 [History] Gabapentin [Neurontin] 300 mg PO HS 01/09/17 [History] Ibuprofen [Motrin] 800 mg PO Q6-8H PRN 01/09/17 [History] Budesonide/Formoterol 160/4.5 [Symbicort 160/4.5] 2 puff IH BIDR #1 inhaler [Rx] Furosemide [Lasix] 20 mg PO BID #60 tablet 01/15/17 [Rx] Potassium Chloride 20 meq PO DAILY #30 tab.er.prt 01/15/17 [Rx] predniSONE [PredniSONE] See Taper PO DAILY #74 tablet 01/15/17 [Rx] Albuterol Sulfate [Albuterol Inhaler] 2 puff IH Q4HR PRN 02/03/17 [History] Ipratropium/Albuterol Neb [Duoneb] 3 ml IH Q6HR 02/03/17 [History] Multivitamin [Multi-Day Vitamins] 1 each PO DAILY 02/03/17 [History] Allergies No Known Allergies Allergy (Verified 01/09/17 09:02) All Systems Review: A 10-system review of systems was performed and is negative for pertinent findings except as documented above in the HPI. - Cardiovascular Cardiovascular: as per HPI Physical Examination Vital Signs, Last 4 Hours Temp Pulse Resp BP Pulse Ox 02/06/17 07:06 98.3 F 83 16 137/80 97 General: Conversant, Other (morbidly obese) HEENT: Atraumatic, Normocephaly Cardiac: Reg Rate and Rhythm, Normal S1 and S2 Lungs: Normal Breath Sounds Neuro: Alert and responsive Abdomen: Soft, Other (obese) Skin: No rashes noted on visualized skin Musculoskeletal: No Chest Wall Tenderness Extremities: No Edema, Normal Pulses Results 02/05/17 14:08 02/04/17 04:17 Lab Results 02/05/17 02/05/17 02/05/17 14:08 14:08 14:08 WBC 9.2 Hgb 15.1 Hct 49.2 Plt Count 190 INR 1.1 APTT 44.6 H D 02/05/17 02/06/17 20:32 04:37 WBC Hgb Hct Plt Count INR APTT 104.6 H D 106.1 H - Imaging and Cardiology Chest Xray: report reviewed Echo: report reviewed Other Results: 12 hour tele: avg HR=75. No arrhythmia/dysrhythmia noted. - EKG Interpretation EKG results cardiology: personally reviewed Consult Discharge Plan - Plan Referrals: NO,PCP [Non-Partnered Physician] -
[2017-02-06] MEDS: Furosemide 20 MG TABLET PO SCH ×3 (09:42→17:22)
[2017-02-06] MEDS: Aspirin 81 MG TAB.CHEW PO SCH ×2 (09:42→10:18)
[2017-02-06] MEDS: Gabapentin 300 MG CAPSULE PO SCH ×4 (09:43→21:36)
[2017-02-06] MEDS: Multivit/Ca/Min/Fe/FA 1 TAB TABLET PO SCH ×2 (09:43→10:18)
[2017-02-06] MEDS: FLUoxetine 20 MG CAPSULE PO SCH ×2 (09:43→10:18)
--- NOTE | 2017-02-06 10:06 | Electrocardiograph Report ---
[place] [id number] Test Date: 2017-02-03 Pat Name: Dimitris Castellon Department: 102 Room: 3B Gender: M Beef Tagger: Sita : 1965 Requested By: Pascual Magana Order Number: [id number] Reading MD: Efe Espinal MD Measurements Intervals [place] Rate: 94 P: 38 CT: 170 QRS: 27 QRSD: 91 T: 52 QT: 345 QTc: 396 Interpretive Statements SINUS RHYTHM Electronically Signed On 02-06-2017 10:04:24 EDT by Efe Espinal MD
[2017-02-06] MEDS: Budesonide/Formoterol 160/4.5 MDI IH SCH ×2 (10:47→21:56)
[2017-02-06] MEDS: Heparin 25,000 UNIT/500 ML D5W 25,000 UNIT/500 ML MLS IVC SCH (13:26)
--- NOTE | 2017-02-06 14:24 | Internal Med Progress Note ---
Date of Encounter: 02/06/17 Time of Encounter: 10:30 - Assessment and plan (1) CVA (cerebral vascular accident) Current Visit: Yes Status: Acute Assessment and plan: Prior to the hospital, patient's right hand was shaking and he had expressive aphasia. His symptoms have improved greatly since admission. He continues to have mild expressive aphasia but it is minimal and he remains alert and oriented 3 and his speech is intelligible. Head CT with area of concern in the left parietal lobe. Brain MRI revealing 3 acute infarcts to the left frontal, left parietal, and medial left frontoparietal regions with vascular distribution of the left middle and the left anterior cerebral arteries. Concern is for possible embolic source. Head and neck CTA were limited by artifact but were unremarkable for acute processes. Echocardiogram unremarkable with preserved ejection fraction. Since admission, patient has had intermittent, bruief episodes of hand shaking and difficulty finding his words while speaking. He remains on a heparin drip per stroke protocol. Initial plan was for LYN today, however cardiology recommended head and neck MRAs prior to evaluate for carotid source of the emboli. If negative, plan is for LYN tomorrow. Of note, patient has outpatient PFTs in the am at 8am- he is still able to go to these in the am, then return back to his inpatient room. Also of note, patient and his son at the bedside state that they have a family history of "never bleeding." They state that even with severe injuries, that neither the patient nor his son would bleed. Concern for possible hypercoagulable issue-workup initiated and he will follow up outpatient with neurologist Dr. Cutler for further evaluation. Carotid ultrasound unremarkable. Urinalysis negative. Mild leukocytosis resolved-likely stress related, no signs of active infections. Lower extremity Dopplers are unremarkable. Neurology and speech therapy are also on board. Consultation to OT and PT placed at this time given as the patient endorses generalized weakness from laying in bed for days. He remains without focal neurological weaknesses. ITS Impressions Head CT 02/03/17 20:19 IMPRESSION: Small hypodense area in the left parietal lobe, which is nonspecific, but could represent sequela of subacute to chronic infarct. Otherwise no acute findings. D/ / 02/03/2017 20:55:00 Naveed Younger MD / wade Interpreting Provider: Naveed Younger MD Brain MRI 02/04/17 01:01 IMPRESSION: 1. There are acute infarcts noted in the left frontal, left parietal, and medial left frontoparietal regions in the vascular distributions of the left middle and left anterior cerebral arteries. This is concerning for a proximal embolic source, potentially in the left internal or left common carotid artery. Dedicated CTA of the head and neck may be of benefit for further evaluation. D/ / 02/04/2017 08:43:06 Mark Layne MD / betsy Interpreting Provider: Mark Layne MD Head CTA 02/04/17 10:00 IMPRESSION: 1. The study is somewhat limited by the patient's large body habitus and beam attenuation artifact, as well as motion artifact in the CTA of the neck portion. There is no gross stenosis or dissection identified in the neck. 2. Unremarkable CTA of the brain. D/ / 02/04/2017 11:04:52 Mark Layne MD / betsy Interpreting Provider: Mark Layne MD Neck CTA 02/04/17 10:00 IMPRESSION: 1. The study is somewhat limited by the patient's large body habitus and beam attenuation artifact, as well as motion artifact in the CTA of the neck portion. There is no gross stenosis or dissection identified in the neck. 2. Unremarkable CTA of the brain. D/ / 02/04/2017 11:04:52 Mark Layne MD / betsy Interpreting Provider: Mark Layne MD Echo with saline contrast impressions: Interatrial septum not well evaluated, no obvious PFO seen with agitated saline but poor quality study due to habitus. Recommended elective outpatient LYN if cryptogenic stroke continues to be a concern. LVEF is grossly normal. Mild concentric left ventricular hypertrophy. 02/04/17 13:59 - Vascular Preliminary by Yovanny Ray Acct Num: [id number] : 1965 Patient Age: 51 carotid doppler - mild Nonstenotic plaque bilateral bifurcations 02/06/17 09:52 - Vascular Preliminary by Nirmal Ramirez Acct Num: [id number] : 1965 Patient Age: 51 Preliminary report for bilateral lower extremity venous duplex is negative for DVT and SVT. Initialized on 02/06/17 09:52 - END OF NOTE Qualifiers: CVA mechanism: embolism Precerebral and cerebral artery: carotid artery Laterality of affected vessel: left Qualified Code(s): I63.132 - Cerebral infarction due to embolism of left carotid artery (2) Hypercoagulable state Current Visit: Yes Status: Suspected Assessment and plan: Workup initiated while he is admitted now for follow-up outpatient with neurologist Dr. Cutler for further evaluation. (3) Broca's dysphasia Current Visit: Yes Status: Acute Assessment and plan: Improving, continue speech therapy (4) COPD (chronic obstructive pulmonary disease) Current Visit: Yes Status: Chronic Assessment and plan: No acute exacerbation. Patient denies shortness of breath above his norm. Chest x-ray with persistent low lung volumes and mild vascular congestion suspect obesity hypoventilation syndrome. We will add incentive spirometry. CT negative. Of note, patient's states that he has not been officially diagnosed with COPD and states that he has an appointment TOMORROW for outpatient PFTs. Spoke to cardio-pulm who state that the patient can still come to his appointment tomorrow am at 0800- no breathing treatments, caffeine or nicotine 4 hours prior to test. ITS Impressions Chest X-Ray 02/03/17 20:19 IMPRESSION: Unchanged chest radiograph, with persistent low lung volumes, stable mild cardiomegaly and mild vascular congestion. Otherwise no acute consolidation. D/ / 02/03/2017 21:14:38 Naveed Younger MD / wade Interpreting Provider: Naveed Younger MD Chest CT 02/05/17 11:51 IMPRESSION: No acute process D/ / Mamadou Hendricks MD / Mamadou Hendricks MD Interpreting Provider: Mamadou Hendricks MD Qualifiers: COPD type: unspecified COPD Qualified Code(s): J44.9 - Chronic obstructive pulmonary disease, unspecified (5) Acute respiratory failure Current Visit: No Status: Acute Assessment and plan: Currently on supplemental oxygenation but more for his comfort. Patient denies shortness of breath above his norm. PFTs tomorrow. Qualifiers: Respiratory failure complication: hypoxia Qualified Code(s): J96.01 - Acute respiratory failure with hypoxia (6) RASHAWN (obstructive sleep apnea) Current Visit: Yes Status: Chronic Assessment and plan: Chronic. Patient has a CPAP at home but does not wear it. He states that he will wear the second he falls asleep he will repeat the mask off. His states that she makes him sleep on his side. He was able to tolerate it all night last night; will continue while admitted. (7) Anxiety Current Visit: No Status: Chronic Assessment and plan: Home Prozac continued. (8) (HFpEF) heart failure with preserved ejection fraction Current Visit: No Status: Chronic Assessment and plan: Acute on chronic and does not appear to be an acute exacerbation. Trace, nonpitting pedal edema noted. Patient denies shortness of breath above his norm. Continue fluid restricted diet and home dosing of his furosemide. (9) Tobacco use Current Visit: Yes Status: Chronic Assessment and plan: Patient declines smoking cessation counseling at this time, declines nicotine patch. (10) DVT prophylaxis Current Visit: No Status: Acute Assessment and plan: Was on subcutaneous heparin, now on heparin drip (11) Morbid obesity with BMI of 50.0-59.9, adult Current Visit: No Status: Chronic - Subjective Interval history: Patient seen and examined. On examination, patient resting in high Gallegos's. Patient currently denies pain or shortness of breath above his norm. He states that he wants to go home but understands why he is "stuck here" for the time being. He states he is eating well. He states that he was able to keep his CPAP mask on all night last night. - Constitutional Vitals: Temp Pulse Resp BP Pulse Ox 99.3 F 92 18 132/71 90 02/06/17 11:34 02/06/17 11:34 02/06/17 11:34 02/06/17 11:34 02/06/17 11:34 General appearance: Present: cooperative, A&O X 3, morbidly obese, pleasant, no acute distress, answers questions appropriately - Head Head exam: Present: atraumatic, normocephalic - Eye Eye exam: Present: PERRL, conjuntiva pink, sclera anicteric Pupils: Present: PERRL - Neck Neck exam general surgery: Present: supple, trachea midline. Absent: lymphadenopathy - Respiratory Respiratory exam: Present: decreased breath sounds. Absent: accessory muscle use, rales, respiratory distress, rhonchi, wheezes - Cardiovascular Cardiovascular exam: Present: RRR, +S1, +S2. Absent: diastolic murmur, gallop, rubs, systolic murmur - GI/Abdominal GI/Abdominal exam: Present: distended, normal bowel sounds, soft, no peritoneal signs. Absent: tenderness - Extremities Exam Extremities exam: Present: pedal edema (nonpitting), warm, radial pulses palpable and symetrical. Absent: calf tenderness, cyanotic - Neurological Exam Neurological exam: Present: alert, CN II-XII intact, oriented X3, no focal deficits, strengths equal and symetr throughout. Absent: pronater drift, facial droop, speech deficit - Expanded Neurological Exam Neurological exam expanded: Present: protecting the airway Patient oriented to: Present: person, place, time Speech: Present: expressive aphasia (brief episodes), fluid speech Neuro motor strength exam: LUE: 5, RUE: 5, LLE: 5, RLE: 5 Coma Scale Eye Opening: Spontaneous Coma Scale Motor Response: Obeys Commands Coma Scale Verbal Response: Oriented Coma Scale Total: 15 - Skin Skin exam: Present: dry, intact, pallor, warm Internal Medicine: Result - Labs CBC & Chem 7: 02/05/17 14:08 02/04/17 04:17 - ABG Interpretation ABG results: PT/INR, D-dimer PT 11.6 Seconds (9.4-12.1) 02/05/17 14:08 Consult Discharge Plan - Plan Referrals: NO,PCP [Non-Partnered Physician] -
[2017-02-06] MEDS ORDERED: *HR* LORazepam 2 MG/ML VIAL IVP ONE (16:00)
[2017-02-06] MEDS: *HR* OxyCODONE Immed Rel 5 MG TABLET PO PRN (21:36)
[2017-02-07 02:50] LABS: Basophils # 0.1 K/mcL (0.0-0.2); Basophils % 0.6 %; Eosinophils # 0.5 K/mcL (0.0-0.6); Eosinophils % 4.5 %; Hematocrit 48.9 % (37.5-50.1); Hemoglobin 15.1 g/dL (12.9-16.9); Lymphocytes # 2.5 K/mcL (0.6-4.6); Lymphocytes % 25.4 %; Mean Corpuscular HGB Conc 30.9 g/dL (31.6-35.5); Mean Corpuscular Hemoglobin 27.9 pg (28.0-33.3); Mean Corpuscular Volume 90.2 fL (83.0-100.0); Mean Platelet Volume 10.9 fL (9.4-12.4); Monocytes # 1.1 K/mcL (0.0-1.3); Monocytes % 10.8 %; Neutrophils # 5.8 K/mcL (1.6-8.9); Platelet Count 182 K/mcL (140-400); Red Blood Count 5.42 M/mcL (4.19-5.50); Red Cell Distribution Width 13.7 % (11.5-14.5); Segmented Neutrophils % 57.7 %
[2017-02-07 03:06] LABS: BUN/Creatinine Ratio 11 (6-26); Blood Urea Nitrogen 9 mg/dL (8-26); Calcium 8.9 mg/dL (8.6-10.8); Carbon Dioxide 37 mEq/L (19-29); Chloride 95 mEq/L (98-109); Glucose 154 mg/dL (70-99); Osmolality,Calculated 288 (280-300); Potassium 3.9 mEq/L (3.5-4.5); Sodium 138 mEq/L (136-145); eGFR For African Americans > 60 (> 60); eGFR For Non-African Americans > 60 (> 60)
[2017-02-07] MEDS: Heparin 25,000 UNIT/500 ML D5W 25,000 UNIT/500 ML MLS IVC SCH ×3 (03:35→20:13)
[2017-02-07] MEDS: Budesonide/Formoterol 160/4.5 MDI IH SCH ×2 (07:46→20:04)
--- NOTE | 2017-02-07 08:05 | Venous Imaging Report ---
LE Venous Duplex Patient Name:Dimitris Castellon Order Number:[id number] Procedure Date:02/06/2017 Date:1965Age:51 yrs Gender:Male Location:[facility] Room #: 3B31 Property Loss Insurance Claim Adjuster:Nirmal Ramirez RN Referring MD:Sadia Chicas KILN TRANSFER OPERATOR photovoltaic panel installer:Sherman Mccall MD Reading MD:Pj Celis MD , FACS Primary Indications:R/O DVT Secondary Indications: Risk Factors Yes/No Smoking Current Yes Anticoagulants No Previous Vascular Surgery No Hx of DVT No Hx of Chemotherapy No Trauma to Veins No Recent Surgery No Hx of Superficial Phlebitis No Impressions: Bilateral lower extremity: normal superficial and deep exam. Recommendations: Test completed on 02/06/2017 at 9:25:00 am. Findings Venous Duplex Results: Right: Venous imaging of the lower extremity reveals full patency and normal vessel compressibility of the right distal iliac, right common femoral, right superficial femoral, right popliteal, right posterior tibial, right peroneal, right great saphenous and right lesser saphenous. Doppler signals in the evaluated veins were normal. Left: Venous imaging of the lower extremity reveals full patency and normal vessel compressibility of the left distal iliac, left common femoral, left superficial femoral, left popliteal, left posterior tibial, left peroneal, left great saphenous and left lesser saphenous. Doppler signals in the evaluated veins were normal. Prior Study: No prior study available for comparison. Lower Extremity Venous Duplex Side Vein Compress Spontaneous Flow Augment Diameter (cm) Depth (cm) Right Distal Iliac Normal Yes Phasic Yes Right Common Femoral Normal Yes Phasic Yes Right Superficial Femoral Normal Yes Phasic Yes Right Popliteal Normal Yes Phasic Yes Right Posterior Tibial Normal Yes Phasic Yes Right Peroneal Normal Yes Phasic Yes Right Great Saphenous Normal Yes Phasic Yes Right Lesser Saphenous Normal Yes Phasic Yes Left Distal Iliac Normal Yes Phasic Yes Left Common Femoral Normal Yes Phasic Yes Left Superficial Femoral Normal Yes Phasic Yes Left Popliteal Normal Yes Phasic Yes Left Posterior Tibial Normal Yes Phasic Yes Left Peroneal Normal Yes Phasic Yes Left Great Saphenous Normal Yes Phasic Yes Left Lesser Saphenous Normal Yes Phasic Yes Updated by Pj Celis MD, FACS on 02/07/2017 7:59:51 AM Pj Celis MD electronically signed on 02/07/2017 8:00:18 AM with status of Final
--- NOTE | 2017-02-07 08:11 | Event Note ---
Date of Encounter: 02/07/17 Time of Encounter: 07:40 - Cardiology Event Note Head and neck MRA results reviewed--no significant findings. Will proceed with LYN with anesthesia today. Patient has been NPO after MN. Further recommendations pending results. Head MRA 02/06/17 09:07 IMPRESSION: Limited exam due to motion related artifact. No focal flow significant narrowing or aneurysm noted D/ / Piyush Hodge / Piyush Hodge Neck MRA 02/06/17 09:07 IMPRESSION: Severely limited examination secondary to motion artifact. The carotid and vertebral arteries are grossly patent. The CTA of the neck is a higher quality examination than the current MRA. D/ / 02/06/2017 17:45:22 Mark Layne MD / roland
[2017-02-07] MEDS: Gabapentin 300 MG CAPSULE PO SCH ×3 (09:54→20:38)
[2017-02-07] MEDS: Aspirin 81 MG TAB.CHEW PO SCH (09:54)
[2017-02-07] MEDS: Multivit/Ca/Min/Fe/FA 1 TAB TABLET PO SCH (09:54)
[2017-02-07] MEDS: Furosemide 20 MG TABLET PO SCH ×2 (09:54→15:54)
[2017-02-07] MEDS: FLUoxetine 20 MG CAPSULE PO SCH (09:54)
[2017-02-07] MEDS: *HR* OxyCODONE Immed Rel 5 MG TABLET PO PRN ×2 (11:58→20:38)
[2017-02-07 15:17] LABS: Homocysteine 9 umol/L (<=10)
[2017-02-07] MEDS: *HR* HYDROcodone/Acet 5/325 mg TABLET PO PRN (15:54)
--- NOTE | 2017-02-07 16:36 | Neurology Progress Note ---
Date of Encounter: 02/07/17 Time of Encounter: 16:33 Assessment and Plan (1) CVA (cerebral vascular accident) Current Visit: Yes Status: Acute At this point it seems that the etiology of this left hemispheric cerebral infarct has not been clearly identified. CTA/MRA scans have been less than conclusive. Also transthoracic echocardiogram was not conclusive. Based on the location and distribution of the infarcts embolic phenomenon is highly suspect. I feel that aggressive measures should be taken to identify a specific cause before ruling this is a cryptogenic event. I would recommend consulting vascular to see whether or not they may be able to make a more definitive statement based on the available neuroimaging studies completed. If not, then I would recommend a traditional four-vessel cerebral angiogram. I will also recommend LYN which is scheduled for the morning. Also recommend hematology oncology evaluation as this patient is on a heparin drip yet his states that she saw blood clots in his IVs. At this time I see no further evidence of any new neurologic deficits, as his exam today is essentially normal. He is somewhat drowsy, however this may be secondary to undiagnosed sleep apnea, or medication effect. But in the face of equally reactive pupils and a non-focal neurologic exam I am not at this time concerned about deleterious effects of the infarct. I agree with anticoagulation until embolic, and prothrombotic states have been ruled out, at which point aspirin 81 mg daily would suffice. Qualifiers: CVA mechanism: embolism Precerebral and cerebral artery: carotid artery Laterality of affected vessel: left Qualified Code(s): I63.132 - Cerebral infarction due to embolism of left carotid artery Subjective Principal diagnosis: CVA Interval history: The chart was reviewed the patient was seen and examined. Case was discussed with Dr Cutler, as well as IM. Patient was admitted to [facility] on 02/03/2017 secondary to speech difficulty and right arm tremors. Ultimately MR scan of the brain revealed infarcts in the left frontal and left parietal and left medial frontoparietal lobe regions. His been somewhat challenging to identify the specific etiology of these apparent embolic infarcts. CTA scans of the brain and neck are essentially inconclusive as was MRA scans of the neck. Transthoracic echocardiogram was also inconclusive due to body habitus. The patient has been on a heparin drip in the event we are dealing with an embolic phenomenon, however his states to have seen a blood clotting in the IV tubes. There is also question earlier today of whether or not he had a slight left facial droop that has not been apparent previously. Objective - Constitutional Vitals: Temp Pulse Resp BP Pulse Ox 97.6 F 89 18 164/99 96 02/07/17 11:09 02/07/17 11:09 02/07/17 11:09 02/07/17 11:09 02/07/17 11:09 - Neurological Exam Sensorimotor examination: Present: intact Motor Examination: Present: grossly full strength in all extremities Motor examination - right side: 5/5: deltoids, biceps, triceps, wrist flexion, wrist extension, director of marketing, hip flexors, tibialis Anterior, quadriceps, toe extension (EHL), plantarflexion Motor examination - left side: 5/5: deltoids, biceps, triceps, wrist flexion, wrist extension, hip flexors, director of marketing, quadriceps, tibialis Anterior, toe extension (EHL), plantarflexion Sensation intact: Present: intact Reflex and gait examination: intact Mental Status Examination: Present: awake, oriented to person, oriented to place , oriented to time, follows commands appropriately, answers questions appropriately, no agnosia, no aphasia, no aproxia, drowsy (Drowsy but easilty arousable. ) Cranial nerve examination: Present: PERRL, EOMI, visual campbell intact, corneal reflexes brisk symmetrically, sensory to face intact, mastication intact, no facial asymmetry is present, no dysarthria, hearing is intact symmetrically, soft palate elevates bilaterally upon phonation, gag reflex intact, flexes SCM and trapezius muscles symmetrically with full power, tongue protrudes midline, no atrophy or facial fasiculations present Cerebellar examination: Present: no dysmetria Results - Laboratory Findings CBC and BMP: 02/07/17 01:53 02/07/17 01:53 Abnormal lab findings: Abnormal lab results MCH 27.9 pg (28.0-33.3) L 02/07/17 01:53 MCHC 30.9 g/dL (31.6-35.5) L 02/07/17 01:53 APTT 102.8 Seconds (26.0-36.0) H 02/07/17 10:05 VBG pCO2 62 mmHg (41-51) H 02/03/17 20:28 VBG HCO3 38.4 mEq/L (21-27) H 02/03/17 20:28 Chloride 95 mEq/L (98-109) L 02/07/17 01:53 Carbon Dioxide 37 mEq/L (19-29) H 02/07/17 01:53 Glucose 154 mg/dL (70-99) H 02/07/17 01:53 POC Glucose 122 (58-89) H 02/03/17 20:21 AST 36 Units/L (5-34) H 02/04/17 04:17 ALT 71 Units/L (0-55) H 02/04/17 04:17 Globulin 3.7 g/dL (2.4-3.5) H 02/04/17 04:17 Albumin/Globulin Ratio 1.0 (1.1-2.2) L 02/04/17 04:17 Consult Discharge Plan - Plan Referrals: NO,PCP [Non-Partnered Physician] -
--- NOTE | 2017-02-07 16:48 | Internal Med Progress Note ---
Date of Encounter: 02/07/17 Time of Encounter: 09:30 - Assessment and plan (1) CVA (cerebral vascular accident) Current Visit: Yes Status: Acute Assessment and plan: Patient appears to be greatly improved over prior assessments. He is neurologically intact, speech is clear, he follows commands, he has no aphasia or dysphasia. He did have subtle left droop of mouth that both and primary nurse said are new today. He has been seen by neurology who have recommended that he be followed by hematology oncology and vascular surgery. Both of those have already been consulted. She is being evaluated for hypercoagulable state. Labs have been drawn and are pending. White states that she saw tubes with clots, lab staff said they had difficulty getting blood that was not clotted. Both patient and son state that even when they have a rather severe injury, they do not bleed. Patient will have LYN tomorrow by cardiology. No one from anesthesia is available to help due to patient size until the morning at 9 AM. Carotid Dopplers are unremarkable, and head and neck CTAs and MRAs have all been inconclusive. Occupational therapy, neurology, physical therapy are on board. His goal therapy consultation still pending. Patient was very drowsy during exam, it was difficult to ascertain whether it was due to undiagnosed sleep apnea or neurological deficit. As the day wore on, patient was more alert and was able to speak with Dr. Morrow this afternoon. He is no longer drowsy and is alert and awake. We will continue to monitor, continue heparin drip, continue telemetry, appreciate recommendations of hematology oncology and vascular surgery, as well as neurology. We will also wait for LYN in the morning and cardiology's input. Head CT 02/03/17 20:19 IMPRESSION: Small hypodense area in the left parietal lobe, which is nonspecific, but could represent sequela of subacute to chronic infarct. Otherwise no acute findings. D/ / 02/03/2017 20:55:00 Naveed Younger MD / wade Interpreting Provider: Naveed Younger MD Brain MRI 02/04/17 01:01 IMPRESSION: 1. There are acute infarcts noted in the left frontal, left parietal, and medial left frontoparietal regions in the vascular distributions of the left middle and left anterior cerebral arteries. This is concerning for a proximal embolic source, potentially in the left internal or left common carotid artery. Dedicated CTA of the head and neck may be of benefit for further evaluation. D/ / 02/04/2017 08:43:06 Mark Layne MD / betsy Interpreting Provider: Mark Layne MD Head CTA 02/04/17 10:00 IMPRESSION: 1. The study is somewhat limited by the patient's large body habitus and beam attenuation artifact, as well as motion artifact in the CTA of the neck portion. There is no gross stenosis or dissection identified in the neck. 2. Unremarkable CTA of the brain. D/ / 02/04/2017 11:04:52 Mark Layne MD / betsy Interpreting Provider: Mark Layne MD Neck CTA 02/04/17 10:00 IMPRESSION: 1. The study is somewhat limited by the patient's large body habitus and beam attenuation artifact, as well as motion artifact in the CTA of the neck portion. There is no gross stenosis or dissection identified in the neck. 2. Unremarkable CTA of the brain. D/ / 02/04/2017 11:04:52 Mark Layne MD / betsy Interpreting Provider: Mark Layne MD Head MRA 02/06/17 09:07 IMPRESSION: Limited exam due to motion related artifact. No focal flow significant narrowing or aneurysm noted D/ / Piyush Hodge / Piyush Hodge Interpreting Provider: Piyush Hodge Neck MRA 02/06/17 09:07 IMPRESSION: Severely limited examination secondary to motion artifact. The carotid and vertebral arteries are grossly patent. The CTA of the neck is a higher quality examination than the current MRA. D/ / 02/06/2017 17:45:22 Mark Layne MD / roland Interpreting Provider: Mark Layne MD Qualifiers: CVA mechanism: embolism Precerebral and cerebral artery: carotid artery Laterality of affected vessel: left Qualified Code(s): I63.132 - Cerebral infarction due to embolism of left carotid artery (2) Broca's dysphasia Current Visit: Yes Status: Acute Assessment and plan: Patient's speech is clear and effortless at this time. He answered questions appropriately, there is no slurred speech, patient was not having difficulty finding words during an evaluation. states that he has been having difficulty finding words when she is interacting with him. He is continuing speech therapy. (3) COPD (chronic obstructive pulmonary disease) Current Visit: Yes Status: Chronic Assessment and plan: No acute exacerbation. Lungs are diminished with faint expiratory wheezing. He is in no distress and speaks easily in long sentences. Continue home medications and supportive treatment. ITS Impressions Chest X-Ray 02/03/17 20:19 IMPRESSION: Unchanged chest radiograph, with persistent low lung volumes, stable mild cardiomegaly and mild vascular congestion. Otherwise no acute consolidation. D/ / 02/03/2017 21:14:38 Naveed Younger MD / wade Interpreting Provider: Naveed Younger MD Chest CT 02/05/17 11:51 IMPRESSION: No acute process D/ / Mamadou Hendricks MD / Mamadou Hendricks MD Interpreting Provider: Mamadou Hendricks MD Qualifiers: COPD type: unspecified COPD Qualified Code(s): J44.9 - Chronic obstructive pulmonary disease, unspecified (4) RASHAWN (obstructive sleep apnea) Current Visit: Yes Status: Chronic Assessment and plan: Patient did overnight pulse ox for qualification for BiPAP at home. Will wait for note from respiratory. Patient was very drowsy today during assessment, was unable to keep his eyes open on a speed to me, could potentially be due to undiagnosed RASHAWN. Symptoms resolved to stay were drawn. Patient is now alert and awake. Will wait for recommendations. (5) Tobacco use Current Visit: Yes Status: Chronic Assessment and plan: Patient declines smoking cessation counseling at this time, declines nicotine patch. Continue to monitor for needs and strongly encouraged smoking cessation prior to discharge. (6) Hypercoagulable state Current Visit: Yes Status: Suspected Assessment and plan: Labs are drawn and pending. states that she saw clots in the blood tubes. Lab reports that they have difficulty obtaining adequate specimens due to clotting and tubes. Son also reports that even despite potentially severe injuries, and patient do not bleed. Multiple labs have been drawn and are pending. A motility oncology has been consulted. Patient is on a heparin drip. PTT remains elevated. Dosing per protocol. Has been seen by neurology, as well. (7) (HFpEF) heart failure with preserved ejection fraction Current Visit: No Status: Chronic Assessment and plan: No acute exacerbation. Minimal nonpitting edema to bilateral lower extremities noted. Did have wheezing, no rales. Continue fluid restriction diet and home dose of Lasix. Continue telemetry. (8) Morbid obesity with BMI of 50.0-59.9, adult Current Visit: No Status: Chronic Assessment and plan: Chronic. Lifestyle changes. (9) DVT prophylaxis Current Visit: No Status: Acute Assessment and plan: Patient is on heparin drip. Continue to monitor. - Time Spent With Patient less than 15 minutes - Subjective Interval history: Patient was seen and assessed at about 9:30 AM. Patient was somnolent during the exam. reports that he has been having trouble finding words since yesterday, she also states that patient called her on the bed while she was sitting in the chair next to him, asking where she was. She reports that he has been very forgetful, which is not like him. Patient was very drowsy, unable to keep his eyes open in between questions. He did have BiPAP last night as he was trying to qualify for having BiPAP at home. He has expiratory wheezing, is not in any respiratory distress and speaks easily in long sentences. He was neurologically intact and was able to follow commands, although he did have new subtle drooping right mouth. and nurse does state that was not present yesterday. Patient is being seen by neurology today. I have consulted hematology oncology for evaluation of hypercoagulable state, I have also consult with Dr. Silveira for evaluation for possible four- vessel angiogram. He was consulted per 's request. Patient will have LYN in the morning. - Constitutional Vitals: Temp Pulse Resp BP Pulse Ox 97.6 F 89 18 164/99 96 02/07/17 11:09 02/07/17 11:09 02/07/17 11:09 02/07/17 11:09 02/07/17 11:09 General appearance: Present: cooperative, A&O X 3, morbidly obese, pleasant, no acute distress, answers questions appropriately - Head Head exam: Present: normal inspection - Eye Eye exam: Present: normal appearance, conjuntiva pink - ENT ENT exam: Present: mucous membranes moist, normal external ear exam - Neck Neck exam general surgery: Present: normal inspection. Absent: lymphadenopathy , tenderness - Respiratory Respiratory exam: Present: rales, wheezes. Absent: decreased breath sounds, CTAB, respiratory distress, rhonchi - Cardiovascular Cardiovascular exam: Present: RRR, +S1, +S2. Absent: diastolic murmur, systolic murmur - GI/Abdominal GI/Abdominal exam: Present: normal bowel sounds, soft. Absent: firm, hepatomegaly, tenderness - Extremities Exam Extremities exam: Present: normal capillary refill, radial pulses palpable and symetrical. Absent: pedal edema, tenderness - Neurological Exam Neurological exam: Present: alert, oriented X3, no focal deficits, strengths equal and symetr throughout, facial droop. Absent: pronater drift, speech deficit - Psychiatric Psychiatric exam: Present: normal mood - Skin Skin exam: Present: dry, intact, normal color, warm. Absent: rash Internal Medicine: Result - Labs CBC & Chem 7: 02/07/17 01:53 02/07/17 01:53 Labs: Short CBC 02/07/17 Range/Units 01:53 WBC 10.0 (4.3-11.1) K/mcL Hgb 15.1 (12.9-16.9) g/dL Hct 48.9 (37.5-50.1) % Plt Count 182 (140-400) K/mcL Neutrophils # 5.8 (1.6-8.9) K/mcL [facility] 02/07/17 01:53 Sodium 138 Potassium 3.9 Chloride 95 L Carbon Dioxide 37 H BUN 9 Creatinine 0.81 Glucose 154 H Calcium 8.9 - ABG Interpretation ABG results: PT/INR, D-dimer PT 11.6 Seconds (9.4-12.1) 02/05/17 14:08 Consult Discharge Plan - Plan Referrals: NO,PCP [Non-Partnered Physician] -
[2017-02-07] MEDS: Nicotine 21 MG PATCH.TD24 TD SCH (18:44)
--- NOTE | 2017-02-07 19:22 | Anesthesia Evaluation PreOp ---
Date of Encounter: 02/07/17 Time of Encounter: 19:10 - Past History Planned Operation: LYN Cardiac History: Denies any Significant Hx Pulmonary History: Smoker, COPD, RASHAWN Dx (non compliant with CPAP) OPERATIONAL METEOROLOGIST History: Other (Expressive Aphasia on admission, MRI showed Left Cerebral infarct) Other Medical History: Other (Morbid Obesity) Anesthesia History: No Prior Anesthetic Complications Alcohol Use: none Drug use: none Medications and Allergies FLUoxetine HCl [Prozac] 20 mg PO DAILY 01/09/17 [History] Gabapentin [Neurontin] 300 mg PO HS 01/09/17 [History] Ibuprofen [Motrin] 800 mg PO Q6-8H PRN 01/09/17 [History] Budesonide/Formoterol 160/4.5 [Symbicort 160/4.5] 2 puff IH BIDR #1 inhaler [Rx] Furosemide [Lasix] 20 mg PO BID #60 tablet 01/15/17 [Rx] Potassium Chloride 20 meq PO DAILY #30 tab.er.prt 01/15/17 [Rx] predniSONE [PredniSONE] See Taper PO DAILY #74 tablet 01/15/17 [Rx] Albuterol Sulfate [Albuterol Inhaler] 2 puff IH Q4HR PRN 02/03/17 [History] Ipratropium/Albuterol Neb [Duoneb] 3 ml IH Q6HR 02/03/17 [History] Multivitamin [Multi-Day Vitamins] 1 each PO DAILY 02/03/17 [History] Allergies No Known Allergies Allergy (Verified 01/09/17 09:02) - Meds/Allergy Pre-op Review Medications Reviewed: Yes Allergies Reviewed: Yes Beta Blockers on Current Med List: No Anesthesia Results - Labs 02/07/17 01:53 02/07/17 01:53 - Imaging EKG: report reviewed (SR) Additional studies: LVEF grossly normal Anesthesia Exam O2 Sat Weight 168 kg O2 Sat by Pulse Oximetry 95 O2 Sat by Pulse Oximetry 96 O2 Sat by Pulse Oximetry 96 O2 Sat by Pulse Oximetry 90 O2 Sat by Pulse Oximetry 96 O2 Sat by Pulse Oximetry 96 O2 Sat by Pulse Oximetry 97 O2 Sat by Pulse Oximetry 93 O2 Sat by Pulse Oximetry 91 Vital Signs Temp Pulse Resp BP Pulse Ox 98.9 F 113 18 175/92 89 02/03/17 19:43 02/03/17 19:43 02/03/17 19:43 02/03/17 19:43 02/03/17 19:43 Height: 5'9 Weight: 370 lbs NPO (# of Hours): MN Pain Scale: 0 - HEENT Pupil (Motor): Pupils equal, EOMI Mallampati: III Oral Opening: Less than or equal to 3 - OPERATIONAL METEOROLOGIST LOC: Oriented OPERATIONAL METEOROLOGIST Motor: Normal RUE, Normal LUE, Normal RLE, Normal LLE, Normal Face OPERATIONAL METEOROLOGIST Sensory: Normal: RUE, LUE, RLE, LLE, Face - Cardiac Rhythm: Regular Murmur: None JVD: No Carotid Bruit: No - Pulmonary Breath Sounds: bilateral Clear Respiratory Effort: Symmetrical Anesthesia Assess/Plan ASA Score: 3 (MO RASHAWN COPD) Modified [place] Scale for Level of Consciousness: Cooperative, oriented, and tranquil Anesthetic Plan: MAC Monitoring Plan: Standard Monitors Recovery Plan: Other (Discussed MAC, possible GA in OR, agrees to proceed)
[2017-02-07] MEDS ORDERED: Nystatin Cream 15 GM TUBE TP SCH (21:00)
[2017-02-08] MEDS: Nystatin OINT 15 GM TUBE TP SCH ×4 (00:41→21:00)
[2017-02-08 02:08] LABS: Basophils % 0.4 %; Eosinophils # 0.5 K/mcL (0.0-0.6); Eosinophils % 4.3 %; Hematocrit 45.8 % (37.5-50.1); Hemoglobin 14.8 g/dL (12.9-16.9); Lymphocytes # 1.7 K/mcL (0.6-4.6); Lymphocytes % 15.1 %; Mean Corpuscular HGB Conc 32.3 g/dL (31.6-35.5); Mean Corpuscular Hemoglobin 29.1 pg (28.0-33.3); Mean Platelet Volume 11.4 fL (9.4-12.4); Monocytes # 0.9 K/mcL (0.0-1.3); Monocytes % 7.7 %; Neutrophils # 7.9 K/mcL (1.6-8.9); Platelet Count 162 K/mcL (140-400); Red Blood Count 5.09 M/mcL (4.19-5.50); Red Cell Distribution Width 13.6 % (11.5-14.5); Segmented Neutrophils % 71.5 %
[2017-02-08 02:14] LABS: BUN/Creatinine Ratio 11 (6-26); Blood Urea Nitrogen 9 mg/dL (8-26); Carbon Dioxide 33 mEq/L (19-29); Chloride 97 mEq/L (98-109); Glucose 206 mg/dL (70-99); Osmolality,Calculated 291 (280-300); Potassium 3.9 mEq/L (3.5-4.5); Sodium 138 mEq/L (136-145); eGFR For African Americans > 60 (> 60); eGFR For Non-African Americans > 60 (> 60)
[2017-02-08] MEDS: *HR* OxyCODONE Immed Rel 5 MG TABLET PO PRN ×2 (02:41→21:41)
[2017-02-08] MEDS: Heparin 25,000 UNIT/500 ML D5W 25,000 UNIT/500 ML MLS IVC SCH ×2 (06:51→20:47)
[2017-02-08 07:56] LABS: ANA IgG by ELISA NONE DETECTED (None Detected)
[2017-02-08] MEDS ORDERED: *HR* FentaNYL (PF) 100 MCG/2 ML VIAL ONE (08:08)
[2017-02-08] MEDS ORDERED: *HR* Propofol 200 MG/20 ML VIAL IVP ONE (08:08)
[2017-02-08] MEDS ORDERED: Ondansetron 4 MG/2 ML VIAL ONE (08:10)
[2017-02-08] MEDS ORDERED: Dexamethasone 4 MG/ML VIAL ONE (08:10)
[2017-02-08] MEDS ORDERED: *HR* Succinylcholine 200 MG/10 ML VIAL IVP ONE (08:10)
[2017-02-08] MEDS ORDERED: Lidocaine -MPF 2% 2 ML VIAL ONE (08:10)
[2017-02-08] MEDS ORDERED: *HR* Phenylephrine 10 MG/ML VIAL ONE (08:51)
[2017-02-08] MEDS: FLUoxetine 20 MG CAPSULE PO SCH (09:00)
[2017-02-08] MEDS: Nicotine 21 MG PATCH.TD24 TD SCH (09:00)
[2017-02-08] MEDS: Furosemide 20 MG TABLET PO SCH ×2 (09:00→17:34)
[2017-02-08] MEDS: Gabapentin 300 MG CAPSULE PO SCH ×3 (09:00→21:42)
[2017-02-08] MEDS: Aspirin 81 MG TAB.CHEW PO SCH (09:00)
[2017-02-08] MEDS: Multivit/Ca/Min/Fe/FA 1 TAB TABLET PO SCH (09:00)
[2017-02-08] MEDS: Budesonide/Formoterol 160/4.5 MDI IH SCH ×2 (10:35→20:23)
--- NOTE | 2017-02-08 11:01 | Anesthesia Evaluation Post Op ---
Date of Encounter: 02/08/17 Time of Encounter: 11:01 - Vital Signs Vital Signs: Vital Signs/O2 Sat, Most Current Temp Pulse Resp BP Pulse Ox 97.1 F L 87 16 146/83 94 02/08/17 10:33 02/08/17 10:53 02/08/17 10:53 02/08/17 10:53 02/08/17 10:53 - Lungs Lungs: Clear Ascult./Percussion - Airway Airway: Non-obstructed - Cardiovascular Regular Rate - Mental Status Mental Status: Alert & Oriented, Answers Appropriately - Pain Pain Scale: 0 Pain Scale used: Numeric (1 - 10) - Nausea Vomiting Nausea Vomiting: Not Present - Hydration Hydration: Tolerates oral liquids, Has not voided - Discharge PostOp Status: Transfer Patient to floor
--- NOTE | 2017-02-08 12:18 | Event Note ---
Date of Encounter: 02/08/17 Time of Encounter: 12:00 - Cardiology Event Note prelim LYN results discussed with Dr. Ba, official report to follow. LYN negative for intracardiac thrombus. No clear etiology of CVA, CT scans/MRA inconclusive. No arrhythmia noted per telemetry review, SR throughout recording with occasional PAC. Recommend f/u with Dr. Micheal Pal in the outpatient setting to discuss loop recorder implantation--cryptogenic CVA. Will arrange appt. Recommend outpatient evaluation for RASHAWN. No further recommendations from Cardiology. Discussed and reviewed with Dr. Shah who agrees with plan.
[2017-02-08] MEDS: Ibuprofen 800 MG TABLET PO PRN (14:41)
--- NOTE | 2017-02-08 17:56 | Internal Med Progress Note ---
Date of Encounter: 02/08/17 Time of Encounter: 14:30 - Assessment and plan (1) CVA (cerebral vascular accident) Current Visit: Yes Status: Acute Assessment and plan: Patient presents with aphasia associated with right arm numbness and paresthesia. His symptoms resolved while inpatient but then he developed left droop of mouth. Brain MRI revealed acute infarct noted in the left frontal, oriented, and anemia. The lesions in the vascular distribution of the left anterior cerebral arteries. CTA/MRA head and neck were unremarkable. He underwent LYN that was negative for intracardiac thrombus. continue anticoagulation for suspected hypercoagulable state. PLAN: outpatient loop recorder implantation. outpatient evaluation for hypercoagulable state and 4-vessel cerebral angiogram. f/u [facility]. Qualifiers: CVA mechanism: embolism Precerebral and cerebral artery: carotid artery Laterality of affected vessel: left Qualified Code(s): I63.132 - Cerebral infarction due to embolism of left carotid artery (2) Acute respiratory failure Current Visit: No Status: Acute Assessment and plan: secondary to COPD, RASHAWN/OHS. check ABG in AM for BIPAP qualification. continue oxygen supplementation. patient explained in detail the need for oxygen supplementation if his SaO2 <88%, he verbalized understanding but stated that he is fine despite his SaO2 being 95%. continue nebs, pulmicort, lasix. Qualifiers: Respiratory failure complication: hypoxia Qualified Code(s): J96.01 - Acute respiratory failure with hypoxia (3) Anxiety Current Visit: No Status: Chronic Assessment and plan: Home Prozac continued. (4) COPD (chronic obstructive pulmonary disease) Current Visit: Yes Status: Chronic Assessment and plan: No acute exacerbation. Lungs are diminished with faint expiratory wheezing. He is in no distress and speaks easily in long sentences. Continue home medications and supportive treatment. Qualifiers: COPD type: unspecified COPD Qualified Code(s): J44.9 - Chronic obstructive pulmonary disease, unspecified (5) Hypercoagulable state Current Visit: Yes Status: Suspected Assessment and plan: continue heparin drip. (6) Morbid obesity with BMI of 50.0-59.9, adult Current Visit: No Status: Chronic Assessment and plan: bmi 54. Chronic. Lifestyle changes. (7) RASHAWN (obstructive sleep apnea) Current Visit: Yes Status: Chronic Assessment and plan: outpatient sleep study (8) Tobacco use Current Visit: Yes Status: Chronic Assessment and plan: Patient declines smoking cessation counseling at this time, declines nicotine patch. - Subjective Interval history: patient has no complains. he refused to wear oxygen at this time despite his SaO2 being 85%. - Constitutional Vitals: Temp Pulse Resp BP Pulse Ox 98.1 F 85 88 128/77 89 02/08/17 15:47 02/08/17 15:47 02/08/17 15:47 02/08/17 15:47 02/08/17 15:47 General appearance: Present: cooperative, A&O X 3, morbidly obese, pleasant, no acute distress, answers questions appropriately - Neck Neck exam general surgery: Present: supple, trachea midline. Absent: lymphadenopathy - Respiratory Respiratory exam: Present: CTAB - Cardiovascular Cardiovascular exam: Present: RRR - GI/Abdominal GI/Abdominal exam: Present: normal bowel sounds, soft. Absent: distended, tenderness - Extremities Exam Extremities exam: Present: pedal edema (1+ Le edema) - Back Exam Back exam: Absent: CVA tenderness (L), CVA tenderness (R) - Neurological Exam Neurological exam: Present: alert, oriented X3, no focal deficits, strengths equal and symetr throughout. Absent: facial droop, speech deficit - Skin Skin exam: Absent: rash Internal Medicine: Result - Labs CBC & Chem 7: 02/08/17 00:52 02/08/17 00:52 Labs: Short CBC 02/08/17 Range/Units 00:52 WBC 11.0 (4.3-11.1) K/mcL Hgb 14.8 (12.9-16.9) g/dL Hct 45.8 (37.5-50.1) % Plt Count 162 (140-400) K/mcL Neutrophils # 7.9 (1.6-8.9) K/mcL BMP 02/08/17 00:52 Sodium 138 Potassium 3.9 Chloride 97 L Carbon Dioxide 33 H BUN 9 Creatinine 0.79 Glucose 206 H Calcium 9.0 - ABG Interpretation ABG results: PT/INR, D-dimer PT 11.6 Seconds (9.4-12.1) 02/05/17 14:08 Consult Discharge Plan - Plan Referrals: Micheal Pal MD [Partnered Physician] - 03/17/17 4:15 pm NO,PCP [Non-Partnered Physician] -
[2017-02-08] MEDS ORDERED: *HR* Warfarin 5 MG TABLET PO ONE (18:22)
[2017-02-08 20:16] LABS: FACV Specimen WHOLE BLOOD
[2017-02-08 21:02] LABS: APTT (LE Anticoag) 123 sec (32-48); Diluted Russell Viper Venom 30 sec (33-44); LE APTT D Heparin Neutralized 45 sec (32-48); LE Coag Reptilase Time 19.7 sec (<=21.9); PT (LE-Anticoag) 13.1 sec (12.0-15.5); Thrombin Time >150.0 sec (14.7-19.5)
[2017-02-08 21:56] LABS: ABG Base Excess 9.7 mEq/L (-2.0 to 3.0); ABG HCO3 37.5 mEQ/L (21-27); ABG Oxygen Saturation 95 % (95-98); ABG PCO2 62 mmHg (35-45); ABG PH 7.39 pH Units (7.32-7.45); ABG PO2 77 mmHg (85-104); ABG TCO2 39.4 mEq/L (20-26)
[2017-02-08 21:57] LABS: Blood Gas FiO2 32 %; Blood Gas Liter Flow 3 L/MIN
[2017-02-09 01:35] LABS: INR 1.1; Prothrombin Time 11.9 Seconds (9.4-12.1)
[2017-02-09 01:37] LABS: Activated Partial Thrombo Time 61.8 Seconds (26.0-36.0)
[2017-02-09 01:38] LABS: Basophils % 0.2 %; Eosinophils % 0.2 %; Hematocrit 46.5 % (37.5-50.1); Hemoglobin 14.8 g/dL (12.9-16.9); Immature Granulocytes % 1.1 % (0-4); Lymphocytes # 1.2 K/mcL (0.6-4.6); Lymphocytes % 9.5 %; Mean Corpuscular HGB Conc 31.8 g/dL (31.6-35.5); Mean Corpuscular Hemoglobin 28.8 pg (28.0-33.3); Mean Corpuscular Volume 90.6 fL (83.0-100.0); Monocytes # 0.8 K/mcL (0.0-1.3); Monocytes % 6.4 %; Neutrophils # 10.6 K/mcL (1.6-8.9); Platelet Count 181 K/mcL (140-400); Red Blood Count 5.13 M/mcL (4.19-5.50); Red Cell Distribution Width 13.3 % (11.5-14.5); Segmented Neutrophils % 82.6 %
[2017-02-09 01:45] LABS: BUN/Creatinine Ratio 14 (6-26); Blood Urea Nitrogen 12 mg/dL (8-26); Calcium 9.6 mg/dL (8.6-10.8); Carbon Dioxide 34 mEq/L (19-29); Chloride 98 mEq/L (98-109); Glucose 186 mg/dL (70-99); Osmolality,Calculated 295 (280-300); Potassium 4.3 mEq/L (3.5-4.5); Sodium 140 mEq/L (136-145); eGFR For African Americans > 60 (> 60); eGFR For Non-African Americans > 60 (> 60)
[2017-02-09] MEDS: *HR* OxyCODONE Immed Rel 5 MG TABLET PO PRN ×2 (03:40→14:37)
[2017-02-09 07:45] LABS: Antithrombin III, Activity 83 % (76-128)
[2017-02-09 07:46] LABS: Protein S Antigen, Total 97 % (84-134)
[2017-02-09 07:47] LABS: Protein C, Functional 128 % (83-168); Protein S, Functional 81 % (66-143)
[2017-02-09 07:50] LABS: Fac V Leiden R506Q Mut Result NEGATIVE
[2017-02-09] MEDS: Furosemide 20 MG TABLET PO SCH ×2 (09:11→17:49)
[2017-02-09] MEDS: Aspirin 81 MG TAB.CHEW PO SCH (09:11)
[2017-02-09] MEDS: Nicotine 21 MG PATCH.TD24 TD SCH (09:12)
[2017-02-09] MEDS: Multivit/Ca/Min/Fe/FA 1 TAB TABLET PO SCH (09:12)
[2017-02-09] MEDS: FLUoxetine 20 MG CAPSULE PO SCH (09:12)
[2017-02-09] MEDS: Gabapentin 300 MG CAPSULE PO SCH ×3 (09:12→21:16)
[2017-02-09] MEDS: *HR* HYDROcodone/Acet 5/325 mg TABLET PO PRN (09:20)
[2017-02-09] MEDS: Nystatin OINT 15 GM TUBE TP SCH ×3 (10:07→21:16)
[2017-02-09] MEDS: Heparin 25,000 UNIT/500 ML D5W 25,000 UNIT/500 ML MLS IVC SCH ×2 (10:24→14:34)
[2017-02-09] MEDS: Budesonide/Formoterol 160/4.5 MDI IH SCH ×2 (10:54→20:07)
[2017-02-09] MEDS: APIXABAN 5 MG TABLET PO SCH ×2 (17:49→21:16)
[2017-02-09] MEDS ORDERED: *HR* Warfarin 5 MG TABLET PO ONE (18:00)
[2017-02-09] MEDS ORDERED: Warfarin perPT PO PRN (18:00)
--- NOTE | 2017-02-09 18:00 | Internal Med Progress Note ---
Date of Encounter: 02/09/17 Time of Encounter: 16:30 - Assessment and plan (1) CVA (cerebral vascular accident) Current Visit: Yes Status: Acute Assessment and plan: Patient presents with aphasia associated with right arm numbness and paresthesia. His symptoms resolved while inpatient but then he developed left droop of mouth. Brain MRI revealed acute infarct noted in the left frontal, oriented, and anemia. The lesions in the vascular distribution of the left anterior cerebral arteries. CTA/MRA head and neck were unremarkable. He underwent LYN that was negative for intracardiac thrombus. continue anticoagulation for suspected hypercoagulable state. I called for prior authorization of ELiquis and insurance agreed. Stop heparin, start eliquis. may dc in AM if no issues after starting Eliquis. PLAN: outpatient loop recorder implantation. outpatient evaluation for hypercoagulable state and 4-vessel cerebral angiogram. Qualifiers: CVA mechanism: embolism Precerebral and cerebral artery: carotid artery Laterality of affected vessel: left Qualified Code(s): I63.132 - Cerebral infarction due to embolism of left carotid artery (2) Acute respiratory failure Current Visit: No Status: Acute Assessment and plan: secondary to COPD, RASHAWN/OHS. patient qualified for BIPAP at night-time and naptime. continue oxygen supplementation. continue nebs, pulmicort, lasix and BIPAP at bedtime. Qualifiers: Respiratory failure complication: hypoxia Qualified Code(s): J96.01 - Acute respiratory failure with hypoxia (3) Anxiety Current Visit: No Status: Chronic Assessment and plan: Home Prozac continued. (4) COPD (chronic obstructive pulmonary disease) Current Visit: Yes Status: Chronic Assessment and plan: No acute exacerbation. Lungs are diminished with faint expiratory wheezing from OHS. He is in no distress and speaks easily in long sentences. Continue home medications and supportive treatment. Qualifiers: COPD type: unspecified COPD Qualified Code(s): J44.9 - Chronic obstructive pulmonary disease, unspecified (5) Hypercoagulable state Current Visit: Yes Status: Suspected Assessment and plan: plan as above (6) Morbid obesity with BMI of 50.0-59.9, adult Current Visit: No Status: Chronic Assessment and plan: bmi 54. Chronic. Lifestyle changes. (7) RASHAWN (obstructive sleep apnea) Current Visit: Yes Status: Chronic Assessment and plan: outpatient sleep study (8) Tobacco use Current Visit: Yes Status: Chronic Assessment and plan: Patient declines smoking cessation counseling at this time, declines nicotine patch. - Subjective Interval history: patient denies any bleeding. No chest pain. No shortness of breath. - Constitutional Vitals: Temp Pulse Resp BP Pulse Ox 97.7 F 84 17 149/77 91 02/09/17 15:37 02/09/17 15:37 02/09/17 15:37 02/09/17 15:37 02/09/17 15:37 General appearance: Present: cooperative, A&O X 3, morbidly obese, pleasant, no acute distress, answers questions appropriately - Neck Neck exam general surgery: Present: supple, trachea midline. Absent: lymphadenopathy - Respiratory Respiratory exam: Present: decreased breath sounds, wheezes (mild diffuse wheezes) - Cardiovascular Cardiovascular exam: Present: RRR - GI/Abdominal GI/Abdominal exam: Present: normal bowel sounds, soft. Absent: distended, tenderness - Extremities Exam Extremities exam: Absent: pedal edema - Back Exam Back exam: Absent: CVA tenderness (L), CVA tenderness (R) - Neurological Exam Neurological exam: Present: alert, oriented X3, no focal deficits, strengths equal and symetr throughout. Absent: facial droop, speech deficit - Skin Skin exam: Absent: rash Internal Medicine: Result - Labs CBC & Chem 7: 02/09/17 00:47 02/09/17 00:47 Labs: Short CBC 02/09/17 Range/Units 00:47 WBC 12.8 H (4.3-11.1) K/mcL Hgb 14.8 (12.9-16.9) g/dL Hct 46.5 (37.5-50.1) % Plt Count 181 (140-400) K/mcL Neutrophils # 10.6 H (1.6-8.9) K/mcL BMP 02/09/17 00:47 Sodium 140 Potassium 4.3 Chloride 98 Carbon Dioxide 34 H BUN 12 Creatinine 0.84 Glucose 186 H Calcium 9.6 - ABG Interpretation ABG results: ABG ABG pH 7.39 pH Units (7.32-7.45) 02/08/17 21:37 ABG pCO2 62 mmHg (35-45) H 02/08/17 21:37 ABG pO2 77 mmHg (85-104) L 02/08/17 21:37 ABG O2 Saturation 95 % (95-98) 02/08/17 21:37 PT/INR, D-dimer PT 11.9 Seconds (9.4-12.1) 02/09/17 00:47 Consult Discharge Plan - Plan Referrals: Micheal Pal MD [Partnered Physician] - 03/17/17 4:15 pm NO,PCP [Non-Partnered Physician] - Prescriptions: Apixaban [Eliquis] 5 mg PO BID #60 tablet
[2017-02-10 04:27] LABS: Basophils # 0.1 K/mcL (0.0-0.2); Basophils % 0.8 %; Eosinophils # 0.3 K/mcL (0.0-0.6); Eosinophils % 2.3 %; Hematocrit 49.4 % (37.5-50.1); Hemoglobin 15.4 g/dL (12.9-16.9); Immature Granulocytes % 1.8 % (0-4); Lymphocytes # 2.8 K/mcL (0.6-4.6); Lymphocytes % 22.1 %; Mean Corpuscular HGB Conc 31.2 g/dL (31.6-35.5); Mean Corpuscular Volume 89.8 fL (83.0-100.0); Mean Platelet Volume 10.6 fL (9.4-12.4); Monocytes # 1.2 K/mcL (0.0-1.3); Monocytes % 9.8 %; Neutrophils # 7.9 K/mcL (1.6-8.9); Platelet Count 195 K/mcL (140-400); Red Cell Distribution Width 13.9 % (11.5-14.5); Segmented Neutrophils % 63.2 %
[2017-02-10 04:41] LABS: BUN/Creatinine Ratio 15 (6-26); Blood Urea Nitrogen 13 mg/dL (8-26); Calcium 9.5 mg/dL (8.6-10.8); Carbon Dioxide 37 mEq/L (19-29); Chloride 97 mEq/L (98-109); Glucose 174 mg/dL (70-99); INR 1.3; Osmolality,Calculated 294 (280-300); Phosphorous 4.5 mg/dL (2.3-4.7); Potassium 4.3 mEq/L (3.5-4.5); Prothrombin Time 13.6 Seconds (9.4-12.1); Sodium 140 mEq/L (136-145); eGFR For African Americans > 60 (> 60); eGFR For Non-African Americans > 60 (> 60)
[2017-02-10 07:22] VITALS: BP 157/96
[2017-02-10] MEDS: Furosemide 20 MG TABLET PO SCH (08:17)
[2017-02-10] MEDS: Gabapentin 300 MG CAPSULE PO SCH (08:17)
[2017-02-10] MEDS: Nicotine 21 MG PATCH.TD24 TD SCH (08:17)
[2017-02-10] MEDS: APIXABAN 5 MG TABLET PO SCH (08:17)
[2017-02-10] MEDS: Multivit/Ca/Min/Fe/FA 1 TAB TABLET PO SCH (08:17)
[2017-02-10] MEDS: *HR* OxyCODONE Immed Rel 5 MG TABLET PO PRN (08:17)
[2017-02-10] MEDS: FLUoxetine 20 MG CAPSULE PO SCH (08:17)
[2017-02-10] MEDS: Aspirin 81 MG TAB.CHEW PO SCH (08:17)
[2017-02-10] MEDS: Nystatin OINT 15 GM TUBE TP SCH (08:18)
[2017-02-10] MEDS: Budesonide/Formoterol 160/4.5 MDI IH SCH (10:00)
--- NOTE | 2017-02-10 10:35 | Discharge Summary ---
Date of Encounter: 02/11/17 Time of Encounter: 10:33 - Discharge Diagnosis (1) CVA (cerebral vascular accident) Priority: Primary Status: Acute Qualifiers: CVA mechanism: embolism Precerebral and cerebral artery: carotid artery Laterality of affected vessel: left Qualified Code(s): I63.132 - Cerebral infarction due to embolism of left carotid artery (2) Acute respiratory failure Priority: Primary Status: Acute Qualifiers: Respiratory failure complication: hypoxia Qualified Code(s): J96.01 - Acute respiratory failure with hypoxia (3) Hypercoagulable state Priority: Primary Status: Suspected (4) Anxiety Priority: Secondary Status: Chronic (5) COPD (chronic obstructive pulmonary disease) Priority: Secondary Status: Chronic Qualifiers: COPD type: unspecified COPD Qualified Code(s): J44.9 - Chronic obstructive pulmonary disease, unspecified (6) Morbid obesity with BMI of 50.0-59.9, adult Priority: Secondary Status: Chronic (7) RASHAWN (obstructive sleep apnea) Priority: Secondary Status: Chronic (8) Tobacco use Priority: Secondary Status: Chronic - Discharge Medications Prescriptions: Apixaban [Eliquis] 5 mg PO BID #60 tablet Aspirin 81 mg PO DAILY #30 Atorvastatin [Lipitor] 40 mg PO HS #30 tab Nicotine Patch [Nicoderm] 21 mg TD DAILY #30 Home Medications: FLUoxetine HCl [Prozac] 20 mg PO DAILY 01/09/17 [History] Gabapentin [Neurontin] 300 mg PO HS 01/09/17 [History] Budesonide/Formoterol 160/4.5 [Symbicort 160/4.5] 2 puff IH BIDR #1 inhaler [Rx] Furosemide [Lasix] 20 mg PO BID #60 tablet 01/15/17 [Rx] Potassium Chloride 20 meq PO DAILY #30 tab.er.prt 01/15/17 [Rx] Albuterol Sulfate [Albuterol Inhaler] 2 puff IH Q4HR PRN 02/03/17 [History] Ipratropium/Albuterol Neb [Duoneb] 3 ml IH Q6HR 02/03/17 [History] Multivitamin [Multi-Day Vitamins] 1 each PO DAILY 02/03/17 [History] Apixaban [Eliquis] 5 mg PO BID #60 tablet 02/09/17 [Rx] Aspirin 81 mg PO DAILY #30 07/21/17 [Rx] Atorvastatin [Lipitor] 40 mg PO HS #30 tab 02/10/17 [Rx] Nicotine Patch [Nicoderm] 21 mg TD DAILY #30 02/10/17 [Rx] Nystatin OINT [Mycostatin] 1 appl TP TID #0 02/10/17 [Rx] Allergies/Adverse Reactions: Allergies No Known Allergies Allergy (Verified 01/09/17 09:02) Date of admission: 02/06/17 09:30 Primary care physician: Sherman Mccall Jr, MD Consults: 02/06/17 12:51 Consult to Occupational Therapy [CONS] Routine Comment: Evaluate, develop and implement POC Reason for Consult: acute cva x3; weak Consult to Physical Therapy [CONS] Routine Comment: Evaluate, develop and implement POC Reason for Consult: acute CVA x3, weak 02/07/17 13:04 Consult to Neurology [CONS] Routine Consulting Provider: [facility] Reason for Consult: Current CVA. Workup for hypercoaguable state in progress. Pt with new subtle L mouth droop, CVA on L side. LYN tomorrow a.m. Carotids negative, MRA head and neck negative. Time Notified: 13:06 Call Completed: Yes 02/07/17 16:34 Consult to Oncology Hematology [CONS] Routine Consulting Provider: Uriel Guerrero Jr Reason for Consult: Clotting disorder evaulation. Pt has ischemic CVA x 3 since arrival. states that she has seen clots in vacutainers. Both pt and son state that they do not bleed, even with severe injuries. Labs have been drawn and sent out for evaluation of hypercoaguable state. Call Completed: No 02/07/17 16:36 Consult to Physician [CONS] Routine Consulting Provider: Piyush Silveira Reason for Consult: Evaluation for four-vessel angiogram, Dr. Silveira per 's request. Pt admitted for embolic CVA. MRA/CTA head and neck inconclusive. Appreciate recommendations. Pt also being evaluated for hypercoaguable state and LYN in the a.m. Call Completed: No 02/08/17 12:03 Consult to Vp Clinical Research [CONS] Routine Reason for SW Consult: Home cpap/bipap - Patient Status Disposition: Home, Self-Care Condition: Good Functional capacity at discharge: independent ambulation Overall status at discharge: patient is progressing back to baseline - Discharge Instructions Instructions: How to Stop Smoking (DC), Ischemic Stroke (DC), Hyperlipidemia ( DC) Follow Up With: Micheal Pal MD [Partnered Physician] - 03/17/17 4:15 pm Zoie Romo CNP [Advanced Practice Nurse] - 02/16/17 1:00 pm Additional Instructions: Follow-up appointments: If there is not an appointment listed below, please call your physician and schedule a follow-up appointment. If you have congestive heart failure and your symptoms return, make an appointment with your physician. Medication List: Carry an up to date list of medications you are taking at all time. We have given you an updated medication list including any new medications that you have been prescribed. Please provide that list to your primary provider Symptoms: If your condition changes or you experience any of the following symptoms, notify your physician immediately: Unusual or worsening pain, fever, persistent nausea and vomiting, bleeding, increase in swelling (especially in your legs), sudden weight gain, extreme dizziness, chest pain, increased drainage or redness from a wound or incision. Go to the emergency department if you experience a problem with breathing. Weights: If you have a history of swelling or shortness of breath, weigh yourself daily and notify your physician if you have a weight gain of two or more pounds in one day or 5 or more pounds in a week. If you experience any of the warning signs for stroke: Sudden numbness or weakness of the face, arm or leg; especially on one side of the body, sudden confusion, trouble speaking or understanding, sudden trouble seeing in one or both eyes, sudden trouble walking, dizziness, loss of balance or coordination, sudden sever headache with no cause; Call 911 or go to the emergency room. Stroke is a medical emergency. Some risk factors for stroke: Age, cigarette smoking, diabetes, excessive alcohol consumption, family history , high blood pressure, overweight, physical inactivity, prior stroke, heart attack, diagnosis of carotid artery stenosis or other artery disease. If you smoke, STOP: Smoking or tobacco use significantly increases your risk of heart and lung disease. Your chance of disease greatly increases if you continue to smoke. For more information, call the [employer] tobacco quit line for smoking cessation QUIT-NOW ( ) - Diet and Activity Activity: resume usual activities as tolerated, other Diet: low fat, low cholesterol, low salt diet Interval History: patient states this is the first time after many years that he has been able to sleep without waking up, all thanks to the BIPAP. Hospital course: Mr. Castellon is a 51 year old male with past medical history of COPD, morbid obesity with BMI of 50, RASHAWN and tobacco use who presented with a chief complaint of a fascia, right arm numbness and paresthesia. His symptoms resolved while inpatient but then he developed left droop of mouth. Brain MRI revealed acute infarct noted in the left frontal, left parietal and medial left frontoparietal regions. The lesions in the vascular distribution of the left anterior cerebral arteries. CTA/MRA head and neck were unremarkable. He underwent LYN that was negative for intracardiac thrombus. continue anticoagulation for suspected hypercoagulable state. I called for prior authorization of Eliquis and insurance agreed. PLAN: outpatient loop recorder implantation. outpatient evaluation for hypercoagulable state in the oncology clinic. 4-vessel cerebral angiogram as outpatient. - Time Spent with Patient Total time spent providing and/or coordinating discharge services: - Constitutional Vitals: Temp Pulse Resp BP Pulse Ox 97.6 F 69 16 157/96 98 02/10/17 07:15 02/10/17 07:15 02/10/17 07:15 02/10/17 07:15 02/10/17 07:15 General appearance: Present: cooperative, A&O X 3, morbidly obese, pleasant, no acute distress, answers questions appropriately - Neck Neck exam general surgery: Present: supple, trachea midline. Absent: lymphadenopathy - Respiratory Respiratory exam: Present: decreased breath sounds (at lung bases ) - Cardiovascular Cardiovascular exam: Present: RRR - GI/Abdominal GI/Abdominal exam: Present: normal bowel sounds, soft. Absent: distended, tenderness - Extremities Exam Extremities exam: Present: pedal edema - Back Exam Back exam: Absent: CVA tenderness (L), CVA tenderness (R)
[2017-02-10 20:58] LABS: A1286C MTHFR Mutation NEGATIVE; C665T MTHFR Mutation HETEROZYGOUS; MTHFR Specimen Type WHOLE BLOOD
[2017-02-11 07:06] LABS: Antiphospholipid IgG High Spec 3 GPL (0-14); Antiphospholipid IgM High Spec 0 MPL (0-14)
== END 2017-02-10 12:57 | disposition home or self-care (01) | DRG 64 ==
LOC: EMEROO 19:37 → 3BNU 19:37 → SUATTDRO 02-06 09:30
PROVIDERS: ADMIT Internal Medicine; ATTEND Internal Medicine

== ENCOUNTER 2017-05-01 14:41 | Observation (INO) ==
[2017-05-01 15:41] LABS: Basophils # 0.1 K/mcL (0.0-0.2); Basophils % 0.6 %; Eosinophils # 0.2 K/mcL (0.0-0.6); Eosinophils % 2.4 %; Hematocrit 51.4 % (37.5-50.1); Hemoglobin 16.8 g/dL (12.9-16.9); Immature Granulocytes % 0.3 % (0-4); Lymphocytes # 1.8 K/mcL (0.6-4.6); Lymphocytes % 17.6 %; Mean Corpuscular HGB Conc 32.7 g/dL (31.6-35.5); Mean Corpuscular Hemoglobin 29.1 pg (28.0-33.3); Mean Corpuscular Volume 89.1 fL (83.0-100.0); Mean Platelet Volume 10.5 fL (9.4-12.4); Monocytes % 10.1 %; Neutrophils # 6.9 K/mcL (1.6-8.9); Platelet Count 264 K/mcL (140-400); Red Blood Count 5.77 M/mcL (4.19-5.50); Red Cell Distribution Width 13.5 % (11.5-14.5)
[2017-05-01 15:46] LABS: INR 1.3; Prothrombin Time 13.6 Seconds (9.4-12.1)
[2017-05-01 15:48] LABS: Activated Partial Thrombo Time 36.1 Seconds (26.0-36.0)
[2017-05-01 15:53] LABS: BUN/Creatinine Ratio 16 (6-26); Blood Urea Nitrogen 13 mg/dL (8-26); Calcium 9.6 mg/dL (8.6-10.8); Carbon Dioxide 30 mEq/L (19-29); Chloride 104 mEq/L (98-109); Glucose 131 mg/dL (70-99); Osmolality,Calculated 294 (280-300); Potassium 3.8 mEq/L (3.5-4.5); Sodium 141 mEq/L (136-145); eGFR For African Americans > 60 (> 60); eGFR For Non-African Americans > 60 (> 60)
[2017-05-01 16:21] LABS: Bilirubin,Urine Negative (Negative); Blood,Urine Negative (Negative); Clarity,Urine Clear (Clear); Color,Urine Yellow (Yellow); Glucose,Urine (UA) Normal (Normal); Ketones,Urine Negative (Negative); Leukocyte Esterase,Urine Negative (Negative); Nitrite,Urine Negative (Negative); PH,Urine 6.5 pH Units (5.0-8.0); Protein,Urine Negative (Neg-Trace); Specific Gravity,Urine 1.025 (1.010-1.025); Urobilinogen,Urine Normal (Normal)
[2017-05-01] MEDS ORDERED: Metoclopramide 10 MG/2 ML VIAL IVP ONE (17:14)
[2017-05-01 17:45] LABS: ABG Base Excess 5 mEq/L (-2 to 3); ABG HCO3 30 mEq/L (21-27); ABG Oxygen Saturation 97 % (95-98); ABG PCO2 46 mmHg (35-45); ABG PH 7.42 pH Units (7.32-7.45); ABG PO2 90 mmHg (85-104); ABG TCO2 32 mEq/L (20-26)
[2017-05-01] MEDS ORDERED: Aspirin 81 MG TAB.CHEW PO ONE (17:52)
[2017-05-01] MEDS ORDERED: Ipratropium/Albuterol Neb 3 ML IH PRN (19:10)
[2017-05-01] MEDS ORDERED: Naloxone 0.4 MG/ML INJ IVP PRN (19:34)
--- NOTE | 2017-05-01 19:58 | Internal Med History&Physical ---
<Ze Mijares J - Last Filed: 05/01/17 19:52> Date of Encounter: 05/01/17 Time of Encounter: 19:52 Assessment and Plan (1) CVA (cerebral vascular accident) Current visit: Yes Status: Acute Due to prior history of recent CVA, has obvious speech delay and stuttering is worse from his stated baseline. He was placed on eliquis following his first CVA. She has no focal neuro deficits with the exception of speech deficits. CT angiogram of head showed no flow-limiting stenosis and no hemorrhage. There is suspicion the patient may have had evolution of stroke Consult neurology-I spoke with Dr. Beard and informed him of the patient's condition. He requested we get a CT of the head and do MRI in the morning Stat CT of head MRI in the morning NIHSS, neurochecks per protocol Every 4 hours vitals Bedside dysphagia screening Continuous telemetry Maintain SBP less than 150 Hydralazine 10mg IVP Q6 PRN for SBP greater than 150 Start Metoprolol 25mg PO BID 1st dose now Qualifiers: CVA mechanism: embolism Precerebral and cerebral artery: carotid artery Laterality of affected vessel: left Qualified Code(s): I63.132 - Cerebral infarction due to embolism of left carotid artery (2) Dysarthria Current visit: Yes Status: Acute See plan of care above (3) Morbid obesity with BMI of 50.0-59.9, adult Current visit: Yes Status: Chronic (4) COPD (chronic obstructive pulmonary disease) Current visit: Yes Status: Chronic History of COPD. In no respiratory distress at this time, resting comfortably on RA. Resume Duonebs and KATYA. Respiratory support PRN Qualifiers: COPD type: unspecified COPD Qualified Code(s): J44.9 - Chronic obstructive pulmonary disease, unspecified (5) RASHAWN (obstructive sleep apnea) Current visit: Yes Status: Acute H/o RASHAWN, he reports that he wears a BiPAP at home. His will bring in his home bipap machine. Consult to RT for help setting up. (6) DVT prophylaxis Current visit: Yes Status: Acute [facility] Internal Medicine - H&P: HPI Chief complaint: Stuttering and speech delay R/o CVA Admitted From: Home Plans for Post Hospital Care: Home History of present illness: Mr. Castellon is a 52 year old male with a PMH of HTN, RASHAWN, COPD, and CVA in January 2017. Presented to [facility] today with 2 day history of worsening stuttering, speech delay as well as reported memory loss and difficulty concentrating. The patient reports that in January 2017 he had a CVA at that time he presented with expressive and receptive aphasia. His is at bedside and reports that the expressive and receptive aphasia and gone away until yesterday evening. She noticed that the patient was having difficulty speaking she notes that it is attempting to converse with her. Her difficulty finding words he wanted to say in addition to that he began stuttering. This morning stuttering and speech delay was markedly worse. He reports subjective fevers and headache. Denies any dizziness, vision changes, gait changes. Workup in the emergency Department included CT angiogram reveals no flow limiting stenosis of cervical carotid artery possible evolution of CVA. He is being admitted for further workup and evaluation Past Med Surg Social Fam HX - Past Medical History Medical history: COPD, CVA, kidney stones, other Psychiatric history: anxiety, depression - Past Surgical History Surgical History: orthopedic, other - Social History Smoking Status: Current every day smoker Smokeless Tobacco Status: No Alcohol use: none Drug use: none - Family History Mother Hx Family Cancer: Yes Internal Medicine - H&P: Meds FLUoxetine HCl [Prozac] 20 mg PO DAILY 01/09/17 [History] Budesonide/Formoterol 160/4.5 [Symbicort 160/4.5] 2 puff IH BIDR #1 inhaler [Rx] Furosemide [Lasix] 20 mg PO BID #60 tablet 01/15/17 [Rx] Albuterol Sulfate [Albuterol Inhaler] 2 puff IH Q4HR PRN 02/03/17 [History] Ipratropium/Albuterol Neb [Duoneb] 3 ml IH Q6HR PRN 02/03/17 [History] Multivitamin [Multi-Day Vitamins] 1 each PO DAILY 02/03/17 [History] Apixaban [Eliquis] 5 mg PO BID #60 tablet 02/09/17 [Rx] Aspirin 81 mg PO DAILY #30 02/10/17 [Rx] HYDROcodone/Acet 5/325 mg [[place] 5-325 mg] 1 tab PO BID PRN 04/13/17 [History] SUMAtriptan succinate [Imitrex] 50 mg PO Q2H PRN MDD 100 mg 05/01/17 [History] 3 Allergy/AdvReac Type Severity Reaction Status Date / Time No Known Allergies Allergy Verified 02/22/17 13:11 All Systems PM: A 10-system review of systems was performed and is negative for pertinent findings except as documented above in the HPI. - Constitutional Constitutional: fatigue, fever(s), no chills, no falls, no lethargy, no malaise , no night sweats, no weakness - EENT Eyes: no blurry vision, no change in vision, no discharge, no loss of peripheral vision, no loss of vision, no pain, no photophobia, no seeing flashes , no spots in vision, no tunnel vision Ears: no ear discharge, no ear pain, no tinnitus Nose, mouth and throat: no dysphagia, no nasal discharge, no neck pain, no sore throat - Cardiovascular Cardiovascular ROS IM: no chest pain, no diaphoresis, no dyspnea, no lightheadedness, no palpitations, no syncope - Respiratory Respiratory: no cough, no dyspnea, no wheezing, no excessive phlegm production - Gastrointestinal Gastrointestinal: no abdominal pain, no diarrhea, no hematemesis, no hematochezia, no melena, no nausea, no vomiting - Musculoskeletal Musculoskeletal ROS IM: no numbness, no tingling - Integumentary Integumentary IM: no rash, no unusual bruising - Neurological Neurological ROS: as per HPI, abnormal speech, headache(s), memory loss, no abnormal gait, no abnormal hearing, no abnormal movements, no behavioral changes , no burning sensations, no confusion, no convulsions, no disequilibrium, no dizziness, no focal weakness, no frequent falls, no lack of coordination, no loss of vision, no numbness, no paresthesias, no radicular pain, no restless legs, no tingling, no tremor(s), no vertigo, no weakness, no other visual disturbances, no other - Hematologic/Lymphatic Hematologic/Lymphatic: no easy bruising - Constitutional Vitals: Temp Pulse Resp BP Pulse Ox 98.1 F 74 18 125/77 96 05/01/17 19:28 05/01/17 19:28 05/01/17 19:28 05/01/17 19:28 05/01/17 19:28 General appearance: Present: cooperative, A&O X 3, no acute distress, answers questions appropriately - Head Head exam: Present: atraumatic, normocephalic - Eye Eye exam: Present: PERRL, conjuntiva pink, sclera anicteric Pupils: Present: PERRL - Neck Neck exam general surgery: Present: supple, trachea midline. Absent: lymphadenopathy - Respiratory Respiratory exam: Present: CTAB. Absent: accessory muscle use, rales, rhonchi, wheezes - Cardiovascular Cardiovascular exam: Present: RRR, +S1, +S2. Absent: diastolic murmur, gallop, rubs, systolic murmur - GI/Abdominal GI/Abdominal exam: Present: normal bowel sounds, soft, no peritoneal signs. Absent: distended, tenderness - Extremities Exam Extremities exam: Present: warm, radial pulses palpable and symmetrical. Absent : calf tenderness, cyanotic, pedal edema - Neurological Exam Neurological exam: Present: alert, altered (The patient appears to have speech delay and new stuttering), CN II-XII intact, oriented X3, reflexes normal, no focal deficits, strengths equal and symetr throughout. Absent: abnormal gait, pronater drift, facial droop, speech deficit - Expanded Neurological Exam Neurological exam expanded: Absent: expressive aphasia, inattentive, receptive aphasia Patient oriented to: Present: person, place, time Speech: Present: stutter. Absent: fluid speech, garbled, slurred Cranial Nerves: EOM's intact PM: Normal, gag reflex PM: Normal, nystagmus PM: Normal, tongue deviation PM: Normal Cerebellar function: finger to nose: Normal, heel to jain: Normal, Romberg: Normal Upper motor neuron: Babinski sign: Normal, Corbin neglect: Normal, pronator drift : Normal, sensory extinction: Normal Sensory exam: LE 2 point discrimination: Normal, lower extremity light touch: Normal, lower extremity pin prick: Normal, lower extremity temperature: Normal, UE 2 point discrimination: Normal, upper extremity light touch: Normal, upper extremity pin prick: Normal, upper extremity temperature: Normal Neuro motor strength exam: LUE: 5, RUE: 5, LLE: 5, RLE: 5 Coma Scale Eye Opening: Spontaneous Coma Scale Motor Response: Obeys Commands Coma Scale Verbal Response: Oriented Coma Scale Total: 15 - Skin Skin exam: Present: dry, intact Internal Med - H&P Results - Labs CBC & Chem 7: 05/01/17 15:24 05/01/17 15:24 - Diagnostic Studies CT scan - head Status: image reviewed by me Additional comments: CT angiogram reveals no flow limiting stenosis no hemorrhage Chest x-ray Status: image reviewed by me Additional comments: Chest x-ray reveals no acute pulmonary disease <Jm Barcenas - Last Filed: 05/02/17 07:17> Date of Encounter: 05/01/17 Internal Medicine - H&P: HPI History of present illness: Mr. Castellon is a 52 year old male All Systems PM: A 10-system review of systems was performed and is negative for pertinent findings except as documented above in the HPI. - Constitutional Vitals: Temp Pulse Resp BP Pulse Ox 97.9 F 68 16 104/68 94 05/02/17 04:02 05/02/17 04:02 05/02/17 04:02 05/02/17 04:02 05/02/17 04:02 Internal Med - H&P Results - Labs CBC & Chem 7: 05/01/17 15:24 05/01/17 15:24 - Attending Attestation I have personally performed a face to face evaluation on this patient and I discussed the assessment and plan with the nurse practitioner. I have reviewed and agree with the documented care plan. History and Exam by me shows: Mr. Castellon is a 52 year old male with a PMH of HTN, RASHAWN, COPD, and CVA in January 2017. Presented to [facility] today with 2 day history of worsening stuttering, speech delay as well as reported memory loss and difficulty concentrating. The patient reports that in January 2017 he had a CVA at that time he presented with expressive and receptive aphasia. His is at bedside and reports that the expressive and receptive aphasia and gone away until yesterday evening. Pt symptoms improved now Gen: A, A, O x3 Chest: Diminished BS b/l Heart: S1S2 + RRR a/p 1. Speech difficulties 2. h/o recent CVA Will place him on tele neuro check q4hr MRI of Brain in AM neuro consulted
[2017-05-01] MEDS: Budesonide/Formoterol 160/4.5 MDI IH SCH (20:00)
[2017-05-01] MEDS: APIXABAN 5 MG TABLET PO SCH (21:15)
[2017-05-01] MEDS: Furosemide 20 MG TABLET PO SCH (21:15)
[2017-05-01] MEDS: *HR* HYDROcodone/Acet 5/325 mg TABLET PO PRN (21:57)
--- NOTE | 2017-05-01 23:21 | Emergency Department Note ---
Disposition Clinical Impression: History of TIA (Transient Ischemic Attack) and Stroke Disposition: Admitted As Inpatient Condition: Good General Adult HPI - General Chief complaint: ED Neuro Symptoms/Deficit Stated complaint: Trouble Speaking Time Seen by Provider: 05/01/17 15:12 Source: patient Limitations: no limitations Nursing Notes Reviewed: Yes Vital Signs Reviewed: Yes - History of Present Illness HPI Narrative: This is a 52-year-old male presents with concern for dysarthria and stuttering of speech. He does have a history of having a recent stroke. He has been medically maximized but over the past several days she has had worsening stuttering. He has mild headache which has been chronic since his stroke. He also has a history of obstructive sleep apnea. General: No acute distress HEENT: Pupils equal and reactive to light, extraoccular muscle movement is normal, TMS are clear bilaterally. Heart: RRR, No murmor rub or gallop Lungs: lungs clear, no wheezing, rales or ronchi. ABD: SNT, no focal areas or tenderness, no guarding or rebound tenderness. Extremities: No cyanosis, clubbing or edema Neuro: CN 2-12 in tact, no focal deficit. strength 5/5. Medical decision making The male patient with history of stroke who now has new onset of stuttering. I discussed the family imaging options and elected to proceed with CTA of the head and neck. 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 Plan to admit for medical maximization neurology consult. The patient is stable at the time of admission. Follows aspirin was given at home by the patient's family member prior to arrival. No metabolic derangements identified. The patient was stable at the time of admission. I discussed with the hospitalist team. Pain Scale: 0 - Related Data Home Medications Medication Instructions Recorded Confirmed FLUoxetine HCl [Prozac] 20 mg PO DAILY 01/09/17 05/01/17 Albuterol Sulfate [Albuterol 2 puff IH Q4HR PRN 02/03/17 05/01/17 Inhaler] Ipratropium/Albuterol Neb [Duoneb] 3 ml IH Q6HR PRN 02/03/17 05/01/17 Multivitamin [Multi-Day Vitamins] 1 each PO DAILY 02/03/17 05/01/17 HYDROcodone/Acet 5/325 mg [[place] 1 tab PO BID PRN 04/13/17 05/01/17 5-325 mg] SUMAtriptan succinate [Imitrex] 50 mg PO Q2H PRN MDD 100 mg 05/01/17 05/01/17 Previous Rx's Medication Instructions Recorded Budesonide/Formoterol 160/4.5 2 puff IH BIDR #1 inhaler 01/15/17 [Symbicort 160/4.5] Furosemide [Lasix] 20 mg PO BID #60 tablet 01/15/17 Apixaban [Eliquis] 5 mg PO BID #60 tablet 02/09/17 Aspirin 81 mg PO DAILY #30 02/10/17 Allergies Allergy/AdvReac Type Severity Reaction Status Date / Time No Known Allergies Allergy Verified 02/22/17 13:11 All systems ED: reviewed and negative except as stated. Past Medical History - Past Medical History Medical history: Reports: COPD, CVA, kidney stones, other Surgical history: Reports: orthopedic, other Psychiatric history: Reports: anxiety, depression - Social History Smoking Status: Current every day smoker Smokeless Tobacco Status: No Alcohol use: Reports: none Drug use: Reports: none Physical Exam - General Limitations: no limitations General appearance: alert, in no apparent distress Course Vital Signs Temperature 98.9 F 05/01/17 14:44 Pulse Rate 98 05/01/17 14:44 Respiratory Rate 16 05/01/17 14:44 Blood Pressure 179/100 05/01/17 14:44 O2 Sat by Pulse Oximetry 95 05/01/17 14:44 Temperature 98 F 05/01/17 23:18 Pulse Rate 70 05/01/17 23:18 Respiratory Rate 18 05/01/17 23:18 Blood Pressure 119/70 05/01/17 23:18 O2 Sat by Pulse Oximetry 94 05/01/17 23:18 Oxygen Delivery Oxygen Delivery Room Air Medical Decision Making - Lab Data Result diagrams: 05/01/17 15:24 05/01/17 15:24 Lab Results 05/01/17 05/01/17 05/01/17 Range/Units 15:24 15:24 15:24 WBC 10.0 (4.3-11.1) K/mcL RBC 5.77 H (4.19-5.50) M/mcL Hgb 16.8 (12.9-16.9) g/dL Hct 51.4 H (37.5-50.1) % MCV 89.1 (83.0-100.0) fL MCH 29.1 (28.0-33.3) pg MCHC 32.7 (31.6-35.5) g/dL RDW 13.5 (11.5-14.5) % Plt Count 264 (140-400) K/mcL MPV 10.5 (9.4-12.4) fL Immature Gran % 0.3 (0-4) % Seg Neutrophils % 69.0 % Lymphocytes % 17.6 % Monocytes % 10.1 % Eosinophils % 2.4 % Basophils % 0.6 % Neutrophils # 6.9 (1.6-8.9) K/mcL Lymphocytes # 1.8 (0.6-4.6) K/mcL Monocytes # 1.0 (0.0-1.3) K/mcL Eosinophils # 0.2 (0.0-0.6) K/mcL Basophils # 0.1 (0.0-0.2) K/mcL PT 13.6 H (9.4-12.1) Seconds INR 1.3 APTT 36.1 H (26.0-36.0) Seconds ABG pH (7.32-7.45) pH Units ABG pCO2 (35-45) mmHg ABG pO2 (85-104) mmHg ABG HCO3 (21-27) mEq/L ABG Total CO2 (20-26) mEq/L ABG O2 Saturation (95-98) % ABG Base Excess (-2 to 3) mEq/L Sodium (136-145) mEq/L Potassium (3.5-4.5) mEq/L Chloride (98-109) mEq/L Carbon Dioxide (19-29) mEq/L BUN (8-26) mg/dL Creatinine (0.72-1.25) mg/dL Est GFR ( Amer) (> 60) Est GFR (Non-Af Amer) (> 60) BUN/Creatinine Ratio (6-26) Glucose (70-99) mg/dL Calculated Osmolality (280-300) Calcium (8.6-10.8) mg/dL Troponin I (0-0.03) ng/mL B-Natriuretic Peptide 34 (0-100) pg/mL Urine Color (Yellow) Urine Clarity (Clear) Urine pH (5.0-8.0) pH Units Ur Specific [place] (1.010-1.025) Urine Protein (Neg-Trace) mg/dL Urine Glucose (UA) (Normal) mg/dL Urine Ketones (Negative) mg/dL Urine Blood (Negative) Urine Nitrite (Negative) Urine Bilirubin (Negative) Urine Urobilinogen (Normal) mg/dL Ur Leukocyte Esterase (Negative) Ur Culture Indicated? (NO) 05/01/17 05/01/17 05/01/17 Range/Units 15:24 15:24 16:04 WBC (4.3-11.1) K/mcL RBC (4.19-5.50) M/mcL Hgb (12.9-16.9) g/dL Hct (37.5-50.1) % MCV (83.0-100.0) fL MCH (28.0-33.3) pg MCHC (31.6-35.5) g/dL RDW (11.5-14.5) % Plt Count (140-400) K/mcL MPV (9.4-12.4) fL Immature Gran % (0-4) % Seg Neutrophils % % Lymphocytes % % Monocytes % % Eosinophils % % Basophils % % Neutrophils # (1.6-8.9) K/mcL Lymphocytes # (0.6-4.6) K/mcL Monocytes # (0.0-1.3) K/mcL Eosinophils # (0.0-0.6) K/mcL Basophils # (0.0-0.2) K/mcL PT (9.4-12.1) Seconds INR APTT (26.0-36.0) Seconds ABG pH (7.32-7.45) pH Units ABG pCO2 (35-45) mmHg ABG pO2 (85-104) mmHg ABG HCO3 (21-27) mEq/L ABG Total CO2 (20-26) mEq/L ABG O2 Saturation (95-98) % ABG Base Excess (-2 to 3) mEq/L Sodium 141 (136-145) mEq/L Potassium 3.8 (3.5-4.5) mEq/L Chloride 104 (98-109) mEq/L Carbon Dioxide 30 H (19-29) mEq/L BUN 13 (8-26) mg/dL Creatinine 0.81 (0.72-1.25) mg/dL Est GFR ( Amer) > 60 (> 60) Est GFR (Non-Af Amer) > 60 (> 60) BUN/Creatinine Ratio 16 (6-26) Glucose 131 H (70-99) mg/dL Calculated Osmolality 294 (280-300) Calcium 9.6 (8.6-10.8) mg/dL Troponin I 0.01 (0-0.03) ng/mL B-Natriuretic Peptide (0-100) pg/mL Urine Color Yellow (Yellow) Urine Clarity Clear (Clear) Urine pH 6.5 (5.0-8.0) pH Units Ur Specific [place] 1.025 (1.010-1.025) Urine Protein Negative (Neg-Trace) mg/dL Urine Glucose (UA) Normal (Normal) mg/dL Urine Ketones Negative (Negative) mg/dL Urine Blood Negative (Negative) Urine Nitrite Negative (Negative) Urine Bilirubin Negative (Negative) Urine Urobilinogen Normal (Normal) mg/dL Ur Leukocyte Esterase Negative (Negative) Ur Culture Indicated? NO (NO) 05/01/17 Range/Units 17:41 WBC (4.3-11.1) K/mcL RBC (4.19-5.50) M/mcL Hgb (12.9-16.9) g/dL Hct (37.5-50.1) % MCV (83.0-100.0) fL MCH (28.0-33.3) pg MCHC (31.6-35.5) g/dL RDW (11.5-14.5) % Plt Count (140-400) K/mcL MPV (9.4-12.4) fL Immature Gran % (0-4) % Seg Neutrophils % % Lymphocytes % % Monocytes % % Eosinophils % % Basophils % % Neutrophils # (1.6-8.9) K/mcL Lymphocytes # (0.6-4.6) K/mcL Monocytes # (0.0-1.3) K/mcL Eosinophils # (0.0-0.6) K/mcL Basophils # (0.0-0.2) K/mcL PT (9.4-12.1) Seconds INR APTT (26.0-36.0) Seconds ABG pH 7.42 (7.32-7.45) pH Units ABG pCO2 46 H (35-45) mmHg ABG pO2 90 (85-104) mmHg ABG HCO3 30 H (21-27) mEq/L ABG Total CO2 32 H (20-26) mEq/L ABG O2 Saturation 97 (95-98) % ABG Base Excess 5 H (-2 to 3) mEq/L Sodium (136-145) mEq/L Potassium (3.5-4.5) mEq/L Chloride (98-109) mEq/L Carbon Dioxide (19-29) mEq/L BUN (8-26) mg/dL Creatinine (0.72-1.25) mg/dL Est GFR ( Amer) (> 60) Est GFR (Non-Af Amer) (> 60) BUN/Creatinine Ratio (6-26) Glucose (70-99) mg/dL Calculated Osmolality (280-300) Calcium (8.6-10.8) mg/dL Troponin I (0-0.03) ng/mL B-Natriuretic Peptide (0-100) pg/mL Urine Color (Yellow) Urine Clarity (Clear) Urine pH (5.0-8.0) pH Units Ur Specific [place] (1.010-1.025) Urine Protein (Neg-Trace) mg/dL Urine Glucose (UA) (Normal) mg/dL Urine Ketones (Negative) mg/dL Urine Blood (Negative) Urine Nitrite (Negative) Urine Bilirubin (Negative) Urine Urobilinogen (Normal) mg/dL Ur Leukocyte Esterase (Negative) Ur Culture Indicated? (NO)
[2017-05-02] MEDS: APIXABAN 5 MG TABLET PO SCH ×2 (08:46→20:03)
[2017-05-02] MEDS: Multivit/Ca/Min/Fe/FA 1 TAB TABLET PO SCH (08:46)
[2017-05-02] MEDS: *HR* HYDROcodone/Acet 5/325 mg TABLET PO PRN ×3 (08:46→20:38)
[2017-05-02] MEDS: Furosemide 20 MG TABLET PO SCH ×2 (08:47→20:03)
[2017-05-02] MEDS: FLUoxetine 20 MG CAPSULE PO SCH (08:47)
[2017-05-02] MEDS: Aspirin 81 MG TAB.CHEW PO SCH (08:47)
--- NOTE | 2017-05-02 10:40 | Neurology - Consult Note ---
<Reji Pulido - Last Filed: 05/02/17 10:37> Date of Encounter: 05/02/17 Time of Encounter: 09:00 Assessment and Plan (1) Dysarthria Current Visit: Yes Status: Acute Patient presents to [facility] after 2 days of worsening dysarthria, stuttering. Patient's is concerned due to similarity of symptoms with previous CVA. He had a CVA 2 months ago and had expressive and receptive aphasia, that has since resolved. Having returned/his symptoms was concerning presented to the hospital. Exam of patient revealed no focal neurologic findings, but did demonstrate stuttering of speech. She had no difficulty in identification of objects, repeating phrasing and no word finding behavior. Initial CTA of the head and neck did not reveal any new abnormalities. Patient has loop recorder in place, but states this MRI safe. He does state there has been significant amount of stressors in his life recently. Recommend allowing permissive hypertension, without having overly tight blood pressure control until confirmation of no acute infarct seen Try to maintain systolic blood pressures between 150-170 We will wait for results of MRI, but suspect patient symptoms result of stressors in life currently Patient will likely benefit from greater control of stress Continue patient Eliquis History of Present Illness Chief complaint: Stuttering speech HPI: Mr. Castellon is a 52 year old male with past medical history of COPD, hypertension , and recent CVA (with receptive and expressive aphasia, now resolved) who presented to [facility] last night after 2 days of worsening speech deficit. Cranial patient's he has been having issues stuttering for 2 days they are concerned that she was having repeated stroke. He reports no other neurologic deficit other than occasional, mild headache and right hand tingling that will come and go. His main issue has been stuttering. He does report that has been a lot of personal stress recently with financial stress, family stress, and work stress. CTA of the head and neck did not show any new acute intracranial abnormality, but redemonstrated a remote small left frontal and parietal lobe infarcts (from CVA 2 months ago). No flow-limiting stenosis is identified. Past Med Surg Social Fam HX - Past Medical History Medical history: COPD, CVA, kidney stones, other Psychiatric history: anxiety, depression - Past Surgical History Surgical History: orthopedic, other - Social History Smoking Status: Current every day smoker Smokeless Tobacco Status: No Alcohol use: none Drug use: none - Family History Mother Hx Family Cancer: Yes Medications and Allergies FLUoxetine HCl [Prozac] 20 mg PO DAILY 01/09/17 [History] Budesonide/Formoterol 160/4.5 [Symbicort 160/4.5] 2 puff IH BIDR #1 inhaler [Rx] Furosemide [Lasix] 20 mg PO BID #60 tablet 01/15/17 [Rx] Albuterol Sulfate [Albuterol Inhaler] 2 puff IH Q4HR PRN 02/03/17 [History] Ipratropium/Albuterol Neb [Duoneb] 3 ml IH Q6HR PRN 02/03/17 [History] Multivitamin [Multi-Day Vitamins] 1 each PO DAILY 02/03/17 [History] Apixaban [Eliquis] 5 mg PO BID #60 tablet 02/09/17 [Rx] Aspirin 81 mg PO DAILY #30 02/10/17 [Rx] HYDROcodone/Acet 5/325 mg [[place] 5-325 mg] 1 tab PO BID PRN 04/13/17 [History] SUMAtriptan succinate [Imitrex] 50 mg PO Q2H PRN MDD 100 mg 05/01/17 [History] 3 Allergy/AdvReac Type Severity Reaction Status Date / Time No Known Allergies Allergy Verified 02/22/17 13:11 Review of Systems: Gen: Denies weakness, denies fatigue CV: Denies chest pain Resp: Denies shortness of breath MSK: Denies muscle weakness Neuro: Reports intermittent headache, denies confusion, denies focal weakness, denies numbness, reports intermittent right hand tingling, denies vision changes , reports stuttering Physical Examination - Vital Signs Vital Signs: Initial Vital Signs Temp Pulse Resp BP Pulse Ox 98.9 F 98 16 179/100 95 05/01/17 14:44 05/01/17 14:44 05/01/17 14:44 05/01/17 14:44 05/01/17 14:44 - Exam Exam: General: Cooperative, pleasant, no acute distress, alert and oriented 3, answers questions appropriately HEENT: Normocephalic, atraumatic, neck supple, trachea midline, Conjunctiva pink , sclera anicteric, EOMI, PERRL, oral mucosa moist, no orophargeal erythema or exudates Respiratory: No accessory muscle usage, clear to auscultation bilaterally, no wheezes/rhonchi/rales appreciated Cardiovascular: Regular rate and rhythm, S1 and S2 present, no murmurs/rubs/ gallops/clicks appreciated GI/abdominal: Nondistended, nontender, soft, normal bowel sounds, no peritoneal signs Extremities: No calf tenderness, noncyanotic, no pedal edema appreciated, warm, lower extremity pulses palpable and symmetrical Neurological: Alert and oriented 3, no facial droop, no focal deficits, cranial nerves II through XII grossly intact bilaterally, finger to nose smooth and accurate, sensation to gross touch intact in upper and lower extremities bilaterally, strength 5/5 in upper and lower extremities bilaterally, DTRs 2/4 in Achilles, patellar, brachioradialis, biceps, and triceps, patient able to repeat phrases without difficulty, able to identify objects without problem, demonstrates stutter without word finding Skin: Dry, intact, normal color Results - Laboratory Findings CBC and BMP: 05/01/17 15:24 05/01/17 15:24 Abnormal lab findings: Abnormal lab results RBC 5.77 M/mcL (4.19-5.50) H 05/01/17 15:24 Hct 51.4 % (37.5-50.1) H 05/01/17 15:24 PT 13.6 Seconds (9.4-12.1) H 05/01/17 15:24 APTT 36.1 Seconds (26.0-36.0) H 05/01/17 15:24 ABG pCO2 46 mmHg (35-45) H 05/01/17 17:41 ABG HCO3 30 mEq/L (21-27) H 05/01/17 17:41 ABG Total CO2 32 mEq/L (20-26) H 05/01/17 17:41 ABG Base Excess 5 mEq/L (-2 to 3) H 05/01/17 17:41 Carbon Dioxide 30 mEq/L (19-29) H 05/01/17 15:24 Glucose 131 mg/dL (70-99) H 05/01/17 15:24 Consult Discharge Plan - Plan Referrals: Sherman Mccall Jr, MD [Primary Care Provider] - <Tato Moreno I - Last Filed: 05/02/17 13:41> Date of Encounter: 05/02/17 Assessment and Plan (1) Dysarthria Current Visit: Yes Status: Acute Patient seen and examined he does have a history of stroke but now having significant stuttering at the same time he acknowledges that he has been under a lot of stress perhaps the main contributing factor for his symptoms at this time suggest that we should get an MRI to exclude any new infarct in the meantime he will continue on his current medication patient would probably benefit from psychological evaluation or perhaps adjustment of his medication for underlying distress. TATO MORENO MD History of Present Illness HPI: Mr. Castellon is a 52 year old male All Systems: A 10-system review of systems was performed and is negative for pertinent findings except as documented above in the HPI. Physical Examination - Vital Signs Vital Signs: Initial Vital Signs Temp Pulse Resp BP Pulse Ox 98.9 F 98 16 179/100 95 05/01/17 14:44 05/01/17 14:44 05/01/17 14:44 05/01/17 14:44 05/01/17 14:44 Results - Laboratory Findings CBC and BMP: 05/01/17 15:24 05/01/17 15:24 Abnormal lab findings: Abnormal lab results RBC 5.77 M/mcL (4.19-5.50) H 05/01/17 15:24 Hct 51.4 % (37.5-50.1) H 05/01/17 15:24 PT 13.6 Seconds (9.4-12.1) H 05/01/17 15:24 APTT 36.1 Seconds (26.0-36.0) H 05/01/17 15:24 ABG pCO2 46 mmHg (35-45) H 05/01/17 17:41 ABG HCO3 30 mEq/L (21-27) H 05/01/17 17:41 ABG Total CO2 32 mEq/L (20-26) H 05/01/17 17:41 ABG Base Excess 5 mEq/L (-2 to 3) H 05/01/17 17:41 Carbon Dioxide 30 mEq/L (19-29) H 05/01/17 15:24 Glucose 131 mg/dL (70-99) H 05/01/17 15:24
[2017-05-02] MEDS: Budesonide/Formoterol 160/4.5 MDI IH SCH ×2 (11:38→21:48)
--- NOTE | 2017-05-02 12:55 | Internal Med Progress Note ---
Date of Encounter: 05/02/17 Time of Encounter: 10:25 - Assessment and plan (1) CVA (cerebral vascular accident) Current Visit: Yes Status: Acute Assessment and plan: Patient had recent CVA. Patient has change in speech, dysarthria, stuttering is worse than his normal baseline. Patient has no other neurological deficits other than stuttering imaging has been negative to this point. We are waiting on MRI to be done at this point. Neurology has evaluated the patient and feels symptoms are related to stress. CT head and CTA of head showed no flow- limiting stenosis and no hemorrhage. No acute infarct. There is suspicion that patient may have had evolution of his CVA. MRI still to be done, results pending Continue NIH scales Vital signs every 4 Continue telemetry Maintain systolic blood pressure less than 150, hydralazine when necessary, start metoprolol 25 twice a day. 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 He is been stuttering since prior to arrival. This is not resolved. All imaging has been negative to this point. MRI is still ordered and pending. Patient has been evaluated by urology who feels that this is most likely due to life stress. Patient will need to follow up with primary care for medication related to diagnosis. (3) RASHAWN (obstructive sleep apnea) Current Visit: Yes Status: Acute Assessment and plan: Patient is using BiPAP from home. (4) Morbid obesity with BMI of 50.0-59.9, adult Current Visit: Yes Status: Chronic (5) COPD (chronic obstructive pulmonary disease) Current Visit: Yes Status: Chronic Assessment and plan: No acute exacerbation at this time. Continue home medications, nebulizers, inhalers. Qualifiers: COPD type: unspecified COPD Qualified Code(s): J44.9 - Chronic obstructive pulmonary disease, unspecified (6) DVT prophylaxis Current Visit: Yes Status: Acute Assessment and plan: Pt was placed on Eliquis after last CVA. continue now. Pt is also ambulatory in his room. - Time Spent With Patient less than 15 minutes - Subjective Interval history: She was seen and evaluated at bedside at 10:25 AM. was in the room and gives most of the history, background, answers to questions. Patient has been up ambulating in the room. He appears to not have any difficulty with ambulation. Strength are strong and equal bilaterally in both upper and lower extremities. There is normal facial symmetry, PERRLA. Patient states that he wants to go home, he is aware that the MRI was not completed. We discussed that he would need to sign out AGAINST MEDICAL ADVICE. He agrees to stay, as well as allow neurology to complete their evaluation recommendations. He denies any complaints, but he does stutter at times. He denies nausea, vomiting , dizziness, blurred vision, headache, abdominal pain, back pain, dysphagia, joint pain, lightheadedness. - Constitutional Vitals: Temp Pulse Resp BP Pulse Ox 98.0 F 76 18 119/70 94 05/02/17 11:28 05/02/17 11:28 05/02/17 11:28 05/02/17 11:28 05/02/17 11:28 General appearance: Present: cooperative, A&O X 3, no acute distress, answers questions appropriately - Head Head exam: Present: atraumatic, normal inspection, normocephalic - Eye Eye exam: Present: EOMI, normal appearance, PERRL, conjuntiva pink, sclera anicteric. Absent: nystagmus Pupils: Present: normal accommodation, PERRL - Neck Neck exam general surgery: Present: supple, trachea midline. Absent: lymphadenopathy, tenderness - Respiratory Respiratory exam: Present: CTAB. Absent: accessory muscle use, chest wall tenderness, rales, respiratory distress, rhonchi, stridor, wheezes - Cardiovascular Cardiovascular exam: Present: RRR, +S1, +S2. Absent: diastolic murmur, gallop, rubs, systolic murmur, tachycardia - GI/Abdominal GI/Abdominal exam: Present: distended, normal bowel sounds, soft, no peritoneal signs. Absent: hepatomegaly, tenderness - Extremities Exam Extremities exam: Present: normal capillary refill, normal inspection, warm, radial pulses palpable and symmetrical. Absent: calf tenderness, cyanotic, joint swelling, pedal edema - Neurological Exam Neurological exam: Present: alert, oriented X3, no focal deficits, strengths equal and symetr throughout. Absent: altered, facial droop, speech deficit - Skin Skin exam: Present: dry, intact, normal color, warm. Absent: rash Internal Medicine: Result - Labs CBC & Chem 7: 05/01/17 15:24 05/01/17 15:24 - ABG Interpretation ABG results: ABG ABG pH 7.42 pH Units (7.32-7.45) 05/01/17 17:41 ABG pCO2 46 mmHg (35-45) H 05/01/17 17:41 ABG pO2 90 mmHg (85-104) 05/01/17 17:41 ABG O2 Saturation 97 % (95-98) 05/01/17 17:41 PT/INR, D-dimer PT 13.6 Seconds (9.4-12.1) H 05/01/17 15:24 Consult Discharge Plan - Plan Referrals: Sherman Mccall Jr, MD [Primary Care Provider] -
--- NOTE | 2017-05-02 16:41 | Electrocardiograph Report ---
[address] [place], [place] [address] Test Date: 2017-05-01 Pat Name: Dimitris Castellon Department: 102 Room: 3B Gender: M [employer] Feedback: : 1965 Requested By: Horace Rojas Order Number: [id number] Reading MD: Asha Pal Measurements Intervals [place] Rate: 95 P: 38 MS: 178 QRS: 30 QRSD: 92 T: 50 QT: 346 QTc: 399 Interpretive Statements SINUS RHYTHM Electronically Signed On 05-02-2017 16:39:34 EDT by Asha Pal
[2017-05-03 06:05] LABS: Basophils # 0.1 K/mcL (0.0-0.2); Basophils % 0.8 %; Eosinophils # 0.4 K/mcL (0.0-0.6); Eosinophils % 3.9 %; Hematocrit 47.5 % (37.5-50.1); Immature Granulocytes % 0.5 % (0-4); Lymphocytes # 2.1 K/mcL (0.6-4.6); Lymphocytes % 21.6 %; Mean Corpuscular Hemoglobin 29.2 pg (28.0-33.3); Mean Corpuscular Volume 91.2 fL (83.0-100.0); Mean Platelet Volume 10.7 fL (9.4-12.4); Monocytes # 1.3 K/mcL (0.0-1.3); Monocytes % 13.2 %; Neutrophils # 5.9 K/mcL (1.6-8.9); Platelet Count 248 K/mcL (140-400); Red Blood Count 5.21 M/mcL (4.19-5.50); Red Cell Distribution Width 13.6 % (11.5-14.5)
[2017-05-03 06:08] LABS: Hemoglobin 15.2 g/dL (12.9-16.9)
[2017-05-03 06:22] LABS: BUN/Creatinine Ratio 13 (6-26); Blood Urea Nitrogen 11 mg/dL (8-26); Calcium 9.2 mg/dL (8.6-10.8); Carbon Dioxide 34 mEq/L (19-29); Chloride 101 mEq/L (98-109); Glucose 118 mg/dL (70-99); Osmolality,Calculated 288 (280-300); Potassium 3.9 mEq/L (3.5-4.5); Sodium 139 mEq/L (136-145); eGFR For African Americans > 60 (> 60); eGFR For Non-African Americans > 60 (> 60)
[2017-05-03] MEDS: Aspirin 81 MG TAB.CHEW PO SCH (07:52)
[2017-05-03] MEDS: Furosemide 20 MG TABLET PO SCH (07:53)
[2017-05-03] MEDS: APIXABAN 5 MG TABLET PO SCH (07:53)
[2017-05-03] MEDS: Multivit/Ca/Min/Fe/FA 1 TAB TABLET PO SCH (07:53)
[2017-05-03] MEDS: FLUoxetine 20 MG CAPSULE PO SCH (07:53)
[2017-05-03] MEDS: Budesonide/Formoterol 160/4.5 MDI IH SCH (08:24)
[2017-05-03] MEDS: *HR* HYDROcodone/Acet 5/325 mg TABLET PO PRN (08:44)
[2017-05-03 11:52] VITALS: BP 143/79
--- NOTE | 2017-05-03 12:05 | Consult Note ---
Date of Encounter: 05/03/17 Time of Encounter: 12:00 Assessment & Recommendation (1) Depression Current visit: Yes Status: Acute Assessment & Recommendation: Client currently takes Prozac 40mg at home. Medication can be titrated up to 80mg. Recommend maximizing dose before switching agents. Also recommend counseling, both individual and couples counseling. Multiple stressors at home. Recommend social work consult for referral information for outpatient services close to their home. Qualifiers: Depression Type: major depressive disorder Major depression recurrence: recurrent Active/Remission status: currently active Major depression episode severity: moderate Qualified Code(s): F33.1 - Major depressive disorder, recurrent, moderate History of Present Illness Requesting Physician: Génesis Wright CNP Reason for consult: evaluation for mental health treatment History of present illness: Mr. Castellon is a 52 year old male who was admitted secondary to stroke like symptoms. Medical work-up negative thus far but he is recovering from a series of strokes in January so current symptoms may be related to a progression of that event. Takes Prozac for depression. Receiving 20mg but reports he typically takes 40mg at home. Prescribed by PCP. Denies SI. present and reports is irritable and complains of frequent headaches. She believes they are both under stress but that their stress is less now than in previous months. Both she and client mentioned financial strain, difficulty with their daughter, and marital conflict. CC: Génesis Wright CNP Past Med Surg Social Fam HX - Past Medical History Medical history: COPD, CVA, kidney stones, other - Past Psychiatric History Psychiatric history: Reports: depression Family psychiatric history: Unknown Family History of Suicide: Unknown - Past Surgical History Surgical History: orthopedic, other - Social History Smoking Status: Current every day smoker Smokeless Tobacco Status: No Alcohol use: none Drug use: none - Family History Mother Hx Family Cancer: Yes Medications & Allergies FLUoxetine HCl [Prozac] 20 mg PO DAILY 01/09/17 [History] Budesonide/Formoterol 160/4.5 [Symbicort 160/4.5] 2 puff IH BIDR #1 inhaler [Rx] Furosemide [Lasix] 20 mg PO BID #60 tablet 01/15/17 [Rx] Albuterol Sulfate [Albuterol Inhaler] 2 puff IH Q4HR PRN 02/03/17 [History] Ipratropium/Albuterol Neb [Duoneb] 3 ml IH Q6HR PRN 02/03/17 [History] Multivitamin [Multi-Day Vitamins] 1 each PO DAILY 02/03/17 [History] Apixaban [Eliquis] 5 mg PO BID #60 tablet 02/09/17 [Rx] Aspirin 81 mg PO DAILY #30 02/10/17 [Rx] HYDROcodone/Acet 5/325 mg [[place] 5-325 mg] 1 tab PO BID PRN 04/13/17 [History] SUMAtriptan succinate [Imitrex] 50 mg PO Q2H PRN MDD 100 mg 05/01/17 [History] 3 Allergy/AdvReac Type Severity Reaction Status Date / Time No Known Allergies Allergy Verified 02/22/17 13:11 Review of Systems Constitutional: Denies: fever, chills, weakness, weight change Eyes: Denies: eye pain, vision change Ears, Nose, Throat: Denies: ear pain, throat pain, dental pain, hearing loss, congestion Cardiovascular: Denies: chest pain, palpitations, dyspnea on exertion Respiratory: Denies: cough, dyspnea, wheezes Gastrointestinal: Denies: abdominal pain, nausea, vomiting, diarrhea, constipation Genitourinary male: Denies: urgency, dysuria, frequency, genital lesions Genitourinary female: Denies: urgency, dysuria, frequency, abnormal menses, dyspareunia Musculoskeletal: Denies: joint swelling, joint pain Integumentary: Denies: rash, lesions, pruritus Neurological: Reports: headache, weakness, confusion, other Psychiatric: Reports: depression Endocrine: Denies: fatigue, heat or cold intolerance Hematologic/Lymphatic: Denies: easy bruising, lymphadenopathy Allergic/Immunologic: Denies: urticaria, itchy eyes Mental Status Exam Patient orientation: Yes Person, Yes Time, Yes Place Level of alertness: Alert Patient appearance: Appropriate Behavior: cooperative Psychomotor activity: Normal Eye contact: Maintains Eye Contact Mood description: Irritable Affect description: congruent with mood Speech pattern: Stuttering Speech volume: Normal Thought process: Linear, Goal Oriented Thought content: No Suicidal ideation, No Homicidal ideation, No Overt delusions Perceptual disturbances: No Auditory hallucinations, No Visual hallucinations Attention span: Capable of Focused Attention Memory description: Grossly Intact Patient reliability: Reliable Historian Intelligence estimate: Average Judgment: Fair Insight: Partial Results - Vital Signs Vital signs: Temp Pulse Resp BP Pulse Ox 98.1 F 70 18 143/79 94 05/03/17 11:51 05/03/17 11:51 05/03/17 11:51 05/03/17 11:51 05/03/17 11:51 - Labs Labs: Laboratory Last Values WBC 9.9 K/mcL (4.3-11.1) 05/03/17 05:30 RBC 5.21 M/mcL (4.19-5.50) 05/03/17 05:30 Hgb 15.2 g/dL (12.9-16.9) D 05/03/17 05:30 Hct 47.5 % (37.5-50.1) 05/03/17 05:30 MCV 91.2 fL (83.0-100.0) 05/03/17 05:30 MCH 29.2 pg (28.0-33.3) 05/03/17 05:30 MCHC 32.0 g/dL (31.6-35.5) 05/03/17 05:30 RDW 13.6 % (11.5-14.5) 05/03/17 05:30 Plt Count 248 K/mcL (140-400) 05/03/17 05:30 MPV 10.7 fL (9.4-12.4) 05/03/17 05:30 Immature Gran % 0.5 % (0-4) 05/03/17 05:30 Seg Neutrophils % 60.0 % 05/03/17 05:30 Lymphocytes % 21.6 % 05/03/17 05:30 Monocytes % 13.2 % 05/03/17 05:30 Eosinophils % 3.9 % 05/03/17 05:30 Basophils % 0.8 % 05/03/17 05:30 Neutrophils # 5.9 K/mcL (1.6-8.9) 05/03/17 05:30 Lymphocytes # 2.1 K/mcL (0.6-4.6) 05/03/17 05:30 Monocytes # 1.3 K/mcL (0.0-1.3) 05/03/17 05:30 Eosinophils # 0.4 K/mcL (0.0-0.6) 05/03/17 05:30 Basophils # 0.1 K/mcL (0.0-0.2) 05/03/17 05:30 PT 13.6 Seconds (9.4-12.1) H 05/01/17 15:24 INR 1.3 05/01/17 15:24 APTT 36.1 Seconds (26.0-36.0) H 05/01/17 15:24 ABG pH 7.42 pH Units (7.32-7.45) 05/01/17 17:41 ABG pCO2 46 mmHg (35-45) H 05/01/17 17:41 ABG pO2 90 mmHg (85-104) 05/01/17 17:41 ABG HCO3 30 mEq/L (21-27) H 05/01/17 17:41 ABG Total CO2 32 mEq/L (20-26) H 05/01/17 17:41 ABG O2 Saturation 97 % (95-98) 05/01/17 17:41 ABG Base Excess 5 mEq/L (-2 to 3) H 05/01/17 17:41 Sodium 139 mEq/L (136-145) 05/03/17 05:30 Potassium 3.9 mEq/L (3.5-4.5) 05/03/17 05:30 Chloride 101 mEq/L (98-109) 05/03/17 05:30 Carbon Dioxide 34 mEq/L (19-29) H 05/03/17 05:30 BUN 11 mg/dL (8-26) 05/03/17 05:30 Creatinine 0.84 mg/dL (0.72-1.25) 05/03/17 05:30 Est GFR ( Amer) > 60 (> 60) 05/03/17 05:30 Est GFR (Non-Af Amer) > 60 (> 60) 05/03/17 05:30 BUN/Creatinine Ratio 13 (6-26) 05/03/17 05:30 Glucose 118 mg/dL (70-99) H 05/03/17 05:30 POC Glucose 102 (58-89) H 05/02/17 07:17 Calculated Osmolality 288 (280-300) 05/03/17 05:30 Calcium 9.2 mg/dL (8.6-10.8) 05/03/17 05:30 Troponin I 0.01 ng/mL (0-0.03) 05/01/17 15:24 B-Natriuretic Peptide 34 pg/mL (0-100) 05/01/17 15:24 Urine Color Yellow (Yellow) 05/01/17 16:04 Urine Clarity Clear (Clear) 05/01/17 16:04 Urine pH 6.5 pH Units (5.0-8.0) 05/01/17 16:04 Ur Specific [place] 1.025 (1.010-1.025) 05/01/17 16:04 Urine Protein Negative mg/dL (Neg-Trace) 05/01/17 16:04 Urine Glucose (UA) Normal mg/dL (Normal) 05/01/17 16:04 Urine Ketones Negative mg/dL (Negative) 05/01/17 16:04 Urine Blood Negative (Negative) 05/01/17 16:04 Urine Nitrite Negative (Negative) 05/01/17 16:04 Urine Bilirubin Negative (Negative) 05/01/17 16:04 Urine Urobilinogen Normal mg/dL (Normal) 05/01/17 16:04 Ur Leukocyte Esterase Negative (Negative) 05/01/17 16:04 Ur Culture Indicated? NO (NO) 05/01/17 16:04 - Impressions Impressions Brain MRI 05/02/17 09:00 IMPRESSION: No acute infarct. D/ / Jose Daniel Grant MD / Jose Daniel Grant MD Interpreting Provider: Jose Daniel Grant MD Consult Discharge Plan - Plan Referrals: Juanito Daley MD [Partnered Physician] - 05/10/17 9:45 am Wayne Pham MD [Partnered Physician] - 05/18/17 1:00 pm
--- NOTE | 2017-05-03 12:52 | Discharge Summary ---
Date of Encounter: 05/03/17 Time of Encounter: 09:40 - Discharge Diagnosis (1) CVA (cerebral vascular accident) Priority: Primary Status: Acute Comments: Prior history. Brain MRI currently negative for acute infarct, remote only. All imaging negative for acute infarct. Angiography CT 05/01/17 15:23 IMPRESSION: No acute intracranial abnormality. Remote, small left frontal and parietal lobe infarcts. No flow-limiting stenosis of the cervical carotid or vertebral arteries. There is new, mild narrowing of the mid basilar artery. Otherwise, no intracranial flow-limiting stenosis. D/ / 05/01/2017 17:36:19 Margaux Marie MD / earnoyadira Interpreting Provider: Margaux Marie MD Neck CTA 05/01/17 15:23 IMPRESSION: No acute intracranial abnormality. Remote, small left frontal and parietal lobe infarcts. No flow-limiting stenosis of the cervical carotid or vertebral arteries. There is new, mild narrowing of the mid basilar artery. Otherwise, no intracranial flow-limiting stenosis. D/ / 05/01/2017 17:36:19 Margaux Marie MD / earnoyadira Interpreting Provider: Margaux Marie MD Brain MRI 05/02/17 09:00 IMPRESSION: No acute infarct. 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 Stutteirng remains today. Pt states that he has had a lot of added stress with family, finances, and work since CVA in January. All imaging has been negative. Pt has been seen by neurology and psychiatry, both suggest a stress component with his presentation. Psych recommends increasing dose of Prozac before switching agents, as well as individual and couples counseling. (3) RASHAWN (obstructive sleep apnea) Priority: Secondary Status: Chronic Comments: Continue bipap use at home. (4) Morbid obesity with BMI of 50.0-59.9, adult Priority: Secondary Status: Chronic Comments: Chronic. Lifestyle changes. (5) COPD (chronic obstructive pulmonary disease) Priority: Secondary Status: Chronic Comments: No acute exacerbation. Continue home medications and nebulizers, inhalers, etc. Qualifiers: COPD type: unspecified COPD Qualified Code(s): J44.9 - Chronic obstructive pulmonary disease, unspecified (6) DVT prophylaxis Priority: Secondary Status: Acute Comments: Continue Eliquis. - Discharge Medications Prescriptions: FLUoxetine HCl [PROzac] 10 mg PO DAILY #30 tablet Metoprolol [Lopressor] 12.5 mg PO BID #15 tablet Home Medications: Budesonide/Formoterol 160/4.5 [Symbicort 160/4.5] 2 puff IH BIDR #1 inhaler [Rx] Furosemide [Lasix] 20 mg PO BID #60 tablet 01/15/17 [Rx] Albuterol Sulfate [Albuterol Inhaler] 2 puff IH Q4HR PRN 02/03/17 [History] Ipratropium/Albuterol Neb [Duoneb] 3 ml IH Q6HR PRN 02/03/17 [History] Multivitamin [Multi-Day Vitamins] 1 each PO DAILY 02/03/17 [History] Apixaban [Eliquis] 5 mg PO BID #60 tablet 02/09/17 [Rx] Aspirin 81 mg PO DAILY #30 02/10/17 [Rx] HYDROcodone/Acet 5/325 mg [[place] 5-325 mg] 1 tab PO BID PRN 04/13/17 [History] SUMAtriptan succinate [Imitrex] 50 mg PO Q2H PRN MDD 100 mg 05/01/17 [History] FLUoxetine HCl [PROzac] 10 mg PO DAILY #30 tablet 05/03/17 [Rx] Metoprolol [Lopressor] 12.5 mg PO BID #15 tablet 05/03/17 [Rx] Allergies/Adverse Reactions: 3 Allergy/AdvReac Type Severity Reaction Status Date / Time No Known Allergies Allergy Verified 02/22/17 13:11 Procedures/tests Complete & Pending: Procedures Performed prior 72 hours Category Date Time Status MR head/brain wo con [MR] Routine MRI 05/02/17 09:00 Completed Date of admission: 05/01/17 18:00 Primary care physician: Sherman Mccall Jr, MD Consults: 05/01/17 19:07 Consult to Neurology [CONS] Routine Consulting Provider: [facility] Reason for Consult: evolution of prior infarct; new speech deficits Time Notified: 19:08 Call Completed: Yes 05/01/17 20:15 Consult to Respiratory Therapy [CONS] Routine Reason for Consult: home bipap setup Call Completed: No 05/03/17 08:02 Consult to Psychiatry [CONS] Routine Consulting Provider: Psychiat[facility] Reason for Consult: Pt presents with dysarthria. Recent CVA. No new infarct on MRI or CT. Neuro feels it is related to increased stress at home, work ,and with family. Requesting evaluation for counseling, therapy, etc. Thank you. Time Notified: 08:03 Call Completed: Yes 05/03/17 12:36 Consult to [employer] [CONS] Routine Reason for SW Consult: follow up psych consult Discharging clinician: Shereen Moon Anticipated date of discharge: 05/03/17 - Patient Status Disposition: Home, Self-Care Condition: Good Functional capacity at discharge: independent ambulation Overall status at discharge: patient is not back to baseline - Discharge Instructions Follow Up With: Juanito Daley MD [Partnered Physician] - 05/10/17 9:45 am Wayne Pham MD [Partnered Physician] - 05/18/17 1:00 pm Forms: ED Satisfaction Letter Additional Instructions: Please follow up with your PCP in the next 7-10 days for a hospital follow up visit. Continue your normal medications. I have sent prescriptions for you to [facility] pharmacy Metoprolol started for HTN, and I have increased your Prozac, continue taking as directed. Return to the ER as needed for any other problems or concerns or if your symptoms return or worsen. - Diet and Activity Activity: increase activity as tolerated Diet: diabetic diet, low fat, low cholesterol Hospital course: Mr. Castellon is a 52 year old male with past medical history of CVA, morbid obesity ,, hypertension, COPD, RASHAWN, anxiety who presented to the emergency department with 2 day history of stuttering/dysarthria. He denies any other symptoms, no headache, no blurred vision, weakness, dizziness or lightheadedness. His speech is clear, however he does stutter. He does make himself understood and is able to converse. Patient reports increased stress at home, states that his stepdaughter is living with him, he has financial concerns, and he is out of work due to CVA. Chest x-ray showed stable cardiomegaly without overt failure, no acute pulmonary processes. EKG was sinus rhythm with a rate of 95, HI interval 178 QRS 92, QTC 399, CTA head showed no acute intracranial abnormality with remote small left frontal parietal lobe infarcts, no flow-limiting stenosis of cervical carotid or vertebral arteries, there is a new, mild narrowing of the mid basilar artery otherwise no intracranial flow-limiting stenosis. MRI showed no acute infarct. Patient was seen by neurology who reviewed all results, it was felt that possibly stuttering is due to stress component. Patient reports a lot of stress with stepdaughter, he is not working and is having difficulty paying his bills, and is worried about getting disability since his stroke. Patient was also evaluated by psychiatry who recommended increasing Prozac. He is on 20 mg at this time, I increased it to 30. He will need to follow up with primary care or psychiatry for dosage adjustments to titrate up to 80 milligrams per recommendation of psychiatry. Patient was also hypertensive on admission, admitted her ordered metoprolol 25 mg by mouth twice a day, it appeared that his pulse was low this morning, so I will send him home on 12.5 by mouth twice a day, which can be titrated by primary care follow-up visit. Blood pressure has been stable and within normal limits. Pulse has been around 70. Labs are within normal limits. Lipid panel was within normal limits in January, he is not on a statin agent recommended at this time. Patient is stable and appropriate for discharge. - Time Spent with Patient Total time spent providing and/or coordinating discharge services: Less than 30 minutes - Constitutional Vitals: Temp Pulse Resp BP Pulse Ox 98.1 F 70 18 143/79 94 05/03/17 11:51 05/03/17 11:51 05/03/17 11:51 05/03/17 11:51 05/03/17 11:51 General appearance: Present: cooperative, A&O X 3, no acute distress, answers questions appropriately - Head Head exam: Present: atraumatic, normal inspection, normocephalic - Eye Eye exam: Present: normal appearance, conjuntiva pink, sclera anicteric - Neck Neck exam general surgery: Present: supple, trachea midline. Absent: lymphadenopathy, tenderness - Respiratory Respiratory exam: Present: CTAB. Absent: accessory muscle use, chest wall tenderness, rales, respiratory distress, rhonchi, wheezes - Cardiovascular Cardiovascular exam: Present: RRR, +S1, +S2. Absent: diastolic murmur, gallop, rubs, systolic murmur - GI/Abdominal GI/Abdominal exam: Present: distended, normal bowel sounds, soft, no peritoneal signs. Absent: hepatomegaly, tenderness - Extremities Exam Extremities exam: Present: normal capillary refill, warm, radial pulses palpable and symmetrical. Absent: calf tenderness, cyanotic, pedal edema, tenderness - Neurological Exam Neurological exam: Present: alert, CN II-XII intact, oriented X3, no focal deficits, strengths equal and symetr throughout. Absent: altered, facial droop , speech deficit - Skin Skin exam: Present: dry, intact, normal color, warm. Absent: rash
--- NOTE | 2017-05-03 17:15 | Neurology Progress Note ---
Date of Encounter: 05/03/17 Time of Encounter: 07:40 Assessment and Plan (1) Dysarthria Status: Acute Patient seen and examined he does have a history of stroke but now having significant stuttering at the same time he acknowledges that he has been under a lot of stress perhaps the main contributing factor for his symptoms. MRI of the brain did not show any evidence of stroke CHANGES noted on CT angiogram suggested continue on same antiplatelet therapy patient would probably benefit from psychological evaluation or perhaps adjustment of his medication for underlying distress. DAREK MORENO MD Subjective Interval history: Stable no evidence of ischemic stroke on MRI of the brain seems to be back to his baseline Objective - Constitutional Vitals: Temp Pulse Resp BP Pulse Ox 98.1 F 70 18 143/79 94 05/03/17 11:51 05/03/17 11:51 05/03/17 11:51 05/03/17 11:51 05/03/17 11:51 - Stroke Contraindication Rehab Services Not Assessed: Returned to Prior Level of Function Results - Laboratory Findings CBC and BMP: 05/03/17 05:30 05/03/17 05:30 Abnormal lab findings: Abnormal lab results PT 13.6 Seconds (9.4-12.1) H 05/01/17 15:24 APTT 36.1 Seconds (26.0-36.0) H 05/01/17 15:24 ABG pCO2 46 mmHg (35-45) H 05/01/17 17:41 ABG HCO3 30 mEq/L (21-27) H 05/01/17 17:41 ABG Total CO2 32 mEq/L (20-26) H 05/01/17 17:41 ABG Base Excess 5 mEq/L (-2 to 3) H 05/01/17 17:41 Carbon Dioxide 34 mEq/L (19-29) H 05/03/17 05:30 Glucose 118 mg/dL (70-99) H 05/03/17 05:30 POC Glucose 102 (58-89) H 05/02/17 07:17 Consult Discharge Plan - Plan Instructions: Transient Ischemic Attack (DC), Chronic Obstructive Pulmonary Disease (DC) Additional Instructions: Please follow up with your PCP in the next 7-10 days for a hospital follow up visit. Continue your normal medications. I have sent prescriptions for you to [facility] Metoprolol started for HTN, and I have increased your Prozac, continue taking as directed. Return to the ER as needed for any other problems or concerns or if your symptoms return or worsen. Referrals: Juanito Daley MD [Partnered Physician] - 05/10/17 9:45 am Wayne Pham MD [Partnered Physician] - 05/18/17 1:00 pm Prescriptions: FLUoxetine HCl [PROzac] 10 mg PO DAILY #30 tablet Metoprolol [Lopressor] 12.5 mg PO BID #15 tablet
== END 2017-05-03 13:45 | disposition home or self-care (01) ==
LOC: EMEROO 14:41 → 3BNU 14:41
PROVIDERS: ADMIT Internal Medicine Hematology & Oncology; ATTEND Registered Nurse